=== PATIENT | female | born 1940 | race Caucasian/White ===

== ENCOUNTER 2018-02-03 19:43 | Inpatient (IN) ==
[2018-02-03] MEDS ORDERED: Naloxone 0.4 MG/ML INJ IVP PRN (22:58)
[2018-02-03] MEDS ORDERED: SODIUM CHLORIDE/NAHCO3/KCL/PEG 4,000 ML SOLN.RECON PO ONE (23:31)
[2018-02-03 23:42] LABS: Basophils # 0.1 K/mcL (0.0-0.2); Basophils % 0.7 %; Eosinophils # 0.3 K/mcL (0.0-0.6); Eosinophils % 3.2 %; Hematocrit 26.7 % (35.3-44.9); Hemoglobin 8.2 g/dL (11.5-15.4); Immature Granulocytes % 0.6 % (0-4); Lymphocytes # 1.8 K/mcL (0.6-4.6); Lymphocytes % 18.5 %; Mean Corpuscular HGB Conc 30.7 g/dL (31.6-35.5); Mean Corpuscular Hemoglobin 27.7 pg (28.0-33.3); Mean Corpuscular Volume 90.2 fL (83.0-100.0); Mean Platelet Volume 10.2 fL (9.4-12.4); Monocytes # 1.4 K/mcL (0.0-1.3); Monocytes % 13.9 %; Neutrophils # 6.2 K/mcL (1.6-8.9); Platelet Count 297 K/mcL (140-400); Red Blood Count 2.96 M/mcL (3.82-4.97); Red Cell Distribution Width 19.6 % (11.5-14.5); Segmented Neutrophils % 63.1 %
--- NOTE | 2018-02-04 01:05 | Internal Med History&Physical ---
Date of Encounter: 02/04/18 Time of Encounter: 01:04 Internal Medicine - H&P: HPI Chief complaint: Rectal bleeding Admitted From: Emergency Dept Plans for Post Hospital Care: Home History of present illness: Ms. Clark is a 77 year old female with history of ESRD, atrial fibrillation on anticoagulation, hypertension, hypothyroidism, who presents with complaints of rectal bleeding. Patient reports a 3 day history of bright red blood per rectum, with or without mixed stool. Reports similar episodes several years ago. She denies abdominal pain, nausea, vomiting, diarrhea. No melena, fevers or chills. Last colonoscopy was 3 years ago, which showed benign polyps. Patient is noted to be on anticoagulation with Pradaxa. No chest pain, dyspnea, palpitations. Past Med Surg Social Fam HX - Past Medical History Source: patient Medical history: atrial fibrillation, CHF, coronary artery disease, CVA, dialysis, hyperlipidemia, hypertension, renal disease, thyroid disease - Past Surgical History Surgical History: breast surgery, cholecystectomy, hysterectomy, orthopedic, other (right rotator cuff repair), other (nephrectomy) - Social History Smoking Status: Never smoker Smokeless Tobacco Status: No Alcohol use: unknown, rarely Drug use: none Occupational status: retired, disabled Current living situation: Home, With Family Activity Level: Independent ambulation Recent Out of Country Travel Within the Last 8 Weeks: No Exposure or Possible Exposure to Illness During Travel: No - Additional Family History Additional family history: reviewed and found noncontributory Internal Medicine - H&P: Meds Aspirin [Lo-Dose Aspirin EC] 81 mg PO 02/03/18 [History] Atorvastatin [Lipitor] 40 mg PO HS 02/03/18 [History] Dabigatran Etexilate Mesylate [Pradaxa] 75 mg PO DAILY 02/03/18 [History] Furosemide [Lasix] 20 mg PO 3XW 02/03/18 [History] 3 Allergy/AdvReac Type Severity Reaction Status Date / Time Penicillins AdvReac Unknown See Verified 02/03/18 23:30 Comments All Systems PM: A 10-system review of systems was performed and is negative for pertinent findings except as documented above in the HPI. - Constitutional Constitutional: no chills, no fever(s), no night sweats - EENT Eyes: no change in vision, no discharge, no pain, no photophobia Ears: no ear discharge, no ear pain, no tinnitus Nose, mouth and throat: no dysphagia, no nasal discharge, no neck pain, no sore throat - Cardiovascular Cardiovascular ROS IM: no chest pain, no diaphoresis, no dyspnea, no lightheadedness, no palpitations, no syncope - Respiratory Respiratory: no cough, no dyspnea, no wheezing, no excessive phlegm production - Gastrointestinal Gastrointestinal: hematochezia - Genitourinary Genitourinary: no change in urinary stream, no dysuria, no flank pain, no hematuria - Musculoskeletal Musculoskeletal ROS IM: no numbness, no tingling - Integumentary Integumentary IM: no rash, no unusual bruising - Neurological Neurological ROS: no confusion, no convulsions, no focal weakness, no numbness, no tingling, no tremor(s) - Hematologic/Lymphatic Hematologic/Lymphatic: no easy bruising - Constitutional Vitals: Temp Pulse Resp BP Pulse Ox 98.1 F 81 18 170/64 95 02/03/18 23:10 02/03/18 23:10 02/03/18 23:10 02/03/18 23:10 02/03/18 23:10 General appearance: Present: A&O X 3 (slightly drowsy but able to answer appropriately), answers questions appropriately - Respiratory Respiratory exam: Present: CTAB. Absent: accessory muscle use, rales, rhonchi, wheezes - Cardiovascular Cardiovascular exam: Present: irregular rhythm, +S1, +S2. Absent: diastolic murmur, gallop, rubs, systolic murmur - GI/Abdominal GI/Abdominal exam: Present: normal bowel sounds, soft, no peritoneal signs. Absent: distended, tenderness - Extremities Exam Extremities exam: Present: warm, radial pulses palpable and symmetrical. Absent : calf tenderness, cyanotic, pedal edema - Neurological Exam Neurological exam: Present: CN II-XII intact, oriented X3, no focal deficits. Absent: pronater drift, facial droop, speech deficit - Skin Skin exam: Present: dry, intact Internal Med - H&P Results - Labs CBC & Chem 7: 02/03/18 23:27 Labs: Short CBC 02/03/18 Range/Units 23:27 WBC 9.7 (4.3-11.1) K/mcL Hgb 8.2 L (11.5-15.4) g/dL Hct 26.7 L (35.3-44.9) % Plt Count 297 (140-400) K/mcL Neutrophils # 6.2 (1.6-8.9) K/mcL - EKG Data -: EKG Interpreted by Myself (atrial fibrillation) - Assessment and plan (1) GI bleed Current Visit: Yes Status: Acute Assessment and plan: Bright red bleeding per rectum reported. Hb currently stable, around 8.5; hold anticoagulation with Pradaxa for now. Monitor Hb closely. GI has been consulted , plan for possible colonoscopy in am; keep NPO for now; Qualifiers: GI bleed type/associated pathology: anorectal hemorrhage Qualified Code(s) : K62.5 - Hemorrhage of anus and rectum (2) ESRD on hemodialysis Current Visit: Yes Status: Chronic Assessment and plan: no missed HD sessions; next session on Tuesday; resume home meds; (3) Essential hypertension Current Visit: Yes Status: Chronic (4) Hyperlipidemia Current Visit: Yes Status: Chronic Qualifiers: Hyperlipidemia type: unspecified Qualified Code(s): E78.5 - Hyperlipidemia , unspecified (5) Atrial fibrillation Current Visit: Yes Status: Chronic Assessment and plan: rate-controlled; continue beta samira; hold anticoagulation with Pradaxa due to GI bleed; Qualifiers: Atrial fibrillation type: paroxysmal Qualified Code(s): I48.0 - Paroxysmal atrial fibrillation (6) CAD (coronary artery disease) Current Visit: Yes Status: Chronic Qualifiers: Coronary Disease-Associated Artery/Lesion type: [place] artery [place] vs. transplanted heart: [place] heart Associated angina: without angina Qualified Code(s): I25.10 - Atherosclerotic heart disease of [place] coronary artery without angina pectoris (7) Hypothyroidism Current Visit: Yes Status: Chronic Qualifiers: Hypothyroidism type: unspecified Qualified Code(s): E03.9 - Hypothyroidism , unspecified - Time Spent With Patient Total time spent is greater than 50% in coordination of care (as documented) at patient's floor/unit and/or counseling patient:
[2018-02-04 05:12] LABS: Basophils # 0.1 K/mcL (0.0-0.2); Basophils % 0.7 %; Eosinophils # 0.4 K/mcL (0.0-0.6); Eosinophils % 4.1 %; Hematocrit 27.1 % (35.3-44.9); Hemoglobin 8.1 g/dL (11.5-15.4); Immature Granulocytes % 0.4 % (0-4); Immature Platelets 2.4 % (1.1-6.1); Lymphocytes # 1.9 K/mcL (0.6-4.6); Lymphocytes % 19.8 %; Mean Corpuscular HGB Conc 29.9 g/dL (31.6-35.5); Mean Corpuscular Hemoglobin 27.4 pg (28.0-33.3); Mean Corpuscular Volume 91.6 fL (83.0-100.0); Mean Platelet Volume 10.1 fL (9.4-12.4); Monocytes # 1.2 K/mcL (0.0-1.3); Monocytes % 12.4 %; Neutrophils # 6.1 K/mcL (1.6-8.9); Platelet Count 317 K/mcL (140-400); Red Blood Count 2.96 M/mcL (3.82-4.97); Red Cell Distribution Width 19.5 % (11.5-14.5); Segmented Neutrophils % 62.6 %
[2018-02-04 05:34] LABS: Magnesium 1.6 mg/dL (1.6-2.6); Potassium 3.4 mEq/L (3.5-5.1)
[2018-02-04 05:35] LABS: Platelet Estimate Normal (Normal)
[2018-02-04 05:36] LABS: Anisocytosis 1+ (Not Present)
[2018-02-04] MEDS ORDERED: *HR* LORazepam 0.5 MG TABLET PO PRN (09:15)
[2018-02-04] MEDS ORDERED: Ondansetron 4 MG/2 ML VIAL IVP PRN (10:03)
--- NOTE | 2018-02-04 12:35 | Event Note ---
Date of Encounter: 02/04/18 Time of Encounter: 12:33 Nephrology Chart Review Hx of ESRD and biochemically there appear to be no urgent indications for HD today (Tuesday). Full consult to follow tomorrow. Thank you.
[2018-02-04 13:30] LABS: Basophils # 0.1 K/mcL (0.0-0.2); Basophils % 0.6 %; Eosinophils % 0.3 %; Hematocrit 29.5 % (35.3-44.9); Hemoglobin 8.9 g/dL (11.5-15.4); Immature Granulocytes % 0.4 % (0-4); Lymphocytes # 1.8 K/mcL (0.6-4.6); Lymphocytes % 12.9 %; Mean Corpuscular HGB Conc 30.2 g/dL (31.6-35.5); Mean Corpuscular Hemoglobin 27.5 pg (28.0-33.3); Monocytes # 1.2 K/mcL (0.0-1.3); Monocytes % 8.8 %; Neutrophils # 10.8 K/mcL (1.6-8.9); Platelet Count 320 K/mcL (140-400); Red Blood Count 3.24 M/mcL (3.82-4.97); Red Cell Distribution Width 19.4 % (11.5-14.5)
--- NOTE | 2018-02-04 13:30 | Internal Med Progress Note ---
Date of Encounter: 02/04/18 Time of Encounter: 12:56 - Assessment and plan (1) Sepsis Current Visit: Yes Status: Acute Assessment and plan: She does meet sepsis criteria with tachycardia and low grade fever will check CXR, UA, Blood cx and lactic acid will hold on IV fluids for now due to ESRD Will hold on Abx also for now.. since it's unclear etiology cont symptomatic and supportive care Qualifiers: Qualified Code(s): A41.9 - Sepsis, unspecified organism (2) GI bleed Current Visit: Yes Status: Acute Assessment and plan: Bright red bleeding per rectum Hb currently stable, around 8.5 Cont holding anticoagulation with Pradaxa for now Monitor Hb closely GI consulted Started on clear liquid diet possible colonoscopy in AM Qualifiers: GI bleed type/associated pathology: anorectal hemorrhage Qualified Code(s) : K62.5 - Hemorrhage of anus and rectum (3) ESRD on hemodialysis Current Visit: Yes Status: Chronic Assessment and plan: no missed HD sessions; next session on Tuesday; resume home meds Consulted Nephro (4) Essential hypertension Current Visit: Yes Status: Chronic Assessment and plan: will resume home meds (5) Hyperlipidemia Current Visit: Yes Status: Chronic Assessment and plan: on statin Qualifiers: Hyperlipidemia type: unspecified Qualified Code(s): E78.5 - Hyperlipidemia , unspecified (6) Atrial fibrillation Current Visit: Yes Status: Chronic Assessment and plan: rate failry controlled due to sepsis cont close monitoring cont BB for now held Pradaxa due to GI Bleed Qualifiers: Atrial fibrillation type: paroxysmal Qualified Code(s): I48.0 - Paroxysmal atrial fibrillation (7) CAD (coronary artery disease) Current Visit: Yes Status: Chronic Assessment and plan: resumed all home meds Qualifiers: Coronary Disease-Associated Artery/Lesion type: [place] artery [place] vs. transplanted heart: [place] heart Associated angina: without angina Qualified Code(s): I25.10 - Atherosclerotic heart disease of [place] coronary artery without angina pectoris (8) Hypothyroidism Current Visit: Yes Status: Chronic Assessment and plan: resume home meds Qualifiers: Hypothyroidism type: unspecified Qualified Code(s): E03.9 - Hypothyroidism , unspecified - Time Spent With Patient Total time spent is greater than 50% in coordination of care (as documented) at patient's floor/unit and/or counseling patient: - Subjective Interval history: Ms. Sumter is a 77 year old female with history of ESRD on HD M/W/F who had HD y/d, atrial fibrillation on anticoagulation with Pradaxa, hypertension, hypothyroidism, who presented to [facility] ER with complaints of rectal bleeding. Patient reports a 3 day history of bright red blood per rectum, with or without mixed stool. Reports similar episodes several years ago. She denies abdominal pain, nausea, vomiting, diarrhea. Last colonoscopy was 3 years ago, which showed benign polyps. Pt was given PO Ativan this morning, she looks little sleepy now. She is alert, awake and O x 3. Denied any CP. She does have low grade temp T max 100.1 - Constitutional Vitals: Temp Pulse Resp BP Pulse Ox 100.1 F H 134 20 176/97 85 02/04/18 12:39 02/04/18 12:39 02/04/18 12:39 02/04/18 12:39 02/04/18 12:39 General appearance: Present: A&O X 3 (slightly drowsy but able to answer appropriately), answers questions appropriately - Head Head exam: Present: atraumatic, normal inspection - Neck Neck exam general surgery: Present: supple - Respiratory Respiratory exam: Present: decreased breath sounds. Absent: rales, respiratory distress, rhonchi, wheezes - Cardiovascular Cardiovascular exam: Present: +S1, +S2, tachycardia. Absent: systolic murmur - GI/Abdominal GI/Abdominal exam: Present: normal bowel sounds, soft. Absent: rebound, rigid, tenderness - Extremities Exam Extremities exam: Present: pedal edema. Absent: calf tenderness, tenderness - Back Exam Back exam: Absent: CVA tenderness (L), CVA tenderness (R) - Neurological Exam Neurological exam: Present: alert, oriented X3 - Psychiatric Psychiatric exam: Present: normal affect, normal mood Internal Medicine: Result - Labs CBC & Chem 7: 02/04/18 04:48 02/04/18 04:48 Labs: Short CBC 02/03/18 02/04/18 Range/Units 23:27 04:48 WBC 9.7 9.7 (4.3-11.1) K/mcL Hgb 8.2 L 8.1 L (11.5-15.4) g/dL Hct 26.7 L 27.1 L (35.3-44.9) % Plt Count 297 317 (140-400) K/mcL Neutrophils # 6.2 6.1 (1.6-8.9) K/mcL BMP 02/04/18 04:48 Sodium 137 Potassium 3.4 L Chloride 96 L Carbon Dioxide 34 H BUN 15 Creatinine 2.61 H Glucose 100 Calcium 8.0 L Consult Discharge Plan - Plan Referrals: Tiffanie Dee [Primary Care Provider] -
[2018-02-04 14:05] LABS: ABG Base Excess 15 mEq/L (-2 to 3); ABG HCO3 39 mEq/L (21-27); ABG Oxygen Saturation 90 % (95-98); ABG PCO2 49 mmHg (35-45); ABG PH 7.51 pH Units (7.32-7.45); ABG PO2 54 mmHg (85-104); ABG TCO2 41 mEq/L (20-26)
[2018-02-04] MEDS: Acetaminophen 325 MG TABLET PO PRN (14:06)
[2018-02-04] MEDS ORDERED: Furosemide 40 MG/4 ML VIAL ONE (14:08)
[2018-02-04] MEDS ORDERED: Furosemide 40 MG/4 ML VIAL IVP ONE (14:08)
[2018-02-04 14:31] LABS: Albumin 2.9 g/dL (3.5-5.7); Bilirubin,Total 1.1 mg/dL (0.3-1.0); Calcium 8.3 mg/dL (8.6-10.3); Globulin 2.8 g/dL (2.4-3.5); Magnesium 1.6 mg/dL (1.6-2.6); Total Protein 5.7 g/dL (6.4-8.9)
[2018-02-04] MEDS: Ipratropium/Albuterol Neb 3 ML IH SCH ×2 (15:51→20:21)
[2018-02-04] MEDS: Piperacillin/Tazobactam 3.375 GM in 0.9 % Sodium Chloride Mini Bag 100 ML IVPB SCH (16:31)
[2018-02-04 18:20] LABS: Hematocrit 24.6 % (35.3-44.9); Hemoglobin 7.6 g/dL (11.5-15.4)
[2018-02-04 18:37] LABS: Adenovirus Not Detected (Not Detect); Bordetella Pertussis Not Detected (Not Detect); Chlamydophila pneumoniae Not Detected (Not Detect); Coronavirus 229E Not Detected (Not Detect); Coronavirus HKU1 Not Detected (Not Detect); Coronavirus NL63 Not Detected (Not Detect); Coronavirus OC43 Not Detected (Not Detect); Human Metapneumovirus Not Detected (Not Detect); Human Rhinovirus/Enterovirus Not Detected (Not Detect); Influenza A Subtype 2009 H1 Not Detected (Not Detect); Influenza A Untypeable Not Detected (Not Detect); Influenza B Not Detected (Not Detect); Mycoplasma pneumoniae Not Detected (Not Detect); Parainfluenza Virus 1 Not Detected (Not Detect); Parainfluenza Virus 2 Not Detected (Not Detect); Parainfluenza Virus 3 Not Detected (Not Detect); Parainfluenza Virus 4 Not Detected (Not Detect); Respiratory Syncytial Virus Not Detected (Not Detect)
[2018-02-04] MEDS ORDERED: *HR* Morphine 2 MG/ML SYRINGE IVP PRN ×2 (23:17→23:23)
--- NOTE | 2018-02-04 23:36 | Event Note ---
Date of Encounter: 02/04/18 Time of Encounter: 23:34 Rapid Response was called at 2310; arrived promptly to bedside; Patient was admitted yesterday for evaluation of GI bleed/hematochezia; she was also recently treated for acute CHF and Pneumonia at a different facility and discharged 3 days prior to this admission; SHe was noted to have fever, hypoxia and dyspnea earlier today and started on broad spectrum antibiotics and placed on BiPAP; Patient is noted to be tired and tachypneic, reports feeling sick; Chest- S1, S2 heard, tachycardic, irregular rhythm Lungs with coarse breath sounds and bibasal coarse crackles at bases Patient has been on BiPAP; she received a total of 4mg IV Morphine, with RR somewhat improved but no significant; ABG could not be obtained after 2 attemtps ; It was decided to intubate the patient; however she refused; RN and myself spoke to daughter Mayra Harmon, who confirmed patient signed paperwork for DNR /DNI at [facility]; Will start patient on IV Precedex drip and transfer to ICU/2N overflow for closer monitoring;
[2018-02-04] MEDS ORDERED: *HR* Morphine 2 MG/ML SYRINGE IVP ONE ×2 (23:45)
[2018-02-05] MEDS: Dexmedetomidine HCl 400 MCG/100 ML MLS IVC SCH (00:09)
[2018-02-05 00:47] LABS: Hematocrit 25.3 % (35.3-44.9); Hemoglobin 7.7 g/dL (11.5-15.4)
[2018-02-05] MEDS: Ipratropium/Albuterol Neb 3 ML IH SCH ×6 (01:11→20:32)
[2018-02-05 01:58] LABS: ABG Base Excess 10 mEq/L (-2 to 3); ABG HCO3 36 mEq/L (21-27); ABG Oxygen Saturation 91 % (95-98); ABG PCO2 54 mmHg (35-45); ABG PH 7.43 pH Units (7.32-7.45); ABG PO2 61 mmHg (85-104); ABG TCO2 38 mEq/L (20-26); Blood Gas Modality BiLevel; Blood Gas PEEP 6 cm H2O
[2018-02-05] MEDS ORDERED: Acetaminophen IV 500 MG/50 ML INFUS..BTL IVPB ONE (02:29)
[2018-02-05] MEDS: Piperacillin/Tazobactam 3.375 GM in 0.9 % Sodium Chloride Mini Bag 100 ML IVPB SCH ×2 (02:50→14:53)
[2018-02-05 03:57] LABS: Basophils # 0.1 K/mcL (0.0-0.2); Basophils % 0.6 %; Eosinophils % 0.1 %; Hematocrit 25.7 % (35.3-44.9); Hemoglobin 7.6 g/dL (11.5-15.4); Immature Granulocytes % 0.7 % (0-4); Lymphocytes # 2.1 K/mcL (0.6-4.6); Lymphocytes % 11.7 %; Mean Corpuscular HGB Conc 29.6 g/dL (31.6-35.5); Mean Corpuscular Hemoglobin 27.2 pg (28.0-33.3); Mean Corpuscular Volume 92.1 fL (83.0-100.0); Monocytes # 0.8 K/mcL (0.0-1.3); Monocytes % 4.6 %; Neutrophils # 14.6 K/mcL (1.6-8.9); Platelet Count 276 K/mcL (140-400); Red Blood Count 2.79 M/mcL (3.82-4.97); Segmented Neutrophils % 82.3 %
[2018-02-05 04:17] LABS: Albumin 2.8 g/dL (3.5-5.7); Calcium 8.2 mg/dL (8.6-10.3); Phosphorous 3.8 mg/dL (2.7-4.5); Potassium 4.1 mEq/L (3.5-5.1)
[2018-02-05] MEDS ORDERED: Aminoglycoside Consult 1 EACH MC ONE (07:36)
[2018-02-05] MEDS ORDERED: Furosemide 40 MG/4 ML VIAL IVP ONE (07:57)
--- NOTE | 2018-02-05 08:05 | Internal Med Progress Note ---
Date of Encounter: 02/05/18 Time of Encounter: 08:00 - Assessment and plan (1) Acute respiratory failure with hypoxia and hypercapnia Current Visit: Yes Status: Acute Assessment and plan: Due to MLL PNA Reviewed CXR from y/d showed MLL infiltrates and inc vascular congestion reviewed ABG cont BiPAP for now NPO Last night pt and her family requested for DNR / DNI will talk to the family again today cont broad spec abx Zosyn and Vanc Sputum legionella and Strep - negative Resp viral panel - Negative Blood cx - P Sputum cx- P Pt is still high risk and required current level of critical care strict I & O ordered f.u CXR also gave another dose of Lasix 40mg today Will talk to Nephro about possible HD today (2) HCAP (healthcare-associated pneumonia) Current Visit: Yes Status: Acute Assessment and plan: mostly bacetrail cont broad spec abx (3) Sepsis Current Visit: Yes Status: Acute Assessment and plan: She does meet sepsis criteria with tachycardia, fever and source of inf as PNA cont broad spec abx Q6 Accu check Qualifiers: Qualified Code(s): A41.9 - Sepsis, unspecified organism (4) GI bleed Current Visit: Yes Status: Acute Assessment and plan: Bright red bleeding per rectum Hb currently stable, around 7.6 Cont holding anticoagulation with Pradaxa for now Monitor Hb closely GI consulted Started on clear liquid diet possible colonoscopy on Tuesday when pt's resp function stabilizes Qualifiers: GI bleed type/associated pathology: anorectal hemorrhage Qualified Code(s) : K62.5 - Hemorrhage of anus and rectum (5) ESRD on hemodialysis Current Visit: Yes Status: Chronic Assessment and plan: no missed HD sessions; next session on Tuesday; resume home meds Will talk to nephro about possible HD today (6) Essential hypertension Current Visit: Yes Status: Chronic Assessment and plan: will resume home meds (7) Hyperlipidemia Current Visit: Yes Status: Chronic Assessment and plan: on statin Qualifiers: Hyperlipidemia type: unspecified Qualified Code(s): E78.5 - Hyperlipidemia , unspecified (8) Atrial fibrillation Current Visit: Yes Status: Chronic Assessment and plan: rate failry controlled due to sepsis cont close monitoring cont BB for now held Pradaxa due to GI Bleed Qualifiers: Atrial fibrillation type: paroxysmal Qualified Code(s): I48.0 - Paroxysmal atrial fibrillation (9) CAD (coronary artery disease) Current Visit: Yes Status: Chronic Assessment and plan: resumed all home meds Qualifiers: Coronary Disease-Associated Artery/Lesion type: [place] artery [place] vs. transplanted heart: [place] heart Associated angina: without angina Qualified Code(s): I25.10 - Atherosclerotic heart disease of [place] coronary artery without angina pectoris (10) Hypothyroidism Current Visit: Yes Status: Chronic Assessment and plan: resume home meds Qualifiers: Hypothyroidism type: unspecified Qualified Code(s): E03.9 - Hypothyroidism , unspecified - Time Spent With Patient Total time spent is greater than 50% in coordination of care (as documented) at patient's floor/unit and/or counseling patient: - Subjective Interval history: Ms. Clark is a 77 year old female with history of ESRD on HD M/W/F who had HD y/d, atrial fibrillation on anticoagulation with Pradaxa, hypertension, hypothyroidism, who presented to [facility] ER with complaints of rectal bleeding. Patient reports a 3 day history of bright red blood per rectum, with or without mixed stool. Reports similar episodes several years ago. She denies abdominal pain, nausea, vomiting, diarrhea. Last colonoscopy was 3 years ago, which showed benign polyps. Pt went into acute hypoxic and hypercapneic resp failure with multi lobular pneumonia y/d. So pt was started on empirical abx Zosyn, Vancomycin and placed her on BiPAP. Later last night around 11 PM she became more SOB and tachypneic. pt refused for intubation and requested for DNR/DNI only. Pt was transferred to ICU for further care. When I examined the pt this morning she is alert, awake and O to self. She is currently on BiPAP 09/07 , Fio2 60% Spo2 - 96. Pt denied any CP. Currently on precedex gtt. - Constitutional Vitals: Temp Pulse Resp BP Pulse Ox 99.7 F H 84 31 105/45 99 02/05/18 07:57 02/05/18 06:00 02/05/18 06:00 02/05/18 06:00 02/05/18 06:00 General appearance: Present: A&O X 3 (slightly drowsy but able to answer appropriately), severe distress, answers questions appropriately - Head Head exam: Present: atraumatic, normal inspection - Respiratory Respiratory exam: Present: decreased breath sounds, rales, respiratory distress , rhonchi, wheezes - Cardiovascular Cardiovascular exam: Present: irregular rhythm, +S1, +S2. Absent: tachycardia - GI/Abdominal GI/Abdominal exam: Present: normal bowel sounds, soft. Absent: rebound, rigid, tenderness - Extremities Exam Extremities exam: Present: pedal edema. Absent: calf tenderness, tenderness - Back Exam Back exam: Absent: CVA tenderness (L), CVA tenderness (R) - Neurological Exam Neurological exam: Present: alert, altered - Psychiatric Psychiatric exam: Present: anxious - Skin Skin exam: Absent: rash Internal Medicine: Result - Labs CBC & Chem 7: 02/05/18 03:45 02/05/18 03:45 Labs: Short CBC 02/04/18 02/04/18 02/05/18 Range/Units 13:17 18:11 00:38 WBC 14.0 H (4.3-11.1) K/mcL Hgb 8.9 L 7.6 L 7.7 L (11.5-15.4) g/dL Hct 29.5 L 24.6 L 25.3 L (35.3-44.9) % Plt Count 320 (140-400) K/mcL Neutrophils # 10.8 H (1.6-8.9) K/mcL 02/05/18 Range/Units 03:45 WBC 17.8 H (4.3-11.1) K/mcL Hgb 7.6 L (11.5-15.4) g/dL Hct 25.7 L (35.3-44.9) % Plt Count 276 (140-400) K/mcL Neutrophils # 14.6 H (1.6-8.9) K/mcL BMP 02/04/18 02/05/18 13:17 03:45 Sodium 138 135 L Potassium 4.0 4.1 Chloride 95 L 95 L Carbon Dioxide 35 H 32 H BUN 19 25 H Creatinine 3.08 H 3.66 H Glucose 96 103 Calcium 8.3 L 8.2 L Liver Function 02/04/18 02/05/18 Range/Units 13:17 03:45 Total Bilirubin 1.1 H (0.3-1.0) mg/dL AST 19 (13-39) Units/L ALT 14 (7-52) Units/L Alkaline Phosphatase 109 H (34-104) Units/L Albumin 2.9 L 2.8 L (3.5-5.7) g/dL - ABG Interpretation ABG results: ABG ABG pH 7.43 pH Units (7.32-7.45) 02/05/18 01:55 ABG pCO2 54 mmHg (35-45) H 02/05/18 01:55 ABG pO2 61 mmHg (85-104) L 02/05/18 01:55 ABG O2 Saturation 91 % (95-98) L 02/05/18 01:55 - Impressions Impressions Chest X-Ray 02/04/18 12:49 IMPRESSION: Severe diffuse bilateral pulmonary opacity which could be due to extremely large bilateral pneumonias. If the patient is not critically ill, the opacities could be due to metastatic disease. Small right pleural effusion. RECOMMENDATION: CT chest with contrast may be of benefit if the clinical picture is unclear. D/ / Be Cadet MD / Be Cadet MD Interpreting Provider: Be Cadet MD Consult Discharge Plan - Plan Referrals: Tiffanie Dee [Primary Care Provider] -
--- NOTE | 2018-02-05 10:05 | Nephrology Consult Note ---
Date of Encounter: 02/05/18 Time of Encounter: 08:10 Assessment and Plan (1) ESRD on hemodialysis Current Visit: Yes Status: Chronic ESRD on HD // and her primary painter sign maintenance is from [place], [place], who does not round at [facility]. I'd be happy to help continue her HD during this admission for HCAP and acute respiratory distress. She has been on HD about 2 years, and last had HD on Tuesday, she said; and still makes urine. Agree with diuretics today (Tuesday), and plan for HD in the AM (Tuesday) Discussed with the hospitalist. Thank you for consulting the [facility]. Will follow with you. (2) Essential hypertension Current Visit: Yes Status: Chronic (3) Acute respiratory failure with hypoxia and hypercapnia Current Visit: Yes Status: Acute (4) HCAP (healthcare-associated pneumonia) Current Visit: Yes Status: Acute History of Present Illness - Reason for Consult Consult date: 02/04/18 end stage renal disease Requesting physician: Dru Leigh - Chief Complaint ESRD - History of Present Illness Marian Clark is a very pleasant 77 y/o WF with a pmh of ESRD on HD M// who presented with a GIB. She was seen/examined in the ICU while on BiPAP, so she was not able to provide much history while she wore the mask. No family was present. She reported that she undergoes dialysis in [place], [place], but I could not understand her words when she replied as to who her painter sign maintenance is. She affirmed with head shaking that she last underwent HD on Tuesday, and she was able to report that she's been on HD for about two years. She affirmed that she still makes urine. She dialyzes via a LUE AVF. Her med list suggest that she 's routinely taking Pradaxa. Past Med Surg Social Fam HX - Past Medical History Medical history: atrial fibrillation, CHF, coronary artery disease, CVA, dialysis, hyperlipidemia, hypertension, renal disease, thyroid disease - Past Surgical History Surgical History: breast surgery, cholecystectomy, hysterectomy, orthopedic, other (right rotator cuff repair), other (nephrectomy) - Social History Smoking Status: Never smoker Smokeless Tobacco Status: No Alcohol use: unknown, rarely Drug use: none Medications and Allergies Aspirin [Lo-Dose Aspirin EC] 81 mg PO DAILY 02/03/18 [History] Atorvastatin [Lipitor] 40 mg PO HS 02/03/18 [History] Dabigatran Etexilate Mesylate [Pradaxa] 75 mg PO DAILY 02/03/18 [History] Furosemide [Lasix] 20 mg PO 3XW PRN 02/03/18 [History] Albuterol Sulfate [Proair Hfa] 1 puff IH Q4H PRN 02/04/18 [History] Dicyclomine [Bentyl] 20 mg PO TID 02/04/18 [History] Levothyroxine Sodium [Synthroid] 137 mcg PO DAILY@0630 02/04/18 [History] Metoprolol XL (24 HR) Succ [Toprol XL] 25 mg PO DAILY@1200 02/04/18 [History] Digoxin [Lanoxin] 0.125 mg PO Q48H 02/05/18 [History] Clopidogrel [Plavix] 75 mg PO DAILY 02/06/18 [History] Diltiazem HCl [Diltiazem 24Hr Cd] 180 mg PO QAM 02/06/18 [History] Isosorbide MONOnitrate (24 HR) [Imdur] 60 mg PO DAILY@1200 02/06/18 [History] 3 Allergy/AdvReac Type Severity Reaction Status Date / Time Penicillins AdvReac Unknown See Verified 02/03/18 23:30 Comments Review of Systems All Systems: reviewed and no additional remarkable complaints except as stated ( but largely limited d/t the BiPAP and her work of breathing that thus limited her conversation.) Exam - Vital Signs Vital signs: Initial Vital Signs Temp Pulse Resp BP Pulse Ox 98.1 F 81 18 170/64 95 02/03/18 23:10 02/03/18 23:10 02/03/18 23:10 02/03/18 23:10 02/03/18 23:10 Vital Signs - Last 8 Hours Temp Pulse Resp BP Pulse Ox 02/05/18 09:00 83 25 102/45 99 02/05/18 08:00 93 28 118/38 97 02/05/18 07:57 99.7 F H 02/05/18 07:52 34 118/38 95 02/05/18 07:00 79 45 121/54 90 02/05/18 06:00 84 31 105/45 99 02/05/18 05:00 100 24 91/51 97 02/05/18 04:00 100.1 F H 114 26 96/46 94 02/05/18 03:17 26 150/67 94 02/05/18 03:00 105 34 150/67 90 Intake and Output 02/04/18 02/05/18 02/05/18 23:59 07:59 15:59 Intake Total 100 / 100 13 / 13 Output Total 200 / 200 Balance 100 / 100 -187 / -187 Intake: IV Fluids 100 / 100 PRECEDEX Premix 400 mcg In 100 13 / ml @ 0.2 MCG/KG/HR 4.08 mls/hr IVC .Q24H ALISA Rx#:[id number] Zosyn 3.375 GM In 0.9 % Sodium 100 / 100 Chloride (Mini-Bag +) 100 ML @ 25 mls/hr IVPB Q12H ALISA Rx#: [id number] Output: Catheter 200 / 200 Other: Stool Size Small Large Stool Consistency loose soft Stool Characteristics Normal for Patient Stool Color Brown # Bowel Movements 1 1 # Bowel Movement Diapers 1 Weight 83.7 kg Blood Glucose* 108 Patient Weight 02/05/18 23:59 Weight 83.7 kg - General Appearance General appearance: appears started age, moderate distress, fatigue, frail EENT: mucous membranes moist Neck: supple Respiratory: course breath sounds Cardiology: edema (trace ankle edema with wrinkles noted bilaterally), rapid rhythm, normal S1, normal S2 - Dialysis Access Dialysis Vascular Access: Arteriovenous Fistula (left upper arm AVF with excellent thrill and bruit) thrill: Yes bruit: Yes Gastrointestinal: normoactive bowel sounds, no tenderness, no guarding Integumentary: warm and dry, ecchymotic Neurologic: no asterixis Musculoskeletal: no cyanosis, no clubbing Psychiatric: mood/affect appropriate, cooperative Results - Lab Results 02/06/18 04:08 02/06/18 04:08 Most recent lab results ABG pH 7.43 pH Units (7.32-7.45) 02/05/18 01:55 ABG pCO2 54 mmHg (35-45) H 02/05/18 01:55 ABG pO2 61 mmHg (85-104) L 02/05/18 01:55 ABG HCO3 36 mEq/L (21-27) H 02/05/18 01:55 ABG O2 Saturation 91 % (95-98) L 02/05/18 01:55 Calcium 8.2 mg/dL (8.6-10.3) L 02/05/18 03:45 Phosphorus 3.8 mg/dL (2.7-4.5) 02/05/18 03:45 Magnesium 1.6 mg/dL (1.6-2.6) 02/04/18 13:17 I reviewed the labs, meds, vitals, imaging and progress notes. Consult Discharge Plan - Plan Referrals: Tiffanie Dee [Primary Care Provider] -
[2018-02-05] MEDS ORDERED: *HR* LORazepam 2 MG/ML VIAL IVP ONE ×2 (15:23→20:07)
[2018-02-05] MEDS ORDERED: *HR* Metoprolol 5 MG/5 ML VIAL IVP SCH (15:30)
--- NOTE | 2018-02-05 16:30 | Event Note ---
Date of Encounter: 02/05/18 Time of Encounter: 16:27 Spoke to pt's daughter at bed side and explained to her about current care and critical situation. Currently pt is stable on BiPAP, however if she gets tired , she does need to be intubated. Pts daughter stated if it is temporally for few days, she would like to consider the ventilator option. We tried to talk to pt, however she just got ativan and looks sleepy and altered. So will change her code status to DNR only.. Will try to avoid ventilator as much as we can, but is she is unable to maintain her airway with BiPAP will consider intubation.
[2018-02-05] MEDS ORDERED: *HR* Metoprolol 5 MG/5 ML VIAL IVP PRN (19:55)
[2018-02-05] MEDS ORDERED: Levalbuterol Neb 1.25 MG/3 ML IH PRN (20:57)
[2018-02-05 21:33] LABS: ABG Base Excess 9 mEq/L (-2 to 3); ABG HCO3 35 mEq/L (21-27); ABG Oxygen Saturation 96 % (95-98); ABG PCO2 59 mmHg (35-45); ABG PH 7.38 pH Units (7.32-7.45); ABG PO2 84 mmHg (85-104); ABG TCO2 37 mEq/L (20-26); Blood Gas Modality NIV
[2018-02-05] MEDS ORDERED: Amiodarone Premix 150 MG/100 ML BAG IVPB ONE (21:37)
[2018-02-05] MEDS ORDERED: Amiodarone Premix 360 MG/200 ML BAG IVC ONE (22:00)
[2018-02-06] MEDS: Ipratropium/Albuterol Neb 3 ML IH SCH ×6 (00:05→20:08)
[2018-02-06] MEDS ORDERED: Lacri-Lube 3.5 GM TUBE BOTH EYES PRN (00:48)
[2018-02-06] MEDS: Dexmedetomidine HCl 400 MCG/100 ML MLS IVC SCH ×4 (01:17→20:59)
[2018-02-06] MEDS: FentaNYL (PF) 1,000 MCG in 0.9 % Sodium Chloride 80 ML IVC SCH (01:48)
[2018-02-06] MEDS: Piperacillin/Tazobactam 3.375 GM in 0.9 % Sodium Chloride Mini Bag 100 ML IVPB SCH ×2 (03:24→15:12)
--- NOTE | 2018-02-06 03:25 | Event Note ---
Date of Encounter: 02/06/18 Time of Encounter: 13:22 Patient with respiratory issues since the start of my shit. Patient is tachypnic throughout the night on Bipap. ABG ordered showing mild hyprcarbia and normal PH. Ativan given and didn't help. We had issues initially trying to establish code status as there seemed to be some confusion. Eventually, the daughter (POA) was called and was agreeable to intubation as patient was becoming lethargic. Patient was intubated with respiratroy. Images showed good positioning of ET tube afterwards. She also went into afib with RVR earlier in the night and I started an amio drip which seems to have help.
--- NOTE | 2018-02-06 03:28 | Procedure Note ---
Date of procedure: 02/06/18 Pre-op diagnosis: Respiratory failure Post-op diagnosis: same Procedure: ET intubation 7.5 ET tube Anesthesia: IV sedation (20 mg IV etomidate) Was there an molding line assistant present: No Estimated blood loss (cc): 0 Specimen: none Pathology: none sent Condition: stable Disposition: ICU
[2018-02-06] MEDS: Lacri-Lube 3.5 GM TUBE BOTH EYES SCH ×5 (04:13→20:59)
[2018-02-06] MEDS: Amiodarone Premix 360 MG/200 ML BAG IVC SCH ×2 (04:13→16:15)
[2018-02-06 04:24] LABS: Basophils # 0.1 K/mcL (0.0-0.2); Basophils % 0.6 %; Eosinophils # 0.1 K/mcL (0.0-0.6); Eosinophils % 0.9 %; Hematocrit 24.5 % (35.3-44.9); Hemoglobin 7.2 g/dL (11.5-15.4); Immature Granulocytes % 0.7 % (0-4); Lymphocytes # 1.6 K/mcL (0.6-4.6); Lymphocytes % 16.3 %; Mean Corpuscular HGB Conc 29.4 g/dL (31.6-35.5); Mean Corpuscular Hemoglobin 27.5 pg (28.0-33.3); Mean Corpuscular Volume 93.5 fL (83.0-100.0); Mean Platelet Volume 10.7 fL (9.4-12.4); Monocytes # 0.4 K/mcL (0.0-1.3); Monocytes % 4.3 %; Neutrophils # 7.7 K/mcL (1.6-8.9); Platelet Count 181 K/mcL (140-400); Red Blood Count 2.62 M/mcL (3.82-4.97); Red Cell Distribution Width 19.2 % (11.5-14.5); Segmented Neutrophils % 77.2 %
[2018-02-06 04:40] LABS: Calcium 7.9 mg/dL (8.6-10.3); Magnesium 1.7 mg/dL (1.6-2.6); Potassium 4.7 mEq/L (3.5-5.1)
[2018-02-06] MEDS ORDERED: 0.9 % Sodium Chloride 250 ML IVC PRN (07:03)
[2018-02-06] MEDS ORDERED: 0.9 % Sodium Chloride 1,000 ML ONE (07:44)
[2018-02-06] MEDS: Chlorhexidine Rinse 15 ML MOUTHWASH MM SCH ×2 (07:48→21:03)
[2018-02-06] MEDS ORDERED: *HR* Etomidate 20 MG/10 ML AMPUL IVP ONE (07:52)
--- NOTE | 2018-02-06 08:06 | Pulmonology Consult Note ---
<ChantalDerek hernandez M - Last Filed: 02/06/18 10:09> Date of Encounter: 02/06/18 Medications and Allergies Aspirin [Lo-Dose Aspirin EC] 81 mg PO DAILY 02/03/18 [History] Atorvastatin [Lipitor] 40 mg PO HS 02/03/18 [History] Dabigatran Etexilate Mesylate [Pradaxa] 75 mg PO DAILY 02/03/18 [History] Furosemide [Lasix] 20 mg PO 3XW PRN 02/03/18 [History] Albuterol Sulfate [Proair Hfa] 1 puff IH Q4H PRN 02/04/18 [History] Dicyclomine [Bentyl] 20 mg PO TID 02/04/18 [History] Levothyroxine Sodium [Synthroid] 137 mcg PO DAILY@0630 02/04/18 [History] Metoprolol XL (24 HR) Succ [Toprol XL] 25 mg PO DAILY@1200 02/04/18 [History] Digoxin [Lanoxin] 0.125 mg PO Q48H 02/05/18 [History] Clopidogrel [Plavix] 75 mg PO DAILY 02/06/18 [History] Diltiazem HCl [Diltiazem 24Hr Cd] 180 mg PO QAM 02/06/18 [History] Isosorbide MONOnitrate (24 HR) [Imdur] 60 mg PO DAILY@1200 02/06/18 [History] 3 Allergy/AdvReac Type Severity Reaction Status Date / Time Penicillins AdvReac Unknown See Verified 02/03/18 23:30 Comments All Systems: The remainder of the systems were reviewed and are negative Physical Examination Vital Signs: Vital Signs, Last 4 Hours Temp Pulse Resp BP Pulse Ox 02/06/18 08:00 96.7 F L 131 20 111/62 96 02/06/18 07:55 20 97 02/06/18 07:52 96.7 F L 02/06/18 07:00 123 20 88/47 90 02/06/18 06:17 24 100/48 97 02/06/18 06:00 125 24 100/48 95 Ventilator Settings Ventilator Settings: Ventilator Settings, Last 8 Hours Ventilator Mode VC+ Ventilator Mode VC+ Ventilator Mode VC+ Ventilator Mode VC+ Ventilator Mode VC+ Ventilator Mode VC+ Ventilator Tidal Volume 550 Setting Ventilator Tidal Volume 550 Setting Ventilator Tidal Volume 420 Setting Ventilator Tidal Volume 420 Setting Ventilator Tidal Volume 420 Setting Ventilator Tidal Volume 420 Setting Ventilator Tidal Volume 420 Setting Ventilator Tidal Volume 420 Setting Ventilator Tidal Volume 420 Setting Ventilator Respiratory Rate 20 Setting Ventilator Respiratory Rate 20 Setting Ventilator Respiratory Rate 20 Setting Ventilator Respiratory Rate 20 Setting Ventilator Respiratory Rate 20 Setting Ventilator Respiratory Rate 20 Setting Ventilator Respiratory Rate 20 Setting Ventilator Respiratory Rate 20 Setting Ventilator Respiratory Rate 20 Setting Actual Respiratory Rate 20 Actual Respiratory Rate 20 Actual Respiratory Rate 20 Actual Respiratory Rate 25 Actual Respiratory Rate 22 Actual Respiratory Rate 21 Actual Respiratory Rate 22 Actual Respiratory Rate 25 Actual Respiratory Rate 22 Actual Respiratory Rate 20 Positive End Expiratory 5 Pressure Positive End Expiratory 5 Pressure Positive End Expiratory 5 Pressure Positive End Expiratory 5 Pressure Positive End Expiratory 5 Pressure Positive End Expiratory 5 Pressure Positive End Expiratory 5 Pressure Positive End Expiratory 5 Pressure Positive End Expiratory 5 Pressure Positive End Expiratory 5 Pressure Peak Inspiratory Airway 42 Pressure Peak Inspiratory Airway 43 Pressure Peak Inspiratory Airway 41 Pressure Peak Inspiratory Airway 32 Pressure Peak Inspiratory Airway 33 Pressure Peak Inspiratory Airway 34 Pressure Peak Inspiratory Airway 31 Pressure Peak Inspiratory Airway 31 Pressure Peak Inspiratory Airway 32 Pressure Peak Inspiratory Airway 33 Pressure Results - Laboratory Findings CBC and BMP: 02/06/18 04:08 02/06/18 04:08 ABG ABG pH 7.38 pH Units (7.32-7.45) 02/05/18 21:29 ABG pCO2 59 mmHg (35-45) H 02/05/18 21:29 ABG pO2 84 mmHg (85-104) L 02/05/18 21:29 ABG O2 Saturation 96 % (95-98) 02/05/18 21:29 Abnormal lab findings: Abnormal lab results RBC 2.62 M/mcL (3.82-4.97) L 02/06/18 04:08 Hgb 7.2 g/dL (11.5-15.4) L 02/06/18 04:08 Hct 24.5 % (35.3-44.9) L 02/06/18 04:08 MCH 27.5 pg (28.0-33.3) L 02/06/18 04:08 MCHC 29.4 g/dL (31.6-35.5) L 02/06/18 04:08 RDW 19.2 % (11.5-14.5) H 02/06/18 04:08 Anisocytosis 1+ (Not Present) A 02/04/18 04:48 ABG pCO2 59 mmHg (35-45) H 02/05/18 21:29 ABG pO2 84 mmHg (85-104) L 02/05/18 21:29 ABG HCO3 35 mEq/L (21-27) H 02/05/18 21:29 ABG Total CO2 37 mEq/L (20-26) H 02/05/18 21:29 ABG Base Excess 9 mEq/L (-2 to 3) H 02/05/18 21:29 Chloride 95 mEq/L (98-107) L 02/06/18 04:08 BUN 38 mg/dL (8-23) H 02/06/18 04:08 Creatinine 4.40 mg/dL (0.60-1.20) H 02/06/18 04:08 Est GFR ( Amer) 12 (> 60) L 02/06/18 04:08 Est GFR (Non-Af Amer) 10 (> 60) L 02/06/18 04:08 Glucose 111 mg/dL (70-105) H 02/06/18 04:08 POC Glucose 125 mg/dL (70-99) H 02/06/18 00:06 Calcium 7.9 mg/dL (8.6-10.3) L 02/06/18 04:08 Total Bilirubin 1.1 mg/dL (0.3-1.0) H 02/04/18 13:17 Alkaline Phosphatase 109 Units/L (34-104) H 02/04/18 13:17 B-Natriuretic Peptide 1779 pg/mL (Less than 100) H 02/06/18 04:08 Serum Total Protein 5.7 g/dL (6.4-8.9) L 02/04/18 13:17 Albumin 2.8 g/dL (3.5-5.7) L 02/05/18 03:45 Albumin/Globulin Ratio 1.0 (1.1-2.2) L 02/04/18 13:17 - Microbiology Findings Microbiology Findings: Microbiology, Last 48 Hours 02/04/18 13:17 Blood Culture - Preliminary Peripheral Venipuncture No growth. 02/04/18 12:45 Legionella Antigen - Final Urine,Clean Catch Streptococcus pneumoniae Antigen (M - Final - Clinical Findings Intake & Output: Intake & Output 02/05/18 02/06/18 02/06/18 23:59 07:59 15:59 Intake Total 287 / 287 100 / 100 Output Total 100 / 100 25 / 25 Balance 187 / 187 75 / 75 Weight 84.9 kg Consult Discharge Plan - Plan Referrals: Tiffanie Dee [Primary Care Provider] - - Attending Attestation I examined this patient and my medical decision-making was reviewed with the Resident Physician. I agree with the documented findings, disposition and treatment plan as described except to the extent set forth below. Patient seen and examined. Labs, radiology, chart personally reviewed. 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 Pt will need HD and fluid removal as much as possible. Vent changes and need follow up ABG. Cardiovascular: A. fib and not candidate for anticoagulation. Will add B- samira. GI: Nutrition per dietary and GI prophylaxis per routine. Questionable GI bleed. Need GI prophylaxis Heme: DVT prophylaxis per routine. Mechanical DVT prophylaxis. ID: Continue antibiotics and plan to de-escalation. Stop Vancomycin Renal; ESRD and HD Endorcine: blood glucose is monitored Lines: all lines checked and no evidence of infections Skin: skin care to prevent pressure ulcers per nursing routine care Palliative consultation I spent 35 min of Critical Care time with this patient. It involved decision making of high complexity to assess, manipulate, and support vital organ system failure and/or to prevent further life threatening deterioration of the patient 's condition. The time involved in the performance of separately reportable procedures was not counted toward critical care time. <Joe Kemp - Last Filed: 02/06/18 16:35> Date of Encounter: 02/06/18 Time of Encounter: 08:42 Assessment and Plan (1) Acute respiratory failure with hypoxia and hypercapnia Current Visit: Yes Status: Acute Due to middle lower lobe pneumonia Review chest x-ray which shows no worsening progression of the pneumonia. Reviewed ABG which today shows pH 7.71 PCO2 25 bicarbonate 31 ventilator tidal volume and respiratory rate were changed accordingly. Patient is still intubated and on the ventilator. Patient is now only on Zosyn as vancomycin was stopped. Blood culture showed no growth Legionella panel negative. Respiratory viral panel negative, sputum cultures still pending. Strict I's and O's will continue follow-up chest x-rays will continue diuresis with Lasix 40 mg daily. Nephrology is dialyzing today. We will speak with palliative care to speak with the family about the DNR/DNI status that the patient agreed to prior to being intubated. We will make a plan as whether or not the patient needs to be further intubated. Will await palliative's recommendations (2) HCAP (healthcare-associated pneumonia) Current Visit: Yes Status: Acute Serial blood cultures came back negative sputum culture still pending We will discontinue the vancomycin. Continue Zosyn. (3) Sepsis Current Visit: Yes Status: Acute Patient did meet sepsis criteria when she was here as she was tachycardic to the fever and the ears known source of infection with the middle lower lobe pneumonia. She was placed on Zosyn and vancomycin broad-spectrum antibiotics. Blood cultures are came back negative sputum cultures are still pending. At this time we will de-escalate antibiotics to only Zosyn and stop the vancomycin. We will continue to monitor sepsis. Patient is not in septic shock at this time not needing pressors Qualifiers: Sepsis type: sepsis due to unspecified organism Qualified Code(s): A41.9 - Sepsis, unspecified organism (4) Atrial fibrillation Current Visit: Yes Status: Chronic Patient was in A. fib with RVR last night most likely due to being in respiratory distress. Amiodarone was started. Patient is still on amiodarone. Metoprolol 12.5 mg is given twice daily as well as Lopressor is ordered when necessary heart rate greater than 130. We are not anticoagulate the patient due to her being here for a GI bleed. Qualifiers: Atrial fibrillation type: paroxysmal Qualified Code(s): I48.0 - Paroxysmal atrial fibrillation (5) GI bleed Current Visit: Yes Status: Acute This is the patient's presenting illness. She did have bright red blood per rectum There is been no signs of bright red blood per rectum since being in the ICU. Hemoglobin stable at 7.2. Continue holding anticoagulation with Pradaxa for now. Continue to monitor hemoglobin closely. GI has consulted see their consult note recommendations as we will do colonoscopy when patient stabilizes they do not see any bleeding at this time. Qualifiers: GI bleed type/associated pathology: anorectal hemorrhage Qualified Code(s) : K62.5 - Hemorrhage of anus and rectum (6) ESRD on hemodialysis Current Visit: Yes Status: Chronic No missed hemodialysis sessions she is getting hemodialysis today We will await further recommendations from nephrology (7) Essential hypertension Current Visit: Yes Status: Chronic Will resume home meds (8) Hyperlipidemia Current Visit: Yes Status: Chronic Will resume home meds Qualifiers: Hyperlipidemia type: unspecified Qualified Code(s): E78.5 - Hyperlipidemia , unspecified (9) CAD (coronary artery disease) Current Visit: Yes Status: Chronic Will resume home meds continue no anticoagulation. Qualifiers: Coronary Disease-Associated Artery/Lesion type: [place] artery [place] vs. transplanted heart: [place] heart Associated angina: without angina Qualified Code(s): I25.10 - Atherosclerotic heart disease of [place] coronary artery without angina pectoris (10) Hypothyroidism Current Visit: Yes Status: Chronic Will resume home meds Qualifiers: Hypothyroidism type: unspecified Qualified Code(s): E03.9 - Hypothyroidism , unspecified History of Present Illness Consult date: 02/06/18 Requesting physician: Dru Leigh Reason for consult: dyspnea Chief complaint: GI Bleed History of present illness: Ms. Clark is a 77-year-old female with history of ESRD, atrial fibrillation on anticoagulation (pradaxa), hypertension, hypothyroidism who presented to the emergency department on 02/03/18 with a 3 day history of bright red blood per rectum. She said she had a similar episode a few years ago. She denies denied any abdominal pain nausea or vomiting or diarrhea. No melena fevers or chills. Her last colonoscopy was approximately 3 years ago which showed which showed benign polyps. Patient is a hemodialysis patient Tuesday. Is being followed by nephrology there were no missed dialysis appointment prior to admission. Patient was being treated outside hospital and discharged 3 days prior to this admission for acute CHF and pneumonia. On 02/04 rapid response was called where she was noted to have fever hypoxia and dyspnea she is placed on antibiotics and on BiPAP at that time. At that time they were not admit the patient however the patient refused they then spoke with daughter Mayra Harmon who confirms patient signed DNR/DNI at [facility]. She was placed on Zosyn and vancomycin for her pneumonia. On 02/06 patient started to show signs of respiratory distress so the decision to intubate was made. They spoke with the daughter again who said that she felt patient should be intubated if this will help keep her comfortable for the next couple days and they think we can wean her off. Patient was then transferred to the ICU for further evaluation. Past Med Surg Social Fam HX - Past Medical History Medical history: atrial fibrillation, CHF, coronary artery disease, CVA, dialysis, hyperlipidemia, hypertension, renal disease, thyroid disease - Past Surgical History Surgical History: breast surgery, cholecystectomy, hysterectomy, orthopedic, other (right rotator cuff repair), other (nephrectomy) - Social History Smoking Status: Never smoker Smokeless Tobacco Status: No Alcohol use: unknown, rarely Drug use: none ROS unobtainable: due to endotracheal tube All Systems: The remainder of the systems were reviewed and are negative Physical Examination Vital Signs: Vital Signs, Last 4 Hours Temp Pulse Resp BP Pulse Ox 02/06/18 07:55 20 97 02/06/18 07:52 96.7 F L 02/06/18 06:17 24 100/48 97 02/06/18 06:00 125 24 100/48 95 02/06/18 05:00 87 21 94/49 100 General appearance: no acute distress, asleep Eyes: nonicteric ENT: oropharynx moist Neck: supple Effort: normal Inspection: normal Auscultation: bilateral: diminished breath sounds, rales Cardiovascular: irregular rhythm Gastrointestinal: normoactive bowel sounds, soft, non-tender, non-distended Integumentary: normal Extremities: no cyanosis, no edema, no clubbing Musculoskeletal: no deformities, ROM normal unable to assess due to mental status Ventilator Settings Ventilator Settings: Ventilator Settings, Last 8 Hours Ventilator Mode VC+ Ventilator Mode VC+ Ventilator Mode VC+ Ventilator Mode VC+ Ventilator Mode VC+ Ventilator Tidal Volume 550 Setting Ventilator Tidal Volume 420 Setting Ventilator Tidal Volume 420 Setting Ventilator Tidal Volume 420 Setting Ventilator Tidal Volume 420 Setting Ventilator Tidal Volume 420 Setting Ventilator Tidal Volume 420 Setting Ventilator Tidal Volume 420 Setting Ventilator Tidal Volume 420 Setting Ventilator Respiratory Rate 20 Setting Ventilator Respiratory Rate 20 Setting Ventilator Respiratory Rate 20 Setting Ventilator Respiratory Rate 20 Setting Ventilator Respiratory Rate 20 Setting Ventilator Respiratory Rate 20 Setting Ventilator Respiratory Rate 20 Setting Ventilator Respiratory Rate 20 Setting Ventilator Respiratory Rate 20 Setting Actual Respiratory Rate 20 Actual Respiratory Rate 25 Actual Respiratory Rate 22 Actual Respiratory Rate 21 Actual Respiratory Rate 22 Actual Respiratory Rate 25 Actual Respiratory Rate 22 Actual Respiratory Rate 20 Actual Respiratory Rate 25 Positive End Expiratory 5 Pressure Positive End Expiratory 5 Pressure Positive End Expiratory 5 Pressure Positive End Expiratory 5 Pressure Positive End Expiratory 5 Pressure Positive End Expiratory 5 Pressure Positive End Expiratory 5 Pressure Positive End Expiratory 5 Pressure Positive End Expiratory 5 Pressure Peak Inspiratory Airway 43 Pressure Peak Inspiratory Airway 32 Pressure Peak Inspiratory Airway 33 Pressure Peak Inspiratory Airway 34 Pressure Peak Inspiratory Airway 31 Pressure Peak Inspiratory Airway 31 Pressure Peak Inspiratory Airway 32 Pressure Peak Inspiratory Airway 33 Pressure Peak Inspiratory Airway 32 Pressure Results - Laboratory Findings CBC and BMP: 02/06/18 04:08 02/06/18 04:08 ABG ABG pH 7.38 pH Units (7.32-7.45) 02/05/18 21:29 ABG pCO2 59 mmHg (35-45) H 02/05/18 21:29 ABG pO2 84 mmHg (85-104) L 02/05/18 21: ABG O2 Saturation 96 % (95-98) 02/05/18 21:29 Abnormal lab findings: Abnormal lab results RBC 2.62 M/mcL (3.82-4.97) L 02/06/18 04:08 Hgb 7.2 g/dL (11.5-15.4) L 02/06/18 04:08 Hct 24.5 % (35.3-44.9) L 02/06/18 04:08 MCH 27.5 pg (28.0-33.3) L 02/06/18 04:08 MCHC 29.4 g/dL (31.6-35.5) L 02/06/18 04:08 RDW 19.2 % (11.5-14.5) H 02/06/18 04:08 Anisocytosis 1+ (Not Present) A 02/04/18 04:48 ABG pCO2 59 mmHg (35-45) H 02/05/18 21:29 ABG pO2 84 mmHg (85-104) L 02/05/18 21:29 ABG HCO3 35 mEq/L (21-27) H 02/05/18 21:29 ABG Total CO2 37 mEq/L (20-26) H 02/05/18 21:29 ABG Base Excess 9 mEq/L (-2 to 3) H 02/05/18 21:29 Chloride 95 mEq/L (98-107) L 02/06/18 04:08 BUN 38 mg/dL (8-23) H 02/06/18 04:08 Creatinine 4.40 mg/dL (0.60-1.20) H 02/06/18 04:08 Est GFR ( Amer) 12 (> 60) L 02/06/18 04:08 Est GFR (Non-Af Amer) 10 (> 60) L 02/06/18 04:08 Glucose 111 mg/dL (70-105) H 02/06/18 04:08 POC Glucose 125 mg/dL (70-99) H 02/06/18 00:06 Calcium 7.9 mg/dL (8.6-10.3) L 02/06/18 04:08 Total Bilirubin 1.1 mg/dL (0.3-1.0) H 02/04/18 13:17 Alkaline Phosphatase 109 Units/L (34-104) H 02/04/18 13:17 B-Natriuretic Peptide 1779 pg/mL (Less than 100) H 02/06/18 04:08 Serum Total Protein 5.7 g/dL (6.4-8.9) L 02/04/18 13:17 Albumin 2.8 g/dL (3.5-5.7) L 02/05/18 03:45 Albumin/Globulin Ratio 1.0 (1.1-2.2) L 02/04/18 13:17 - Microbiology Findings Microbiology Findings: Microbiology, Last 48 Hours 02/04/18 12:45 Legionella Antigen - Final Urine,Clean Catch Streptococcus pneumoniae Antigen (M - Final - Diagnostic Findings Chest x-ray: report reviewed - Clinical Findings Intake & Output: Intake & Output 02/05/18 02/06/18 02/06/18 23:59 07:59 15:59 Intake Total 287 / 287 100 / 100 Output Total 100 / 100 25 / 25 Balance 187 / 187 75 / 75 Weight 84.9 kg
[2018-02-06 09:35] LABS: Hepatitis B Surface Antibody 0.11 mIU/mL; Hepatitis B Surface Antigen Nonreactive (Nonreactive)
[2018-02-06 10:36] LABS: ABG Base Excess 6 mEq/L (-2 to 3); ABG HCO3 29 mEq/L (21-27); ABG Oxygen Saturation 93 % (95-98); ABG PCO2 37 mmHg (35-45); ABG PH 7.51 pH Units (7.32-7.45); ABG PO2 59 mmHg (85-104); ABG TCO2 31 mEq/L (20-26); Blood Gas Modality ASSIST CONTROL; Blood Gas Respiration Rate 2; Blood Gas VT 550 cc
[2018-02-06] MEDS ORDERED: *HR* Metoprolol 5 MG/5 ML VIAL IVP PRN (11:08)
--- NOTE | 2018-02-06 11:18 | Gastroenterology Consult Note ---
<David Hopson - Last Filed: 02/06/18 11:15> Date of Encounter: 02/06/18 Time of Encounter: 10:00 - Assessment and plan (1) GI bleed Current Visit: Yes Status: Acute Assessment and plan: Pt presented to the ED with 3 day history of BRBPR. No acute bleeding noted since 02/03. Plan for colonoscopy when patient is more stable. Continue to hold Pradaxa and ASA. Qualifiers: GI bleed type/associated pathology: anorectal hemorrhage Qualified Code(s) : K62.5 - Hemorrhage of anus and rectum (2) Anemia Current Visit: Yes Status: Acute Assessment and plan: Hgb 8.2 on admission and today Hgb 7.2. BRBPR noted on admission, but none since that time. Continue to monitor CBC and transfuse PRBC as needed. Qualifiers: Anemia type: unspecified type Qualified Code(s): D64.9 - Anemia, unspecified (3) Acute respiratory failure with hypoxia and hypercapnia Current Visit: Yes Status: Acute Assessment and plan: Pt intubated and sedated. Management per ICU team. (4) ESRD on hemodialysis Current Visit: Yes Status: Chronic Assessment and plan: Management per Nephrology. (5) HCAP (healthcare-associated pneumonia) Current Visit: Yes Status: Acute - Time Spent With Patient Total time spent is greater than 50% in coordination of care (as documented) at patient's floor/unit and/or counseling patient: GI History of Present Illness - Data of Consult Patient: new to practice Consult date: 02/06/18 Requesting Physician: Shanti Mondragon MD - Consult Narrative Reason for consult: BRBPR History of present illness: Ms. Clark is a 77 year old female with PMHx of Afib, CHF, CAD, CVA, ESRD, HLD , HTN who presented to the ED for 3 day history of rectal bleeding. She reports a similar episode several years ago. Her last colonoscopy was 3 years ago which showed benign polyps. She denied chest pain, abdominal pain, nausea, vomiting, or diarrhea. She was recently treated for acute CHF and pneumonia at an outside facility and was discharged 3 days prior to this admission. Pt became hypoxic and dyspneic and was started on Vancomycin and Zosyn, and placed on BiPAP. Pt continued to be tachypnic while on BiPAP and was intubated on 02/06. Information obtained from chart review as patient is intubated and sedated. Procedures: Colonoscopy 3 years ago which showed benign polyps. NSAIDs: ASA Anticoagulation: Pradaxa Past Med Surg Social Fam HX - Past Medical History Medical history: atrial fibrillation, CHF, coronary artery disease, CVA, dialysis, hyperlipidemia, hypertension, renal disease, thyroid disease - Past Surgical History Surgical History: breast surgery, cholecystectomy, hysterectomy, orthopedic, other (right rotator cuff repair), other (nephrectomy) - Social History Smoking Status: Never smoker Smokeless Tobacco Status: No Alcohol use: unknown, rarely Drug use: none ROS unobtainable: due to endotracheal tube - Constitutional Vitals: Temp Pulse Resp BP Pulse Ox 96.7 F L 131 21 111/62 96 02/06/18 08:00 02/06/18 08:00 02/06/18 10:14 02/06/18 08:00 02/06/18 10:14 Exam: Intubated and sedated. - Head Head exam: Present: atraumatic, normocephalic - Eye Eye exam: Present: normal appearance, sclera anicteric - ENT Additional comments: ET tube in place - Neck Neck exam general surgery: Present: normal inspection, trachea midline - Respiratory Additional comments: Mechanical breath sounds - Cardiovascular Cardiovascular exam: Present: RRR, +S1, +S2 - GI/Abdominal GI/Abdominal exam: Present: soft, no peritoneal signs. Absent: distended, firm , guarding - Rectal Rectal exam: Present: deferred - Extremities Exam Extremities exam: Present: warm - Neurological Exam Additional comments: Sedated - Psychiatric Additional comments: Sedated. - Skin Skin exam: Present: dry, intact, normal color, warm Results - Labs CBC & Chem 7: 02/06/18 04:08 02/06/18 04:08 Labs: Last Result Calcium 7.9 mg/dL (8.6-10.3) L 02/06/18 04:08 Entire Visit Hgb 7.2 g/dL (11.5-15.4) L 02/06/18 04:08 Hct 24.5 % (35.3-44.9) L 02/06/18 04:08 Total Bilirubin 1.1 mg/dL (0.3-1.0) H 02/04/18 13:17 AST 19 Units/L (13-39) 02/04/18 13:17 ALT 14 Units/L (7-52) 02/04/18 13:17 Ammonia 27 mcmol/L (16-53) 02/04/18 13:17 - ABG ABG results: ABG ABG pH 7.51 pH Units (7.32-7.45) H 02/06/18 10:30 ABG pCO2 37 mmHg (35-45) 02/06/18 10:30 ABG pO2 59 mmHg (85-104) L 02/06/18 10:30 ABG O2 Saturation 93 % (95-98) L 02/06/18 10:30 - Impressions Impressions Chest X-Ray 02/06/18 00:35 IMPRESSION: Appropriate endotracheal tube positioning. Proximal esophagogastric tube positioning. Recommend advancing 10 cm. No substantial change in bilateral airspace disease and effusions. D/ / Enrique Schrader / Enrique Schrader Interpreting Provider: Enrique Schrader Consult Discharge Plan - Plan Referrals: Tiffanie Dee [Primary Care Provider] - <Susu Ambrosio - Last Filed: 02/06/18 18:06> Date of Encounter: 02/06/18 Time of Encounter: 17:00 - Time Spent With Patient Total time spent is greater than 50% in coordination of care (as documented) at patient's floor/unit and/or counseling patient: GI History of Present Illness - Data of Consult Requesting Physician: Shanti Mondragon MD - Consult Narrative History of present illness: Ms. Clark is a 77 year old female - Constitutional Vitals: Temp Pulse Resp BP Pulse Ox 98.1 F 121 20 140/64 100 02/06/18 16:29 02/06/18 13:00 02/06/18 15:50 02/06/18 15:50 02/06/18 15:17 Results - Labs CBC & Chem 7: 02/06/18 04:08 02/06/18 04:08 Labs: Last Result Calcium 7.9 mg/dL (8.6-10.3) L 02/06/18 04:08 Entire Visit Hgb 7.2 g/dL (11.5-15.4) L 02/06/18 04:08 Hct 24.5 % (35.3-44.9) L 02/06/18 04:08 Total Bilirubin 1.1 mg/dL (0.3-1.0) H 02/04/18 13:17 AST 19 Units/L (13-39) 02/04/18 13:17 ALT 14 Units/L (7-52) 02/04/18 13:17 Ammonia 27 mcmol/L (16-53) 02/04/18 13:17 - ABG ABG results: ABG ABG pH 7.71 pH Units (7.32-7.45) H* D 02/06/18 12:27 ABG pCO2 25 mmHg (35-45) L 02/06/18 12:27 ABG pO2 119 mmHg (85-104) H D 02/06/18 12:27 ABG O2 Saturation 100 % (95-98) H 02/06/18 12:27 - Impressions Impressions Chest X-Ray 02/06/18 00:35 IMPRESSION: Appropriate endotracheal tube positioning. Proximal esophagogastric tube positioning. Recommend advancing 10 cm. No substantial change in bilateral airspace disease and effusions. D/ / Enrique Schrader / Enrique Schrader Interpreting Provider: Enrique Schrader - Attending Attestation I have personally performed a face to face evaluation on this patient. I have reviewed and agree with the care plan. History and Exam by me shows: Pt seen. Currently on Vent. Has an NG in place and abdomen is soft .Pt with anemia but no overt GI bleeding. Stool and NG output is abnormal in color. Recommendation: Follow H&H. There is no indication for urgent scopes at this point
[2018-02-06 12:34] LABS: ABG Base Excess 11 mEq/L (-2 to 3); ABG HCO3 31 mEq/L (21-27); ABG Oxygen Saturation 100 % (95-98); ABG PCO2 25 mmHg (35-45); ABG PH 7.71 pH Units (7.32-7.45); ABG PO2 119 mmHg (85-104); ABG TCO2 32 mEq/L (20-26); Blood Gas Modality VC; Blood Gas PEEP 5 cm H2O; Blood Gas Respiration Rate 14; Blood Gas VT 500 cc
--- NOTE | 2018-02-06 12:55 | Nephrology Progress Note ---
Date of Encounter: 02/06/18 Time of Encounter: 10:30 - Assessment and Plan (1) ESRD on hemodialysis Current Visit: Yes Status: Chronic HD today for M/W/F as tolerated by hemoynamics (she is in AF, which will limit UF). (2) Essential hypertension Current Visit: Yes Status: Chronic (3) Acute respiratory failure with hypoxia and hypercapnia Current Visit: Yes Status: Acute (4) HCAP (healthcare-associated pneumonia) Current Visit: Yes Status: Acute Subjective Principal diagnosis: ESRD Interval history: Pt was s/e while on HD. She was intubated and sedated, thus limiting the subjective history. Objective - Vital Signs Vital signs: Vital Signs Temp Pulse Resp BP Pulse Ox 02/06/18 11:31 22 99 02/06/18 11:00 126 18 129/45 99 02/06/18 10:14 21 96 02/06/18 10:00 129 19 129/45 67 02/06/18 09:00 134 18 131/61 95 02/06/18 08:00 96.7 F L 131 20 111/62 96 02/06/18 07:55 20 97 02/06/18 07:52 96.7 F L 02/06/18 07:00 123 20 88/47 90 02/06/18 06:17 24 100/48 97 02/06/18 06:00 125 24 100/48 95 02/06/18 05:00 87 21 94/49 100 02/06/18 04:00 98.1 F 75 22 100/52 100 02/06/18 03:39 27 106/50 95 02/06/18 03:00 73 22 89/50 96 02/06/18 02:00 74 20 96/42 100 02/06/18 01:30 99.4 F 90 41 104/54 90 02/06/18 00:35 30 118/39 96 02/06/18 00:05 45 94 02/06/18 00:00 99.4 F 90 40 104/54 90 02/05/18 23:00 98 38 111/66 96 02/05/18 22:30 90 45 110/47 92 02/05/18 22:03 43 92/43 99 02/05/18 22:00 130 37 93/81 96 02/05/18 21:00 122 44 92/53 97 02/05/18 20:38 49 113/77 94 02/05/18 20:35 100.6 F H 02/05/18 20:00 144 33 133/88 94 02/05/18 19:00 96 36 100/74 97 02/05/18 18:00 102 30 109/55 99 02/05/18 17:00 102 30 103/51 99 02/05/18 16:00 84 35 99/54 94 02/05/18 15:34 42 135/52 95 02/05/18 15:00 100.4 F H 154 45 144/70 87 02/05/18 14:00 128 34 135/75 93 02/05/18 13:00 102 28 135/52 99 Intake and Output 02/05/18 02/06/18 02/06/18 23:59 07:59 15:59 Intake Total 287 / 287 100 / 100 Output Total 100 / 100 25 / 25 0 / 0 Balance 187 / 187 75 / 75 0 / 0 Intake: IV Fluids 287 / 287 100 / 100 PRECEDEX Premix 400 mcg In 100 87 / 87 100 / 100 ml @ 0.2 MCG/KG/HR 4.08 mls/hr IVC .Q24H [facility] Rx#:[id number] Amiodarone Premix 150mg/100mL 100 / 100 150 mg In 100 ml @ 300 mls/hr IVPB ONCE ONE Rx#:[id number] Zosyn 3.375 GM In 0.9 % Sodium 100 / 100 Chloride (Mini-Bag +) 100 ML @ 25 mls/hr IVPB Q12H [facility] Rx#: [id number] Oral 0 / 0 0 / 0 Output: Rectal Tube 0 / 0 Catheter 100 / 100 25 / 25 0 / 0 Other: Stool Size Moderate Stool Consistency liquid Stool Color Brown Yellow # Bowel Movements 1 Weight 84.9 kg Blood Glucose* 125 Patient Weight 02/06/18 23:59 Weight 84.9 kg - General Appearance Exam: General appearance: appears started age, moderate distress, fatigue, frail, intubated. EENT: mucous membranes moist Neck: supple Respiratory: course breath sounds Cardiology: edema (trace ankle edema with wrinkles noted bilaterally), rapid rhythm and irregularly irregular, normal S1, normal S2 - Dialysis Access Dialysis Vascular Access: Arteriovenous Fistula (left upper arm AVF with excellent thrill and bruit) thrill: Yes bruit: Yes Gastrointestinal: normoactive bowel sounds, no tenderness, no guarding Integumentary: warm and dry, ecchymotic Neurologic: no asterixis, sedated on vent thus limiting neuro exam Musculoskeletal: no cyanosis, no clubbing - Lab 02/06/18 04:08 02/06/18 04:08 Most recent lab results ABG pH 7.71 pH Units (7.32-7.45) H* D 02/06/18 12:27 ABG pCO2 25 mmHg (35-45) L 02/06/18 12:27 ABG pO2 119 mmHg (85-104) H D 02/06/18 12:27 ABG HCO3 31 mEq/L (21-27) H 02/06/18 12:27 ABG O2 Saturation 100 % (95-98) H 02/06/18 12:27 Calcium 7.9 mg/dL (8.6-10.3) L 02/06/18 04:08 Phosphorus 3.8 mg/dL (2.7-4.5) 02/05/18 03:45 Magnesium 1.7 mg/dL (1.6-2.6) 02/06/18 04:08 - VTE Documentation of Mechanical Device: Intermittent pneumatic compression device Consult Discharge Plan - Plan Referrals: Tiffanie Dee [Primary Care Provider] -
--- NOTE | 2018-02-06 15:57 | Palliative - Consult Note ---
Date of Encounter: 02/06/18 Time of Encounter: 15:20 - Assessment and Plan (1) Generalized pain Current Visit: Yes Status: Acute Assessment and plan: Continue on Fentanyl per ICU protocol, currently at 25mcg/hr (2) Anxiety Current Visit: Yes Status: Acute Assessment and plan: Continues on IV Precedex per ICU protocol. Monitor (3) Counseling regarding advanced care planning and goals of care Current Visit: Yes Status: Acute Assessment and plan: Meeting with pt daughter Mayra Harmon ([phone]) and sister to discuss goals of care. Patient moved in recently with Mayra, they describe her medical condition as deteriorating since January and states she has been in and out of the hospital between [place] and [facility]. She had [facility] home [facility] prior to admission for physical therapy. Mayra thinks that her mother made her power of deputy county attorney, but has no paperwork, and not sure where her mother would have put this. Asked I contact [facility], which I called, and they stated the only form completed there was a DNR. Daughter and pt sister state that they think they patient did not fully understand, and that she did not to "live on a ventilator ", but they thought that she would want short term intubation. Discussed when/ if ready for extubation, and if she fails and does poorly, if they would want her re-intubated, and they stated "No, if she doesn't do well after treatment for pneumonia, we will keep her comfortable". We did briefly discuss hospice care - her sister recently had her enrolled in [facility]. Daughter concerned as she knows a few dialysis patients that only lived a few days after stopping. I did inform her that [facility] does sometimes permit continuation of dialysis, as long as the patient is tolerating, but that would be information their medical office secretary would have to review and approve. I did inform her that if they desired to speak with a liasion nurse from [facility], we could contact them for a visit. Daughter stated she wanted to wait a few days, and see how pt does. Will f/u tomorrow. (4) GI bleed Current Visit: Yes Status: Acute Qualifiers: GI bleed type/associated pathology: anorectal hemorrhage Qualified Code(s) : K62.5 - Hemorrhage of anus and rectum (5) ESRD on hemodialysis Current Visit: Yes Status: Chronic (6) Atrial fibrillation Current Visit: Yes Status: Chronic Qualifiers: Atrial fibrillation type: paroxysmal Qualified Code(s): I48.0 - Paroxysmal atrial fibrillation (7) HCAP (healthcare-associated pneumonia) Current Visit: Yes Status: Acute Palliative-CN HPI - Data of Consult Requesting Physician: Shanti Mondragon MD Primary Care Provider: Remed[facility] Provider Family Provider: [employer]Conversion Provider - Consult Narrative History of present illness: Ms. Clark is a 77 year old female with a history of ESRD on dialysis, HTN, atrial fibrillation who presented with 3 day history of rectal bleeding. She was also suspected to have pneumonia. After admission, she developed significant respiratory distress, that did not improve with bipap. Respiratory rate was in the 50's. Discussion was held with pt daughter, and although the pt had previously signed a DNR/DNI state form, the daughter decided to have her mother intubated for short term, while pneumonia was being treated. She currently is sedated in the ICU, ventilated and on IV atb/bronchodilators for treatment. Her Hgb is trending downward, GI has been consulted and she may have colonoscopy. Has not required blood products as of today. She receives her dialysis care from [facility], and her primary physician is Dr. Golden with the [facility]. Upon my visit, she is sedated and ventilated. Atrial fib on monitor with rate in 130's. Appears comfortable. No family present on my initial visit. She is to get dialysis today. CC: Shanti Mondragon MD Past Med Surg Social Fam HX - Past Medical History Medical history: atrial fibrillation, CHF, coronary artery disease, CVA, dialysis, hyperlipidemia, hypertension, renal disease, thyroid disease - Past Surgical History Surgical History: breast surgery, cholecystectomy, hysterectomy, orthopedic, other (right rotator cuff repair), other (nephrectomy) - Social History Smoking Status: Never smoker Smokeless Tobacco Status: No Alcohol use: unknown, rarely Drug use: none Medications and Allergies Aspirin [Lo-Dose Aspirin EC] 81 mg PO DAILY 02/03/18 [History] Atorvastatin [Lipitor] 40 mg PO HS 02/03/18 [History] Dabigatran Etexilate Mesylate [Pradaxa] 75 mg PO DAILY 02/03/18 [History] Furosemide [Lasix] 20 mg PO 3XW PRN 02/03/18 [History] Albuterol Sulfate [Proair Hfa] 1 puff IH Q4H PRN 02/04/18 [History] Dicyclomine [Bentyl] 20 mg PO TID 02/04/18 [History] Levothyroxine Sodium [Synthroid] 137 mcg PO DAILY@0630 02/04/18 [History] Metoprolol XL (24 HR) Succ [Toprol XL] 25 mg PO DAILY@1200 02/04/18 [History] Digoxin [Lanoxin] 0.125 mg PO Q48H 02/05/18 [History] Clopidogrel [Plavix] 75 mg PO DAILY 02/06/18 [History] Diltiazem HCl [Diltiazem 24Hr Cd] 180 mg PO QAM 02/06/18 [History] Isosorbide MONOnitrate (24 HR) [Imdur] 60 mg PO DAILY@1200 02/06/18 [History] 3 Allergy/AdvReac Type Severity Reaction Status Date / Time Penicillins AdvReac Unknown See Verified 02/03/18 23:30 Comments ROS unobtainable: due to endotracheal tube, due to mental status Palliative Care-Exam - Constitutional Vitals: Temp Pulse Resp BP Pulse Ox 99.2 F 121 16 136/70 100 02/06/18 12:05 02/06/18 13:00 02/06/18 15:17 02/06/18 15:20 02/06/18 15:17 General appearance: Present: mild distress - Head Head Exam: Present: normal inspection, normocephalic - Respiratory Additional comments: Occasional rhonchi noted over anterior lung abdalla - Cardiovascular Cardiovascular exam: Present: irregular rhythm, tachycardia - GI/Abdominal Exam GI/Abdominal exam: Present: normal bowel sounds, soft - Catheter Type: Urethral ([place]) - Extremities Exam Extremities exam: Present: normal capillary refill, normal inspection - Neurological Exam Additional comments: Sedated on ventilator - Skin Skin exam: Present: dry, warm Internal Medicine - CN: Reslt - Labs CBC & Chem 7: 02/06/18 04:08 02/06/18 04:08 Labs: Short CBC 02/06/18 Range/Units 04:08 WBC 9.9 (4.3-11.1) K/mcL Hgb 7.2 L (11.5-15.4) g/dL Hct 24.5 L (35.3-44.9) % Plt Count 181 (140-400) K/mcL Neutrophils # 7.7 (1.6-8.9) K/mcL BMP 02/06/18 04:08 Sodium 136 Potassium 4.7 Chloride 95 L Carbon Dioxide 28 BUN 38 H Creatinine 4.40 H Glucose 111 H Calcium 7.9 L - ABG Interpretation ABG results: ABG ABG pH 7.71 pH Units (7.32-7.45) H* D 02/06/18 12:27 ABG pCO2 25 mmHg (35-45) L 02/06/18 12:27 ABG pO2 119 mmHg (85-104) H D 02/06/18 12:27 ABG O2 Saturation 100 % (95-98) H 02/06/18 12:27 - Impressions Impressions Chest X-Ray 02/06/18 00:35 IMPRESSION: Appropriate endotracheal tube positioning. Proximal esophagogastric tube positioning. Recommend advancing 10 cm. No substantial change in bilateral airspace disease and effusions. D/ / Enrique Schrader / Enrique Schrader Interpreting Provider: Enrique Schrader Consult Discharge Plan - Plan Referrals: Tiffanie Dee [Primary Care Provider] - Palliative Quality Palliative Quality: Screen for Code Status: Yes, Screen for Goals of Care: Yes, Screen for Pain: Yes, If Pain Regimen Started, Initiate Bowel Regimen: NA, Screen for Nausea/Vomitting: Yes Code Status: 02/03/18 22:58 Resuscitation Status: Active [RES] Routine Comment: Resuscitation Status: [id number] Resuscitation Status: Active [RES] Routine Comment: Resuscitation Status: Full Code 02/05/18 16:25 CODE [Resuscitation Status: Active] [RES] Routine Comment: Resuscitation Status: DNR-Comfort Care-Arrest
--- NOTE | 2018-02-06 16:35 | Event Note ---
Date of Encounter: 02/06/18 Time of Encounter: 08:00 Pt condition got worsened last night, not able to tolerate BiPAP well, her Spo2 kept on dropping so my colleague Dr. Loomis had to intubate the pt. Now she is resting comfortably on vent. She is on fentanyl and precedex for sedation. Cont empirical abx Zosyn and Vancomycin. Nephrology on board , expecting possible HD today. Spoke to [employer] Dr. Hidalgo and transferred the care to their service.
[2018-02-06 18:12] LABS: ABG Base Excess 14 mEq/L (-2 to 3); ABG HCO3 39 mEq/L (21-27); ABG PCO2 53 mmHg (35-45); ABG PH 7.47 pH Units (7.32-7.45); ABG PO2 < 17 mmHg (85-104); ABG TCO2 41 mEq/L (20-26); Blood Gas Modality VC; Blood Gas PEEP 5 cm H2O; Blood Gas Respiration Rate 14; Blood Gas VT 550 cc
[2018-02-07] MEDS: Ipratropium/Albuterol Neb 3 ML IH SCH ×7 (00:10→23:40)
[2018-02-07] MEDS: FentaNYL (PF) 1,000 MCG in 0.9 % Sodium Chloride 80 ML IVC SCH ×3 (00:24→23:32)
[2018-02-07] MEDS: Lacri-Lube 3.5 GM TUBE BOTH EYES SCH ×7 (00:24→23:29)
[2018-02-07] MEDS: Dexmedetomidine HCl 400 MCG/100 ML MLS IVC SCH ×6 (00:27→23:27)
[2018-02-07] MEDS: Amiodarone Premix 360 MG/200 ML BAG IVC SCH ×2 (03:43→15:22)
[2018-02-07] MEDS: Piperacillin/Tazobactam 3.375 GM in 0.9 % Sodium Chloride Mini Bag 100 ML IVPB SCH ×2 (03:44→15:36)
[2018-02-07 04:23] LABS: Basophils # 0.1 K/mcL (0.0-0.2); Basophils % 0.8 %; Eosinophils # 0.3 K/mcL (0.0-0.6); Eosinophils % 4.2 %; Hematocrit 19.9 % (35.3-44.9); Immature Granulocytes % 0.7 % (0-4); Lymphocytes # 0.8 K/mcL (0.6-4.6); Lymphocytes % 10.2 %; Mean Corpuscular HGB Conc 30.2 g/dL (31.6-35.5); Mean Corpuscular Volume 89.6 fL (83.0-100.0); Mean Platelet Volume 11.3 fL (9.4-12.4); Monocytes # 0.3 K/mcL (0.0-1.3); Monocytes % 4.3 %; Neutrophils # 5.9 K/mcL (1.6-8.9); Platelet Count 190 K/mcL (140-400); Red Blood Count 2.22 M/mcL (3.82-4.97); Red Cell Distribution Width 19.4 % (11.5-14.5); Segmented Neutrophils % 79.8 %
[2018-02-07 04:27] LABS: VBG HCO3 36 mEq/L (21-27); VBG PCO2 44 mmHg (41-51); VBG PH 7.52 pH Units (7.32-7.42); VBG PO2 196 mmHg (25-50)
[2018-02-07 04:56] LABS: Calcium 7.7 mg/dL (8.6-10.3); Potassium 3.4 mEq/L (3.5-5.1)
--- NOTE | 2018-02-07 07:35 | Pulmonology Progress Note ---
<Derek Hidalgo M - Last Filed: 02/07/18 15:14> Date of Encounter: 02/07/18 Objective PUL Vital signs: Last Vital Signs Temp 99.9 F H 02/07/18 04:57 Pulse 110 02/07/18 06:00 Resp 16 02/07/18 06:00 BP 133/62 02/07/18 06:00 Pulse Ox 100 02/07/18 06:00 Ventilator Settings Ventilator Settings: Ventilator Settings, Last 8 Hours Ventilator Mode VC+ Ventilator Mode VC+ Ventilator Mode VC+ Ventilator Mode VC+ Ventilator Mode VC+ Ventilator Mode VC+ Ventilator Mode VC+ Ventilator Tidal Volume 550 Setting Ventilator Tidal Volume 550 Setting Ventilator Tidal Volume 550 Setting Ventilator Tidal Volume 550 Setting Ventilator Tidal Volume 550 Setting Ventilator Tidal Volume 550 Setting Ventilator Tidal Volume 550 Setting Ventilator Tidal Volume 550 Setting Ventilator Tidal Volume 550 Setting Ventilator Tidal Volume 550 Setting Ventilator Tidal Volume 550 Setting Ventilator Respiratory Rate 14 Setting Ventilator Respiratory Rate 14 Setting Ventilator Respiratory Rate 14 Setting Ventilator Respiratory Rate 14 Setting Ventilator Respiratory Rate 14 Setting Ventilator Respiratory Rate 14 Setting Ventilator Respiratory Rate 14 Setting Ventilator Respiratory Rate 14 Setting Ventilator Respiratory Rate 14 Setting Ventilator Respiratory Rate 14 Setting Ventilator Respiratory Rate 14 Setting Actual Respiratory Rate 16 Actual Respiratory Rate 14 Actual Respiratory Rate 14 Actual Respiratory Rate 14 Actual Respiratory Rate 14 Actual Respiratory Rate 14 Actual Respiratory Rate 14 Actual Respiratory Rate 14 Actual Respiratory Rate 14 Actual Respiratory Rate 14 Actual Respiratory Rate 14 Positive End Expiratory 5 Pressure Positive End Expiratory 5 Pressure Positive End Expiratory 5 Pressure Positive End Expiratory 5 Pressure Positive End Expiratory 5 Pressure Positive End Expiratory 5 Pressure Positive End Expiratory 5 Pressure Positive End Expiratory 5 Pressure Positive End Expiratory 5 Pressure Positive End Expiratory 5 Pressure Positive End Expiratory 5 Pressure Peak Inspiratory Airway 46 Pressure Peak Inspiratory Airway 46 Pressure Peak Inspiratory Airway 46 Pressure Peak Inspiratory Airway 42 Pressure Peak Inspiratory Airway 46 Pressure Peak Inspiratory Airway 36 Pressure Peak Inspiratory Airway 42 Pressure Peak Inspiratory Airway 42 Pressure Peak Inspiratory Airway 47 Pressure Peak Inspiratory Airway 43 Pressure Peak Inspiratory Airway 43 Pressure Results - Laboratory Findings CBC and BMP: 02/07/18 04:00 02/07/18 04:00 ABG ABG pH 7.47 pH Units (7.32-7.45) H D 02/06/18 13:51 ABG pCO2 53 mmHg (35-45) H D 02/06/18 13:51 ABG pO2 < 17 mmHg (85-104) L* D 02/06/18 13:51 ABG O2 Saturation TNP 02/06/18 13:51 Abnormal lab findings: Abnormal lab results RBC 2.22 M/mcL (3.82-4.97) L 02/07/18 04:00 Hgb 6.0 g/dL (11.5-15.4) L* 02/07/18 04:00 Hct 19.9 % (35.3-44.9) L 02/07/18 04:00 MCH 27.0 pg (28.0-33.3) L 02/07/18 04:00 MCHC 30.2 g/dL (31.6-35.5) L 02/07/18 04:00 RDW 19.4 % (11.5-14.5) H 02/07/18 04:00 Anisocytosis 1+ (Not Present) A 02/04/18 04:48 ABG pH 7.47 pH Units (7.32-7.45) H D 02/06/18 13:51 ABG pCO2 53 mmHg (35-45) H D 02/06/18 13:51 ABG pO2 < 17 mmHg (85-104) L* D 02/06/18 13:51 ABG HCO3 39 mEq/L (21-27) H 02/06/18 13:51 ABG Total CO2 41 mEq/L (20-26) H 02/06/18 13:51 ABG Base Excess 14 mEq/L (-2 to 3) H 02/06/18 13:51 VBG pH 7.52 pH Units (7.32-7.42) H 02/07/18 04:25 VBG pO2 196 mmHg (25-50) H 02/07/18 04:25 VBG HCO3 36 mEq/L (21-27) H 02/07/18 04:25 Potassium 3.4 mEq/L (3.5-5.1) L D 02/07/18 04:00 Carbon Dioxide 32 mEq/L (23-29) H 02/07/18 04:00 Creatinine 3.00 mg/dL (0.60-1.20) H 02/07/18 04:00 Est GFR ( Amer) 18 (> 60) L 02/07/18 04:00 Est GFR (Non-Af Amer) 15 (> 60) L 02/07/18 04:00 Glucose 143 mg/dL (70-105) H 02/07/18 04:00 POC Glucose 133 mg/dL (70-99) H 02/06/18 23:38 Calcium 7.7 mg/dL (8.6-10.3) L 02/07/18 04:00 Total Bilirubin 1.1 mg/dL (0.3-1.0) H 02/04/18 13:17 Alkaline Phosphatase 109 Units/L (34-104) H 02/04/18 13:17 B-Natriuretic Peptide 1779 pg/mL (Less than 100) H 02/06/18 04:08 Serum Total Protein 5.7 g/dL (6.4-8.9) L 02/04/18 13:17 Albumin 2.8 g/dL (3.5-5.7) L 02/05/18 03:45 Albumin/Globulin Ratio 1.0 (1.1-2.2) L 02/04/18 13:17 - Microbiology Findings Microbiology Findings: Microbiology, Last 48 Hours 02/04/18 13:17 Blood Culture - Preliminary Peripheral Venipuncture No growth. - Clinical Findings Intake & Output: Intake & Output 02/06/18 02/06/18 02/07/18 15:59 23:59 07:59 Intake Total 700 / 700 458 / 458 757 / 757 Output Total 1600 / 1600 0 / 0 0 / 0 Balance -900 / -900 458 / 458 757 / 757 Weight 83.9 kg Consult Discharge Plan - Plan Referrals: Tiffanie Dee [Primary Care Provider] - - Attending Attestation I examined this patient and my medical decision-making was reviewed with the Resident Physician. I agree with the documented findings, disposition and treatment plan as described except to the extent set forth below. Patient seen and examined. Labs, radiology, chart personally reviewed. Agree with resident's history and physical, assessment, plan with following comments: [employer]: Patient does not follows commands, Pulmonary: Acceptable oxygenation and ventilation however patient is not stable for extubation Cardiovascular: goal for rate control GI: Nutrition per dietary and GI prophylaxis per routine. GI is following Heme: DVT prophylaxis per routine blood transfusion ID: Continue antibiotics and plan to de-escalation Endorcine: blood glucose is monitored Lines: all lines checked and no evidence of infections Skin: skin care to prevent pressure ulcers per nursing routine care Overall poor prognosis and palliative is evaluating the patient <Brown,Joe - Last Filed: 02/07/18 17:43> Date of Encounter: 02/07/18 Time of Encounter: 13:49 Assessment and Plan (1) Acute respiratory failure with hypoxia and hypercapnia Current Visit: Yes Status: Acute Due to middle lower lobe pneumonia Review chest x-ray which shows no worsening progression of the pneumonia. Reviewed ABG which today shows pH 7.71 PCO2 25 bicarbonate 31 ventilator tidal volume and respiratory rate were changed accordingly. Patient is still intubated and on the ventilator. Patient is now only on Zosyn as vancomycin was stopped. Blood culture showed no growth Legionella panel negative. Respiratory viral panel negative, sputum cultures still pending. Strict I's and O's will continue follow-up chest x-rays will continue diuresis with Lasix 40 mg daily. Nephrology dialyzed yesterday said that she did not do well with it but they seemed to do her normal schedule does. They did say they can do ultrafiltration if needed to remove fluid but based on exam patient does not seem fluid overload at this time so will not do that. Patient will continue getting her Tuesday hemodialysis. Palliative care spoke with the patient family and they said they will keep the patient abated for a couple more days to see if she does improve we will have palliative care speak with family again today to see if they want to change her mind. (2) HCAP (healthcare-associated pneumonia) Current Visit: Yes Status: Acute Serial blood cultures came back negative sputum culture still pending Continue Zosyn. Toward the end of the day the patient did spike a fever so we did give Tylenol and continued on Zosyn also got blood cultures that we will continue to follow. (3) Sepsis Current Visit: Yes Status: Acute Patient did meet sepsis criteria when she was here as she was tachycardic to the fever and the ears known source of infection with the middle lower lobe pneumonia. She was placed on Zosyn and vancomycin broad-spectrum antibiotics. Blood cultures are came back negative sputum cultures are still pending. At this time we will de-escalate antibiotics to only Zosyn and stop the vancomycin. We will continue to monitor sepsis. Patient is not in septic shock at this time not needing pressors Patient did spike a fever but is not hypotensive at this time so there is no signs of septic shock. Patient is still septic. We will continue to monitor Qualifiers: Sepsis type: sepsis due to unspecified organism Qualified Code(s): A41.9 - Sepsis, unspecified organism (4) Atrial fibrillation Current Visit: Yes Status: Chronic Patient was in A. fib with RVR last night most likely due to being in respiratory distress. Amiodarone was started. Patient is still on amiodarone. Metoprolol 12.5 mg is given twice daily as well as Lopressor is ordered when necessary heart rate greater than 130. We are not anticoagulate the patient due to her being here for a GI bleed. Qualifiers: Atrial fibrillation type: paroxysmal Qualified Code(s): I48.0 - Paroxysmal atrial fibrillation (5) GI bleed Current Visit: Yes Status: Acute This is the patient's presenting illness. She did have bright red blood per rectum There is been no signs of bright red blood per rectum since being in the ICU. Hemoglobin stable at 7.2. Continue holding anticoagulation with Pradaxa for now. Continue to monitor hemoglobin closely. GI has consulted see their consult note recommendations as we will do colonoscopy when patient stabilizes they do not see any bleeding at this time. Patient did have a decrease in her hemoglobin which could be coming from her possible GI bleed. Although there is no blood per rectum based on exam. We did give one unit of packed red blood cells here and will repeat the CBC to see if more blood is needed. We will continue to monitor daily H&H to look for further anemia. Qualifiers: GI bleed type/associated pathology: anorectal hemorrhage Qualified Code(s) : K62.5 - Hemorrhage of anus and rectum (6) ESRD on hemodialysis Current Visit: Yes Status: Chronic No missed hemodialysis sessions she got hemodialysis yesterday. Nephrology did offer ultrafiltration if we need fluid to be removed this was done today where they removed 1 L of fluid through ultrafiltration. We will continue doing hemodialysis Tuesday. Continue to follow nephrology's recommendations for dialysis (7) Essential hypertension Current Visit: Yes Status: Chronic Will resume home meds (8) Hyperlipidemia Current Visit: Yes Status: Chronic Will resume home meds Qualifiers: Hyperlipidemia type: unspecified Qualified Code(s): E78.5 - Hyperlipidemia , unspecified (9) CAD (coronary artery disease) Current Visit: Yes Status: Chronic Will resume home meds Qualifiers: Coronary Disease-Associated Artery/Lesion type: platinum artery [place] vs. transplanted heart: platinum heart Associated angina: without angina Qualified Code(s): I25.10 - Atherosclerotic heart disease of platinum coronary artery without angina pectoris (10) Hypothyroidism Current Visit: Yes Status: Chronic We will resume home meds Qualifiers: Hypothyroidism type: unspecified Qualified Code(s): E03.9 - Hypothyroidism , unspecified Subjective Principal diagnosis: ESRD Interval history: Patient continued to be on the vent overnight she did fail a CPAP trial. Overnight she did have a decrease in her hemoglobin to 6.0 from 7.2 the day prior. One unit of packed blood cells were ordered by the night team physician. Those are still in round have not been given by the time I saw the patient. Otherwise there were no overnight events. Objective PUL Vital signs: Last Vital Signs Temp 99.9 F H 02/07/18 04:57 Pulse 110 02/07/18 06:00 Resp 16 02/07/18 06:00 BP 133/62 02/07/18 06:00 Pulse Ox 100 02/07/18 06:00 General appearance: no acute distress, other (Somnolent and still on the ventilator.) Eyes: nonicteric ENT: oropharynx moist Neck: supple Effort: normal Auscultation: bilateral: diminished breath sounds, wheezes, rhonchi Cardiovascular: irregular rhythm Gastrointestinal: normoactive bowel sounds, soft, non-tender, non-distended Integumentary: normal Extremities: no cyanosis, no edema, no clubbing, edema (Bilateral 1+ pitting edema in the legs.) Musculoskeletal: no deformities, ROM normal pupils equal and round, unable to assess due to mental status Ventilator Settings Ventilator Settings: Ventilator Settings, Last 8 Hours Ventilator Mode VC+ Ventilator Mode VC+ Ventilator Mode VC+ Ventilator Mode VC+ Ventilator Mode VC+ Ventilator Mode VC+ Ventilator Mode VC+ Ventilator Tidal Volume 550 Setting Ventilator Tidal Volume 550 Setting Ventilator Tidal Volume 550 Setting Ventilator Tidal Volume 550 Setting Ventilator Tidal Volume 550 Setting Ventilator Tidal Volume 550 Setting Ventilator Tidal Volume 550 Setting Ventilator Tidal Volume 550 Setting Ventilator Tidal Volume 550 Setting Ventilator Tidal Volume 550 Setting Ventilator Tidal Volume 550 Setting Ventilator Respiratory Rate 14 Setting Ventilator Respiratory Rate 14 Setting Ventilator Respiratory Rate 14 Setting Ventilator Respiratory Rate 14 Setting Ventilator Respiratory Rate 14 Setting Ventilator Respiratory Rate 14 Setting Ventilator Respiratory Rate 14 Setting Ventilator Respiratory Rate 14 Setting Ventilator Respiratory Rate 14 Setting Ventilator Respiratory Rate 14 Setting Ventilator Respiratory Rate 14 Setting Actual Respiratory Rate 16 Actual Respiratory Rate 14 Actual Respiratory Rate 14 Actual Respiratory Rate 14 Actual Respiratory Rate 14 Actual Respiratory Rate 14 Actual Respiratory Rate 14 Actual Respiratory Rate 14 Actual Respiratory Rate 14 Actual Respiratory Rate 14 Actual Respiratory Rate 14 Positive End Expiratory 5 Pressure Positive End Expiratory 5 Pressure Positive End Expiratory 5 Pressure Positive End Expiratory 5 Pressure Positive End Expiratory 5 Pressure Positive End Expiratory 5 Pressure Positive End Expiratory 5 Pressure Positive End Expiratory 5 Pressure Positive End Expiratory 5 Pressure Positive End Expiratory 5 Pressure Positive End Expiratory 5 Pressure Peak Inspiratory Airway 46 Pressure Peak Inspiratory Airway 46 Pressure Peak Inspiratory Airway 46 Pressure Peak Inspiratory Airway 42 Pressure Peak Inspiratory Airway 46 Pressure Peak Inspiratory Airway 36 Pressure Peak Inspiratory Airway 42 Pressure Peak Inspiratory Airway 42 Pressure Peak Inspiratory Airway 47 Pressure Peak Inspiratory Airway 43 Pressure Peak Inspiratory Airway 43 Pressure Results - Laboratory Findings CBC and BMP: 02/07/18 04:00 02/07/18 04:00 ABG ABG pH 7.47 pH Units (7.32-7.45) H D 02/06/18 13:51 ABG pCO2 53 mmHg (35-45) H D 02/06/18 13:51 ABG pO2 < 17 mmHg (85-104) L* D 02/06/18 13:51 ABG O2 Saturation TNP 02/06/18 13:51 Abnormal lab findings: Abnormal lab results RBC 2.22 M/mcL (3.82-4.97) L 02/07/18 04:00 Hgb 6.0 g/dL (11.5-15.4) L* 02/07/18 04:00 Hct 19.9 % (35.3-44.9) L 02/07/18 04:00 MCH 27.0 pg (28.0-33.3) L 02/07/18 04:00 MCHC 30.2 g/dL (31.6-35.5) L 02/07/18 04:00 RDW 19.4 % (11.5-14.5) H 02/07/18 04:00 Anisocytosis 1+ (Not Present) A 02/04/18 04:48 ABG pH 7.47 pH Units (7.32-7.45) H D 02/06/18 13:51 ABG pCO2 53 mmHg (35-45) H D 02/06/18 13:51 ABG pO2 < 17 mmHg (85-104) L* D 02/06/18 13:51 ABG HCO3 39 mEq/L (21-27) H 02/06/18 13:51 ABG Total CO2 41 mEq/L (20-26) H 02/06/18 13:51 ABG Base Excess 14 mEq/L (-2 to 3) H 02/06/18 13:51 VBG pH 7.52 pH Units (7.32-7.42) H 02/07/18 04:25 VBG pO2 196 mmHg (25-50) H 02/07/18 04:25 VBG HCO3 36 mEq/L (21-27) H 02/07/18 04:25 Potassium 3.4 mEq/L (3.5-5.1) L D 02/07/18 04:00 Carbon Dioxide 32 mEq/L (23-29) H 02/07/18 04:00 Creatinine 3.00 mg/dL (0.60-1.20) H 02/07/18 04:00 Est GFR ( Amer) 18 (> 60) L 02/07/18 04:00 Est GFR (Non-Af Amer) 15 (> 60) L 02/07/18 04:00 Glucose 143 mg/dL (70-105) H 02/07/18 04:00 POC Glucose 133 mg/dL (70-99) H 02/06/18 23:38 Calcium 7.7 mg/dL (8.6-10.3) L 02/07/18 04:00 Total Bilirubin 1.1 mg/dL (0.3-1.0) H 02/04/18 13:17 Alkaline Phosphatase 109 Units/L (34-104) H 02/04/18 13:17 B-Natriuretic Peptide 1779 pg/mL (Less than 100) H 02/06/18 04:08 Serum Total Protein 5.7 g/dL (6.4-8.9) L 02/04/18 13:17 Albumin 2.8 g/dL (3.5-5.7) L 02/05/18 03:45 Albumin/Globulin Ratio 1.0 (1.1-2.2) L 02/04/18 13:17 - Microbiology Findings Microbiology Findings: Microbiology, Last 48 Hours 02/04/18 13:17 Blood Culture - Preliminary Peripheral Venipuncture No growth. - Diagnostic Findings Chest x-ray: image reviewed - Clinical Findings Intake & Output: Intake & Output 02/06/18 02/06/18 02/07/18 15:59 23:59 07:59 Intake Total 700 / 700 458 / 458 757 / 757 Output Total 1600 / 1600 0 / 0 0 / 0 Balance -900 / -900 458 / 458 757 / 757 Weight 83.9 kg - VTE Documentation of Mechanical Device: Intermittent pneumatic compression device
--- NOTE | 2018-02-07 08:17 | Nephrology Progress Note ---
Date of Encounter: 02/07/18 Time of Encounter: 08:12 - Assessment and Plan (1) ESRD on hemodialysis Current Visit: Yes Status: Chronic Only 1600ml removed yesterday with HD; Afib limits UF Will attempt UF today Plan for HD tomorrow (2) Atrial fibrillation with RVR Current Visit: Yes Status: Acute per primary team limits fluid removal (3) Acute respiratory failure with hypoxia and hypercapnia Current Visit: Yes Status: Acute per pulmonary team (4) HCAP (healthcare-associated pneumonia) Current Visit: Yes Status: Acute per primary team Subjective Principal diagnosis: ESRD Interval history: Patient seen and examined in ICU. Currently intubated and sedated. Objective - Vital Signs Vital signs: Vital Signs Temp Pulse Resp BP Pulse Ox 02/07/18 06:00 110 16 133/62 100 02/07/18 05:49 14 135/68 96 02/07/18 05:00 105 14 136/74 96 02/07/18 04:57 99.9 F H 02/07/18 04:15 14 127/55 97 02/07/18 04:00 126 14 132/61 95 02/07/18 03:00 99 14 134/59 97 02/07/18 02:00 110 14 95/70 92 02/07/18 01:55 14 129/50 96 02/07/18 01:00 107 14 140/72 93 02/07/18 00:27 98.4 F 02/07/18 00:10 20 148/60 98 02/07/18 00:00 116 14 89/50 94 02/06/18 23:00 109 14 150/62 100 02/06/18 22:00 107 14 152/82 99 02/06/18 21:59 14 145/61 100 02/06/18 21:00 118 14 144/58 100 02/06/18 20:08 16 138/68 100 02/06/18 20:00 92 14 138/68 100 02/06/18 19:55 98 F 02/06/18 19:00 116 14 148/73 99 02/06/18 18:00 114 14 148/74 100 02/06/18 17:31 14 98 02/06/18 17:00 97 14 96/67 99 02/06/18 16:29 98.1 F 02/06/18 16:00 98.1 F 116 14 102/39 95 02/06/18 15:50 98.2 F 20 140/64 02/06/18 15:35 132/40 02/06/18 15:20 136/70 02/06/18 15:17 16 100 02/06/18 15:05 122/46 02/06/18 15:00 124 14 85/69 99 02/06/18 14:50 137/39 02/06/18 14:35 122/44 02/06/18 14:20 126/41 02/06/18 14:05 129/38 02/06/18 14:00 134 14 134/59 99 02/06/18 13:50 110/40 02/06/18 13:41 156 127/57 95 02/06/18 13:35 110/40 02/06/18 13:20 124/46 02/06/18 13:05 128/60 02/06/18 13:00 121 19 103/41 96 02/06/18 12:50 123/46 02/06/18 12:35 125/49 02/06/18 12:20 119/55 02/06/18 12:05 99.2 F 21 130/56 02/06/18 12:00 100.3 F H 113 17 110/40 96 02/06/18 11:31 22 99 02/06/18 11:00 100.3 F H 126 18 129/45 99 02/06/18 10:14 21 96 02/06/18 10:00 129 19 129/45 96 02/06/18 09:00 134 18 131/61 95 Intake and Output 02/06/18 02/07/18 02/07/18 23:59 07:59 15:59 Intake Total 458 / 458 757 / 757 Output Total 0 / 0 0 / 0 Balance 458 / 458 757 / 757 Intake: IV Fluids 400 / 400 540 / 540 Amiodarone Drip Premix 360mg/ 200 / 200 200 / 200 200mL 360 mg In 200 ml @ 0.5 MG /MIN 16.667 mls/hr IVC CONT [facility] Rx#:[id number] PRECEDEX Premix 400 mcg In 100 100 / 100 200 / 200 ml @ 0.2 MCG/KG/HR 4.08 mls/hr IVC .Q24H [facility] Rx#:[id number] FentaNYL (PF) 1,000 MCG In 0.9 140 / 140 % Sodium Chloride 80 ML @ 25 MCG/HR 2.5 mls/hr IVC CONT [facility] Rx#:[id number] Zosyn 3.375 GM In 0.9 % Sodium 100 / 100 Chloride (Mini-Bag +) 100 ML @ 25 mls/hr IVPB Q12H [facility] Rx#: [id number] Tube Feeding 58 / 58 217 / 217 Output: Rectal Tube 0 / 0 0 / 0 Catheter 0 / 0 0 / 0 Other: Weight 83.9 kg Blood Glucose* 127 137 Patient Weight 02/07/18 23:59 Weight 83.9 kg - General Appearance General appearance: Present: chronically ill, frail EENT: Present: ATNC Neck: Present: supple Respiratory: Present: wheezing, course breath sounds Cardiology: Present: edema, rapid rhythm, irregular rhythm Dialysis Vascular Access: Arteriovenous Fistula Additional Comments: intubated and sedated - Lab 02/07/18 04:00 02/07/18 04:00 Most recent lab results ABG pH 7.47 pH Units (7.32-7.45) H D 02/06/18 13:51 ABG pCO2 53 mmHg (35-45) H D 02/06/18 13:51 ABG pO2 < 17 mmHg (85-104) L* D 02/06/18 13:51 ABG HCO3 39 mEq/L (21-27) H 02/06/18 13:51 ABG O2 Saturation TNP 02/06/18 13:51 Calcium 7.7 mg/dL (8.6-10.3) L 02/07/18 04:00 Phosphorus 3.8 mg/dL (2.7-4.5) 02/05/18 03:45 Magnesium 1.7 mg/dL (1.6-2.6) 02/06/18 04:08 - VTE Documentation of Mechanical Device: Intermittent pneumatic compression device Consult Discharge Plan - Plan Referrals: Tiffanie Dee [Primary Care Provider] -
[2018-02-07] MEDS: Chlorhexidine Rinse 15 ML MOUTHWASH MM SCH ×2 (08:50→20:18)
[2018-02-07] MEDS: Pantoprazole 40 MG VIAL IVP SCH (08:50)
[2018-02-07] MEDS ORDERED: 0.9 % Sodium Chloride 250 ML IVC PRN (09:31)
[2018-02-07] MEDS ORDERED: Albumin 25% 25gram/100mL 25 GM/100 ML IV.SOLN IVPB ONE (09:34)
[2018-02-07] MEDS ORDERED: 0.9 % Sodium Chloride 1,000 ML PRIME SCH (09:45)
[2018-02-07] MEDS ORDERED: D5% in Water 1,000 ML IVC PRN (11:37)
[2018-02-07] MEDS ORDERED: Dextrose Gel 15 GM/37.5 ML TUBE PO PRN ×2 (11:37)
[2018-02-07] MEDS ORDERED: *HR* Dextrose 50 % in Water (Syg) 50 ML SYRINGE IVP PRN (11:37)
[2018-02-07] MEDS ORDERED: Insulin LISPRO 300 UNITS/3 ML VIAL SQ ONE (11:41)
[2018-02-07] MEDS: Insulin LISPRO 300 UNITS/3 ML VIAL SQ SCH ×4 (11:53→23:30)
[2018-02-07] MEDS: Acetaminophen 325 MG TABLET PO PRN (11:54)
[2018-02-07] MEDS ORDERED: 0.9 % Sodium Chloride 1,000 ML ONE (12:04)
[2018-02-07] MEDS ORDERED: 0.9 % Sodium Chloride 250 ML ONE (12:55)
[2018-02-07 19:06] LABS: Basophils # 0.1 K/mcL (0.0-0.2); Basophils % 0.6 %; Eosinophils # 0.2 K/mcL (0.0-0.6); Eosinophils % 1.8 %; Hematocrit 22.6 % (35.3-44.9); Hemoglobin 7.3 g/dL (11.5-15.4); Immature Granulocytes % 0.4 % (0-4); Lymphocytes # 0.9 K/mcL (0.6-4.6); Lymphocytes % 10.4 %; Mean Corpuscular HGB Conc 32.3 g/dL (31.6-35.5); Mean Corpuscular Hemoglobin 28.7 pg (28.0-33.3); Mean Platelet Volume 10.7 fL (9.4-12.4); Monocytes # 0.4 K/mcL (0.0-1.3); Monocytes % 5.1 %; Neutrophils # 6.8 K/mcL (1.6-8.9); Platelet Count 190 K/mcL (140-400); Red Blood Count 2.54 M/mcL (3.82-4.97); Red Cell Distribution Width 18.3 % (11.5-14.5); Segmented Neutrophils % 81.7 %
[2018-02-08] MEDS: Amiodarone Premix 360 MG/200 ML BAG IVC SCH (01:55)
[2018-02-08] MEDS: Ipratropium/Albuterol Neb 3 ML IH SCH ×5 (03:38→20:31)
[2018-02-08] MEDS: Dexmedetomidine HCl 400 MCG/100 ML MLS IVC SCH ×4 (03:43→19:55)
[2018-02-08] MEDS: Piperacillin/Tazobactam 3.375 GM in 0.9 % Sodium Chloride Mini Bag 100 ML IVPB SCH ×2 (03:45→15:09)
[2018-02-08] MEDS: Lacri-Lube 3.5 GM TUBE BOTH EYES SCH ×4 (03:46→16:45)
[2018-02-08] MEDS: Insulin LISPRO 300 UNITS/3 ML VIAL SQ SCH ×6 (03:46→23:53)
[2018-02-08 04:28] LABS: Basophils # 0.1 K/mcL (0.0-0.2); Basophils % 0.7 %; Eosinophils # 0.3 K/mcL (0.0-0.6); Eosinophils % 3.3 %; Hematocrit 21.6 % (35.3-44.9); Hemoglobin 6.9 g/dL (11.5-15.4); Immature Granulocytes % 0.4 % (0-4); Lymphocytes % 12.4 %; Mean Corpuscular HGB Conc 31.9 g/dL (31.6-35.5); Mean Corpuscular Hemoglobin 28.5 pg (28.0-33.3); Mean Corpuscular Volume 89.3 fL (83.0-100.0); Monocytes # 0.4 K/mcL (0.0-1.3); Monocytes % 4.8 %; Neutrophils # 6.3 K/mcL (1.6-8.9); Platelet Count 179 K/mcL (140-400); Red Blood Count 2.42 M/mcL (3.82-4.97); Red Cell Distribution Width 18.5 % (11.5-14.5); Segmented Neutrophils % 78.4 %
[2018-02-08 04:39] LABS: Calcium 7.3 mg/dL (8.6-10.3); Potassium 3.4 mEq/L (3.5-5.1)
[2018-02-08 05:01] LABS: ABG Base Excess 11 mEq/L (-2 to 3); ABG HCO3 33 mEq/L (21-27); ABG Oxygen Saturation 95 % (95-98); ABG PCO2 34 mmHg (35-45); ABG PO2 62 mmHg (85-104); ABG TCO2 34 mEq/L (20-26); Blood Gas Modality ASSIST CONTROL; Blood Gas PEEP 5 cm H2O; Blood Gas Respiration Rate 14; Blood Gas VT 550 cc
[2018-02-08 06:50] LABS: ABG Base Excess 9 mEq/L (-2 to 3); ABG HCO3 31 mEq/L (21-27); ABG Oxygen Saturation 95 % (95-98); ABG PCO2 30 mmHg (35-45); ABG PH 7.62 pH Units (7.32-7.45); ABG PO2 60 mmHg (85-104); ABG TCO2 32 mEq/L (20-26); Blood Gas Modality VC; Blood Gas PEEP 5 cm H2O; Blood Gas Respiration Rate 12; Blood Gas VT 500 cc
[2018-02-08] MEDS ORDERED: 0.9 % Sodium Chloride 2,000 ML ONE (07:38)
--- NOTE | 2018-02-08 07:46 | Pulmonology Progress Note ---
<RockyRandyfrancine M - Last Filed: 02/08/18 08:16> Date of Encounter: 02/08/18 Objective PUL Vital signs: Last Vital Signs Temp 100.0 F H 02/08/18 07:26 Pulse 78 02/08/18 06:00 Resp 16 02/08/18 06:00 BP 118/54 02/08/18 06:00 Pulse Ox 100 02/08/18 06:00 Ventilator Settings Ventilator Settings: Ventilator Settings, Last 8 Hours Ventilator Mode VC+ Ventilator Mode VC+ Ventilator Mode VC+ Ventilator Mode VC+ Ventilator Mode VC+ Ventilator Mode VC+ Ventilator Mode VC+ Ventilator Mode VC+ Ventilator Tidal Volume 500 Setting Ventilator Tidal Volume 500 Setting Ventilator Tidal Volume 500 Setting Ventilator Tidal Volume 550 Setting Ventilator Tidal Volume 550 Setting Ventilator Tidal Volume 550 Setting Ventilator Tidal Volume 550 Setting Ventilator Tidal Volume 550 Setting Ventilator Tidal Volume 550 Setting Ventilator Tidal Volume 550 Setting Ventilator Tidal Volume 550 Setting Ventilator Respiratory Rate 12 Setting Ventilator Respiratory Rate 12 Setting Ventilator Respiratory Rate 12 Setting Ventilator Respiratory Rate 14 Setting Ventilator Respiratory Rate 14 Setting Ventilator Respiratory Rate 14 Setting Ventilator Respiratory Rate 14 Setting Ventilator Respiratory Rate 14 Setting Ventilator Respiratory Rate 14 Setting Ventilator Respiratory Rate 14 Setting Ventilator Respiratory Rate 14 Setting Actual Respiratory Rate 16 Actual Respiratory Rate 13 Actual Respiratory Rate 14 Actual Respiratory Rate 14 Actual Respiratory Rate 15 Actual Respiratory Rate 21 Actual Respiratory Rate 14 Actual Respiratory Rate 14 Actual Respiratory Rate 14 Positive End Expiratory 5 Pressure Positive End Expiratory 5 Pressure Positive End Expiratory 5 Pressure Positive End Expiratory 5 Pressure Positive End Expiratory 5 Pressure Positive End Expiratory 5 Pressure Positive End Expiratory 5 Pressure Positive End Expiratory 5 Pressure Positive End Expiratory 5 Pressure Positive End Expiratory 5 Pressure Positive End Expiratory 5 Pressure Peak Inspiratory Airway 37 Pressure Peak Inspiratory Airway 34 Pressure Peak Inspiratory Airway 38 Pressure Peak Inspiratory Airway 40 Pressure Peak Inspiratory Airway 43 Pressure Peak Inspiratory Airway 41 Pressure Peak Inspiratory Airway 41 Pressure Peak Inspiratory Airway 38 Pressure Peak Inspiratory Airway 42 Pressure Results - Laboratory Findings CBC and BMP: 02/08/18 04:00 02/08/18 04:00 ABG ABG pH 7.62 pH Units (7.32-7.45) H* 02/08/18 06:43 ABG pCO2 30 mmHg (35-45) L 02/08/18 06:43 ABG pO2 60 mmHg (85-104) L 02/08/18 06:43 ABG O2 Saturation 95 % (95-98) 02/08/18 06:43 Abnormal lab findings: Abnormal lab results RBC 2.42 M/mcL (3.82-4.97) L 02/08/18 04:00 Hgb 6.9 g/dL (11.5-15.4) L 02/08/18 04:00 Hct 21.6 % (35.3-44.9) L 02/08/18 04:00 RDW 18.5 % (11.5-14.5) H 02/08/18 04:00 Anisocytosis 1+ (Not Present) A 02/04/18 04:48 ABG pH 7.62 pH Units (7.32-7.45) H* 02/08/18 06:43 ABG pCO2 30 mmHg (35-45) L 02/08/18 06:43 ABG pO2 60 mmHg (85-104) L 02/08/18 06:43 ABG HCO3 31 mEq/L (21-27) H 02/08/18 06:43 ABG Total CO2 32 mEq/L (20-26) H 02/08/18 06:43 ABG Base Excess 9 mEq/L (-2 to 3) H 02/08/18 06:43 VBG pH 7.52 pH Units (7.32-7.42) H 02/07/18 04:25 VBG pO2 196 mmHg (25-50) H 02/07/18 04:25 VBG HCO3 36 mEq/L (21-27) H 02/07/18 04:25 Potassium 3.4 mEq/L (3.5-5.1) L 02/08/18 04:00 BUN 32 mg/dL (8-23) H 02/08/18 04:00 Creatinine 3.56 mg/dL (0.60-1.20) H 02/08/18 04:00 Est GFR ( Amer) 15 (> 60) L 02/08/18 04:00 Est GFR (Non-Af Amer) 12 (> 60) L 02/08/18 04:00 Glucose 134 mg/dL (70-105) H 02/08/18 04:00 POC Glucose 147 mg/dL (70-99) H 02/07/18 23:24 Calcium 7.3 mg/dL (8.6-10.3) L 02/08/18 04:00 Total Bilirubin 1.1 mg/dL (0.3-1.0) H 02/04/18 13:17 Alkaline Phosphatase 109 Units/L (34-104) H 02/04/18 13:17 B-Natriuretic Peptide 1779 pg/mL (Less than 100) H 02/06/18 04:08 Serum Total Protein 5.7 g/dL (6.4-8.9) L 02/04/18 13:17 Albumin 2.8 g/dL (3.5-5.7) L 02/05/18 03:45 Albumin/Globulin Ratio 1.0 (1.1-2.2) L 02/04/18 13:17 Antibody Screen POSITIVE A 02/07/18 04:45 - Microbiology Findings Microbiology Findings: Microbiology, Last 48 Hours 02/04/18 13:17 Blood Culture - Preliminary Peripheral Venipuncture No growth. - Clinical Findings Intake & Output: Intake & Output 02/07/18 02/08/18 02/08/18 23:59 07:59 15:59 Intake Total 920 / 920 640 / 640 Output Total 0 / 0 50 / 50 Balance 920 / 920 590 / 590 Weight 85.1 kg Consult Discharge Plan - Plan Referrals: Tiffanie Dee [Primary Care Provider] - - Attending Attestation I examined this patient and my medical decision-making was reviewed with the Resident Physician. I agree with the documented findings, disposition and treatment plan as described except to the extent set forth below. Patient seen and examined. Labs, radiology, chart personally reviewed. Agree with resident's history and physical, assessment, plan with following comments: [employer]ATE[employer]: Patient follows commands, Pulmonary: Acceptable oxygenation and ventilation, however patient remain very weak and need have another discussion with the family since patient is expressing she does not want intubation. Made some changes on the vent and possible spontaneous breathing trial based on her ABG. Cardiovascular: Relatively stable GI: Nutrition per dietary and GI prophylaxis per routine. GI is following up Heme: DVT prophylaxis per routine. Hemoglobin is dropping and possible transfusion with dialysis. Renal; urine out put and renal funtion reviewed Endorcine: blood glucose is monitored Lines: all lines checked and no evidence of infections Skin: skin care to prevent pressure ulcers per nursing routine care <Joe Kemp - Last Filed: 02/08/18 11:46> Date of Encounter: 02/08/18 Time of Encounter: 11:35 Assessment and Plan (1) Acute respiratory failure with hypoxia and hypercapnia Current Visit: Yes Status: Acute Due to middle lower lobe pneumonia Review chest x-ray which shows no worsening progression of the pneumonia. Reviewed ABG which today shows pH 7.71 PCO2 25 bicarbonate 31 ventilator tidal volume and respiratory rate were changed accordingly. Patient is still intubated and on the ventilator. Patient is now only on Zosyn. Blood culture showed no growth Legionella panel negative. Respiratory viral panel negative, sputum cultures still pending. Strict I's and O's will continue follow-up chest x-rays will continue diuresis with Lasix 40 mg daily. Nephrology dialyzed today. They did say they can do ultrafiltration if needed to remove fluid but based on exam patient does not seem fluid overload at this time so will not do that. Patient will continue getting her Tuesday hemodialysis. ABG today did show an alkalosis. The night seem to change the vent settings to help with alkalosis repeat ABG again showed alkalosis at 7.57/34/55/31/93/9. This was likely is due to metabolic alkalosis. Nephrology by doing hemodialysis should take care of a lot of this alkalosis. We will await labs in the morning and continue to monitor this and have nephrology follow. Palliative care we will seek with family again today to see if they feel patient can be extubated and be under DNR CCA/DNI care now. We will await palliative after they talked to the family around 1500. (2) HCAP (healthcare-associated pneumonia) Current Visit: Yes Status: Acute Serial blood cultures came back negative sputum culture still pending Continue Zosyn. Patient is having low-grade fevers we do have Tylenol given when necessary in his current was Zosyn and cultures have gotten reordered and are still pending at this time. (3) Sepsis Current Visit: Yes Status: Acute Patient did meet sepsis criteria when she was here as she was tachycardic to the fever and the ears known source of infection with the middle lower lobe pneumonia. She was placed on Zosyn and vancomycin broad-spectrum antibiotics. Blood cultures are came back negative sputum cultures are still pending. At this time we will de-escalate antibiotics to only Zosyn and stop the vancomycin. We will continue to monitor sepsis. Patient is not in septic shock at this time not needing pressors Patient did spike a fever but is not hypotensive at this time so there is no signs of septic shock. Patient is still septic. We will continue to monitor Qualifiers: Qualified Code(s): A41.9 - Sepsis, unspecified organism (4) Atrial fibrillation Current Visit: Yes Status: Chronic Patient was in A. fib with RVR last night most likely due to being in respiratory distress. Amiodarone was started. Patient is still on amiodarone. Metoprolol 12.5 mg is given twice daily as well as Lopressor is ordered when necessary heart rate greater than 130. We are not anticoagulate the patient due to her being here for a GI bleed. After reviewing old records we found out the patient was never taking Pradaxa and has never been taking Pradaxa. The only anticoagulation she is on is aspirin and Plavix. These are still stopped at this time. Qualifiers: Qualified Code(s): I48.0 - Paroxysmal atrial fibrillation (5) GI bleed Current Visit: Yes Status: Acute This is the patient's presenting illness. She did have bright red blood per rectum There is been no signs of bright red blood per rectum since being in the ICU. Hemoglobin stable at 7.2. Continue holding anticoagulation Continue to monitor hemoglobin closely. GI has consulted see their consult note recommendations as we will do colonoscopy when patient stabilizes they do not see any bleeding at this time. Patient did have a decrease in her hemoglobin which could be coming from her possible GI bleed. Although there is no blood per rectum based on exam. We again gave 1 unit of packed red blood cells and will repeat a CBC later today. We will continue to monitor this as blood may be needed. Blood was given during hemodialysis today We will continue to monitor daily H&H to look for further anemia. Qualifiers: Qualified Code(s): K62.5 - Hemorrhage of anus and rectum (6) ESRD on hemodialysis Current Visit: Yes Status: Chronic No missed hemodialysis sessions she got hemodialysis yesterday. We will continue doing hemodialysis Tuesday. Continue to follow nephrology's recommendations for dialysis (7) Essential hypertension Current Visit: Yes Status: Chronic Will resume home meds (8) Hyperlipidemia Current Visit: Yes Status: Chronic Will resume home meds Qualifiers: Qualified Code(s): E78.5 - Hyperlipidemia, unspecified (9) CAD (coronary artery disease) Current Visit: Yes Status: Chronic Will resume home meds Qualifiers: Qualified Code(s): I25.10 - Atherosclerotic heart disease of [place] coronary artery without angina pectoris (10) Hypothyroidism Current Visit: Yes Status: Chronic We will resume home meds Qualifiers: Qualified Code(s): E03.9 - Hypothyroidism, unspecified Subjective Principal diagnosis: ESRD Interval history: Patient continued to be on the vent overnight she did fail a CPAP trial. Overnight she did have a decrease in her hemoglobin to 6.9 from the day prior when she did get 1 unit of packed red blood cells. Otherwise there were no overnight events. Patient is still on the vent and intubated. Objective PUL Vital signs: Last Vital Signs Temp 100.0 F H 02/08/18 07:26 Pulse 78 02/08/18 06:00 Resp 16 02/08/18 06:00 BP 118/54 02/08/18 06:00 Pulse Ox 100 02/08/18 06:00 General appearance: no acute distress, other (Somnolent and ventilated.) Eyes: nonicteric ENT: oropharynx moist Neck: supple Effort: normal Auscultation: bilateral: diminished breath sounds, wheezes, rhonchi Cardiovascular: irregular rhythm Gastrointestinal: normoactive bowel sounds, soft, non-tender, non-distended Integumentary: normal Extremities: no cyanosis, no clubbing, edema (1+ pitting edema bilaterally) Musculoskeletal: no deformities, ROM normal unable to assess due to mental status Ventilator Settings Ventilator Settings: Ventilator Settings, Last 8 Hours Ventilator Mode VC+ Ventilator Mode VC+ Ventilator Mode VC+ Ventilator Mode VC+ Ventilator Mode VC+ Ventilator Mode VC+ Ventilator Mode VC+ Ventilator Mode VC+ Ventilator Mode VC+ Ventilator Tidal Volume 500 Setting Ventilator Tidal Volume 500 Setting Ventilator Tidal Volume 500 Setting Ventilator Tidal Volume 550 Setting Ventilator Tidal Volume 550 Setting Ventilator Tidal Volume 550 Setting Ventilator Tidal Volume 550 Setting Ventilator Tidal Volume 550 Setting Ventilator Tidal Volume 550 Setting Ventilator Tidal Volume 550 Setting Ventilator Tidal Volume 550 Setting Ventilator Tidal Volume 550 Setting Ventilator Respiratory Rate 12 Setting Ventilator Respiratory Rate 12 Setting Ventilator Respiratory Rate 12 Setting Ventilator Respiratory Rate 14 Setting Ventilator Respiratory Rate 14 Setting Ventilator Respiratory Rate 14 Setting Ventilator Respiratory Rate 14 Setting Ventilator Respiratory Rate 14 Setting Ventilator Respiratory Rate 14 Setting Ventilator Respiratory Rate 14 Setting Ventilator Respiratory Rate 14 Setting Ventilator Respiratory Rate 14 Setting Actual Respiratory Rate 16 Actual Respiratory Rate 13 Actual Respiratory Rate 14 Actual Respiratory Rate 14 Actual Respiratory Rate 15 Actual Respiratory Rate 21 Actual Respiratory Rate 14 Actual Respiratory Rate 14 Actual Respiratory Rate 14 Actual Respiratory Rate 14 Positive End Expiratory 5 Pressure Positive End Expiratory 5 Pressure Positive End Expiratory 5 Pressure Positive End Expiratory 5 Pressure Positive End Expiratory 5 Pressure Positive End Expiratory 5 Pressure Positive End Expiratory 5 Pressure Positive End Expiratory 5 Pressure Positive End Expiratory 5 Pressure Positive End Expiratory 5 Pressure Positive End Expiratory 5 Pressure Positive End Expiratory 5 Pressure Peak Inspiratory Airway 37 Pressure Peak Inspiratory Airway 34 Pressure Peak Inspiratory Airway 38 Pressure Peak Inspiratory Airway 40 Pressure Peak Inspiratory Airway 43 Pressure Peak Inspiratory Airway 41 Pressure Peak Inspiratory Airway 41 Pressure Peak Inspiratory Airway 38 Pressure Peak Inspiratory Airway 42 Pressure Peak Inspiratory Airway 47 Pressure Results - Laboratory Findings CBC and BMP: 02/08/18 04:00 02/08/18 04:00 ABG ABG pH 7.62 pH Units (7.32-7.45) H* 02/08/18 06:43 ABG pCO2 30 mmHg (35-45) L 02/08/18 06:43 ABG pO2 60 mmHg (85-104) L 02/08/18 06:43 ABG O2 Saturation 95 % (95-98) 02/08/18 06:43 Abnormal lab findings: Abnormal lab results RBC 2.42 M/mcL (3.82-4.97) L 02/08/18 04:00 Hgb 6.9 g/dL (11.5-15.4) L 02/08/18 04:00 Hct 21.6 % (35.3-44.9) L 02/08/18 04:00 RDW 18.5 % (11.5-14.5) H 02/08/18 04:00 Anisocytosis 1+ (Not Present) A 02/04/18 04:48 ABG pH 7.62 pH Units (7.32-7.45) H* 02/08/18 06:43 ABG pCO2 30 mmHg (35-45) L 02/08/18 06:43 ABG pO2 60 mmHg (85-104) L 02/08/18 06:43 ABG HCO3 31 mEq/L (21-27) H 02/08/18 06:43 ABG Total CO2 32 mEq/L (20-26) H 02/08/18 06:43 ABG Base Excess 9 mEq/L (-2 to 3) H 02/08/18 06:43 VBG pH 7.52 pH Units (7.32-7.42) H 02/07/18 04:25 VBG pO2 196 mmHg (25-50) H 02/07/18 04:25 VBG HCO3 36 mEq/L (21-27) H 02/07/18 04:25 Potassium 3.4 mEq/L (3.5-5.1) L 02/08/18 04:00 BUN 32 mg/dL (8-23) H 02/08/18 04:00 Creatinine 3.56 mg/dL (0.60-1.20) H 02/08/18 04:00 Est GFR ( Amer) 15 (> 60) L 02/08/18 04:00 Est GFR (Non-Af Amer) 12 (> 60) L 02/08/18 04:00 Glucose 134 mg/dL (70-105) H 02/08/18 04:00 POC Glucose 147 mg/dL (70-99) H 02/07/18 23:24 Calcium 7.3 mg/dL (8.6-10.3) L 02/08/18 04:00 Total Bilirubin 1.1 mg/dL (0.3-1.0) H 02/04/18 13:17 Alkaline Phosphatase 109 Units/L (34-104) H 02/04/18 13:17 B-Natriuretic Peptide 1779 pg/mL (Less than 100) H 02/06/18 04:08 Serum Total Protein 5.7 g/dL (6.4-8.9) L 02/04/18 13:17 Albumin 2.8 g/dL (3.5-5.7) L 02/05/18 03:45 Albumin/Globulin Ratio 1.0 (1.1-2.2) L 02/04/18 13:17 Antibody Screen POSITIVE A 02/07/18 04:45 - Microbiology Findings Microbiology Findings: Microbiology, Last 48 Hours 02/04/18 13:17 Blood Culture - Preliminary Peripheral Venipuncture No growth. - Diagnostic Findings Chest x-ray: report reviewed, image reviewed - Clinical Findings Intake & Output: Intake & Output 02/07/18 02/07/18 02/08/18 15:59 23:59 07:59 Intake Total 1307 / 1307 920 / 920 640 / 640 Output Total 1650 / 1650 0 / 0 50 / 50 Balance -343 / -343 920 / 920 590 / 590 Weight 85.1 kg - VTE Documentation of Mechanical Device: Intermittent pneumatic compression device
--- NOTE | 2018-02-08 07:54 | Nephrology Progress Note ---
Date of Encounter: 02/08/18 Time of Encounter: 10:00 - Assessment and Plan (1) ESRD on hemodialysis Status: Chronic Dialyssi note: UF yesterday and today (Tuesday) she is due for HD for clearance and more UF as tolerated. Pt was seen and examined while receiving HD in the ICU, with stable VSS though in AF but without RVR. . (2) Essential hypertension Status: Chronic (3) Acute respiratory failure with hypoxia and hypercapnia Status: Acute (4) HCAP (healthcare-associated pneumonia) Status: Acute Subjective Principal diagnosis: ESRD Interval history: Pt was s/e while on HD. She remains intubated thus limiting the subjective history. Palliative care is following the pt. Objective - Vital Signs Vital signs: Vital Signs Temp Pulse Resp BP Pulse Ox 02/08/18 07:26 100.0 F H 02/08/18 06:00 78 16 118/54 100 02/08/18 05:39 13 121/58 97 02/08/18 05:00 95 14 108/54 100 02/08/18 04:00 99.4 F 118 14 139/53 100 02/08/18 03:38 15 129/73 100 02/08/18 03:00 98 21 122/55 100 02/08/18 02:00 95 14 125/67 100 02/08/18 01:00 91 14 126/75 100 02/08/18 00:00 99.6 F 105 14 130/53 100 02/07/18 23:40 19 144/60 100 02/07/18 23:00 96 14 136/66 98 02/07/18 22:00 98 14 129/59 100 02/07/18 21:47 14 129/59 100 02/07/18 21:00 112 14 124/72 100 02/07/18 20:06 100.7 F H 02/07/18 20:03 19 163/77 98 02/07/18 20:00 113 16 149/91 93 02/07/18 19:00 119 14 145/64 100 02/07/18 18:00 92 14 154/71 97 02/07/18 17:00 105 14 163/69 99 02/07/18 16:36 99.7 F H 89 14 134/83 40 02/07/18 16:00 99.8 F H 90 14 134/83 100 02/07/18 15:59 14 121/64 100 02/07/18 15:20 99.8 F H 21 124/62 02/07/18 15:05 107/54 02/07/18 15:00 80 14 115/51 100 02/07/18 14:50 96/62 02/07/18 14:35 107/67 02/07/18 14:20 109/54 02/07/18 14:05 105/58 02/07/18 14:00 89 14 103/54 98 02/07/18 13:50 97/46 02/07/18 13:35 93/44 02/07/18 13:20 109/45 02/07/18 13:17 100.5 F H 86 14 115/51 98 02/07/18 13:15 14 104/64 100 02/07/18 13:05 100.6 F H 14 104/64 02/07/18 13:02 100.6 F H 104 14 124/56 98 02/07/18 13:00 100.6 F H 97 14 124/56 96 02/07/18 12:00 102.0 F H 111 14 113/91 97 02/07/18 11:36 30 125/61 95 02/07/18 11:00 102.0 F H 98 14 126/73 98 02/07/18 10:00 98 14 148/88 95 02/07/18 09:15 14 97/63 97 02/07/18 09:00 123 14 97/63 99 02/07/18 08:00 99.9 F H 137 14 150/78 99 Intake and Output 02/07/18 02/07/18 02/08/18 15:59 23:59 07:59 Intake Total 1307 / 1307 920 / 920 640 / 640 Output Total 1650 / 1650 0 / 0 50 / 50 Balance -343 / -343 920 / 920 590 / 590 Intake: IV Fluids 400 / 400 360 / 360 300 / 300 Amiodarone Drip Premix 360mg/ 200 / 200 200 / 200 200mL 360 mg In 200 ml @ 0.5 MG /MIN 16.667 mls/hr IVC CONT ALISA Rx#:[id number] PRECEDEX Premix 400 mcg In 100 200 / 200 200 / 200 100 / 100 ml @ 0.2 MCG/KG/HR 4.08 mls/hr IVC .Q24H ALISA Rx#:[id number] FentaNYL (PF) 1,000 MCG In 0.9 60 / 60 % Sodium Chloride 80 ML @ 25 MCG/HR 2.5 mls/hr IVC CONT ALISA Rx#:[id number] Zosyn 3.375 GM In 0.9 % Sodium 100 / 100 Chloride (Mini-Bag +) 100 ML @ 25 mls/hr IVPB Q12H ALISA Rx#: [id number] Oral 0 / 0 Tube Feeding 307 / 307 210 / 210 340 / 340 Blood Product 0 / 0 350 / 350 Rbcs Leuko Poor As-1 Unit 0 / 0 350 / 350 [id number] Intake, Rinseback and Flushes 600 / 600 Output: Urine 0 / 0 Total Dialysis (HD) Output 1600 / 1600 Rectal Tube 0 / 0 Catheter 50 / 50 0 / 0 50 / 50 Other: Stool Size Moderate Stool Consistency liquid Stool Color Brown Yellow # Bowel Movements 1 Weight 85.1 kg Blood Glucose* 198 162 132 Hemodialysis Net Fluid Removed 1000 (mL) Patient Weight 02/08/18 23:59 Weight 85.1 kg - General Appearance General appearance: Present: appears started age, sedated on ventilator, intubated, fatigue, frail EENT: Present: mucous membranes moist Neck: Present: supple Respiratory: Present: course breath sounds Cardiology: Present: edema (improving b/l LE edema), irregular rhythm, normal S1 , normal S2 Dialysis Vascular Access: Arteriovenous Fistula thrill: Yes bruit: Yes Gastrointestinal: Present: normoactive bowel sounds, no tenderness, no guarding Integumentary: Present: warm and dry Neurologic: Present: no focal deficit Musculoskeletal: Present: no cyanosis, no clubbing - Lab 02/10/18 06:16 02/10/18 06:16 Most recent lab results ABG pH 7.62 pH Units (7.32-7.45) H* 02/08/18 06:43 ABG pCO2 30 mmHg (35-45) L 02/08/18 06:43 ABG pO2 60 mmHg (85-104) L 02/08/18 06:43 ABG HCO3 31 mEq/L (21-27) H 02/08/18 06:43 ABG O2 Saturation 95 % (95-98) 02/08/18 06:43 Calcium 7.3 mg/dL (8.6-10.3) L 02/08/18 04:00 Phosphorus 3.8 mg/dL (2.7-4.5) 02/05/18 03:45 Magnesium 1.7 mg/dL (1.6-2.6) 02/06/18 04:08 - VTE Documentation of Mechanical Device: Intermittent pneumatic compression device Consult Discharge Plan - Plan Additional Instructions: Follow up with hospice physician as directed. Referrals: Tiffanie Dee [Primary Care Provider] - Prescriptions: LORazepam Oral Conc [Ativan Oral Conc] 1 mg PO Q3H PRN 7 Days #30 mls PRN Reason: Anxiety OXYCODONE Oral CONC [Oxycodone Oral Conc] 10 mg PO Q2H PRN 7 Days #30 oral.syg PRN Reason: pain/dyspnea Scopolamine Patch [Transderm-Scop] 1.5 mg TD Q72H PRN #5 patch.td72 PRN Reason: oral secretions
[2018-02-08] MEDS ORDERED: 0.9 % Sodium Chloride 250 ML IVC PRN (08:01)
[2018-02-08] MEDS ORDERED: 0.9 % Sodium Chloride 1,000 ML PRIME SCH (08:15)
[2018-02-08 09:01] LABS: ABG Base Excess 9 mEq/L (-2 to 3); ABG HCO3 31 mEq/L (21-27); ABG Oxygen Saturation 93 % (95-98); ABG PCO2 34 mmHg (35-45); ABG PH 7.57 pH Units (7.32-7.45); ABG PO2 55 mmHg (85-104); ABG TCO2 32 mEq/L (20-26); Blood Gas Modality VC; Blood Gas PEEP 5 cm H2O; Blood Gas Respiration Rate 12; Blood Gas VT 500 cc
[2018-02-08] MEDS: Chlorhexidine Rinse 15 ML MOUTHWASH MM SCH (09:16)
[2018-02-08] MEDS: Pantoprazole 40 MG VIAL IVP SCH (09:16)
[2018-02-08] MEDS ORDERED: 0.9 % Sodium Chloride 250 ML ONE (09:47)
--- NOTE | 2018-02-08 11:33 | Palliative Progress Note ---
Date of Encounter: 02/08/18 Time of Encounter: 11:30 - Assessment and plan (1) Generalized pain Current Visit: Yes Status: Acute Assessment and plan: Remains on IV Fentanyl per ICU protocol. (2) Anxiety Current Visit: Yes Status: Acute Assessment and plan: Remains on Precedex per ICU protocol. (3) Counseling regarding advanced care planning and goals of care Current Visit: Yes Status: Acute Assessment and plan: Patient's daughter did not visit yesterday. Spoke with her this am by phone and she will be coming later this afternoon. Updated on clinical status known thus far today. Will f/u this afternoon. (4) GI bleed Current Visit: Yes Status: Acute Assessment and plan: Blood thinners on hold. Gastroenterology following. Qualifiers: GI bleed type/associated pathology: anorectal hemorrhage Qualified Code(s) : K62.5 - Hemorrhage of anus and rectum (5) ESRD on hemodialysis Current Visit: Yes Status: Chronic Assessment and plan: Nephrology following. (6) Atrial fibrillation Current Visit: Yes Status: Chronic Assessment and plan: Rate controlled at present. Qualifiers: Atrial fibrillation type: paroxysmal Qualified Code(s): I48.0 - Paroxysmal atrial fibrillation (7) HCAP (healthcare-associated pneumonia) Current Visit: Yes Status: Acute - Time Spent With Patient Total time spent is greater than 50% in coordination of care (as documented) at patient's floor/unit and/or counseling patient: - Subjective Interval history: Patient awake on vent - currently being dialyzed. Hgb back down to 6.9 after 2 transfusions yesterday. Alkalotic this am - vent changes being made. She is able to follow simple commands. Appears anxious. - Constitutional Vitals: Abnormal lab results RBC 2.42 M/mcL (3.82-4.97) L 02/08/18 04:00 Hgb 6.9 g/dL (11.5-15.4) L 02/08/18 04:00 Hct 21.6 % (35.3-44.9) L 02/08/18 04:00 RDW 18.5 % (11.5-14.5) H 02/08/18 04:00 Anisocytosis 1+ (Not Present) A 02/04/18 04:48 ABG pH 7.57 pH Units (7.32-7.45) H 02/08/18 08:58 ABG pCO2 34 mmHg (35-45) L 02/08/18 08:58 ABG pO2 55 mmHg (85-104) L 02/08/18 08:58 ABG HCO3 31 mEq/L (21-27) H 02/08/18 08:58 ABG Total CO2 32 mEq/L (20-26) H 02/08/18 08:58 ABG O2 Saturation 93 % (95-98) L 02/08/18 08:58 ABG Base Excess 9 mEq/L (-2 to 3) H 02/08/18 08:58 VBG pH 7.52 pH Units (7.32-7.42) H 02/07/18 04:25 VBG pO2 196 mmHg (25-50) H 02/07/18 04:25 VBG HCO3 36 mEq/L (21-27) H 02/07/18 04:25 Potassium 3.4 mEq/L (3.5-5.1) L 02/08/18 04:00 BUN 32 mg/dL (8-23) H 02/08/18 04:00 Creatinine 3.56 mg/dL (0.60-1.20) H 02/08/18 04:00 Est GFR ( Amer) 15 (> 60) L 02/08/18 04:00 Est GFR (Non-Af Amer) 12 (> 60) L 02/08/18 04:00 Glucose 134 mg/dL (70-105) H 02/08/18 04:00 POC Glucose 147 mg/dL (70-99) H 02/07/18 23:24 Calcium 7.3 mg/dL (8.6-10.3) L 02/08/18 04:00 Total Bilirubin 1.1 mg/dL (0.3-1.0) H 02/04/18 13:17 Alkaline Phosphatase 109 Units/L (34-104) H 02/04/18 13:17 B-Natriuretic Peptide 1779 pg/mL (Less than 100) H 02/06/18 04:08 Serum Total Protein 5.7 g/dL (6.4-8.9) L 02/04/18 13:17 Albumin 2.8 g/dL (3.5-5.7) L 02/05/18 03:45 Albumin/Globulin Ratio 1.0 (1.1-2.2) L 02/04/18 13:17 Antibody Screen POSITIVE A 02/07/18 04:45 General appearance: Present: mild distress - Respiratory Additional comments: Rhonchi noted anterior chest. Remains on vent. - Cardiovascular Cardiovascular exam: Present: irregular rhythm - GI/Abdominal GI/Abdominal exam: Present: normal bowel sounds, soft - Extremities Exam Extremities exam: Present: normal capillary refill, normal inspection - Neurological Exam Additional comments: She is awake with eyes open. Follows simple commands. Shakes her head "no" frequently. - Skin Skin exam: Present: dry, pallor, warm Palliative Quality Palliative Quality: Screen for Code Status: Yes, Screen for Goals of Care: Yes, Screen for Pain: Yes, If Pain Regimen Started, Initiate Bowel Regimen: NA, Screen for Nausea/Vomitting: Yes Code Status: 02/03/18 22:58 Resuscitation Status: Active [RES] Routine Comment: Resuscitation Status: [id number] Resuscitation Status: Active [RES] Routine Comment: Resuscitation Status: Full Code 02/05/18 16:25 CODE [Resuscitation Status: Active] [RES] Routine Comment: Resuscitation Status: DNR-Comfort Care-Arrest - Labs CBC & Chem 7: 02/08/18 04:00 02/08/18 04:00 Labs: Laboratory Results - last 24 hr 02/07/18 02/07/18 02/07/18 04:27 04:45 07:23 WBC RBC Hgb Hct MCV MCH MCHC RDW Plt Count MPV Immature Gran % Seg Neutrophils % Lymphocytes % Monocytes % Eosinophils % Basophils % Neutrophils # Lymphocytes # Monocytes # Eosinophils # Basophils # Sample Site ABG pH ABG pCO2 ABG pO2 ABG HCO3 ABG Total CO2 ABG O2 Saturation ABG Base Excess Max Test Respiration Rate O2 Delivery Device Blood Gas Modality Inspired O2 Tidal Volume PEEP Sodium Potassium Chloride Carbon Dioxide BUN Creatinine Est GFR ( Amer) Est GFR (Non-Af Amer) BUN/Creatinine Ratio Glucose POC Glucose 137 H 179 H Calculated Osmolality Calcium Blood Type A NEGATIVE Antibody Screen POSITIVE A Antibody Identification Known Anti-S Crossmatch See Detail MTS Gel Crossmatch See Detail 02/07/18 02/07/18 02/07/18 11:31 15:40 18:57 WBC 8.3 RBC 2.54 L Hgb 7.3 L Hct 22.6 L MCV 89.0 MCH 28.7 MCHC 32.3 RDW 18.3 H Plt Count 190 MPV 10.7 Immature Gran % 0.4 Seg Neutrophils % 81.7 Lymphocytes % 10.4 Monocytes % 5.1 Eosinophils % 1.8 Basophils % 0.6 Neutrophils # 6.8 Lymphocytes # 0.9 Monocytes # 0.4 Eosinophils # 0.2 Basophils # 0.1 Sample Site ABG pH ABG pCO2 ABG pO2 ABG HCO3 ABG Total CO2 ABG O2 Saturation ABG Base Excess Max Test Respiration Rate O2 Delivery Device Blood Gas Modality Inspired O2 Tidal Volume PEEP Sodium Potassium Chloride Carbon Dioxide BUN Creatinine Est GFR ( Amer) Est GFR (Non-Af Amer) BUN/Creatinine Ratio Glucose POC Glucose 198 H 153 H Calculated Osmolality Calcium Blood Type Antibody Screen Antibody Identification Crossmatch MTS Gel Crossmatch 02/07/18 02/07/18 02/08/18 19:16 23:24 04:00 WBC 8.1 RBC 2.42 L Hgb 6.9 L Hct 21.6 L MCV 89.3 MCH 28.5 MCHC 31.9 RDW 18.5 H Plt Count 179 MPV 11.0 Immature Gran % 0.4 Seg Neutrophils % 78.4 Lymphocytes % 12.4 Monocytes % 4.8 Eosinophils % 3.3 Basophils % 0.7 Neutrophils # 6.3 Lymphocytes # 1.0 Monocytes # 0.4 Eosinophils # 0.3 Basophils # 0.1 Sample Site ABG pH ABG pCO2 ABG pO2 ABG HCO3 ABG Total CO2 ABG O2 Saturation ABG Base Excess Max Test Respiration Rate O2 Delivery Device Blood Gas Modality Inspired O2 Tidal Volume PEEP Sodium Potassium Chloride Carbon Dioxide BUN Creatinine Est GFR ( Amer) Est GFR (Non-Af Amer) BUN/Creatinine Ratio Glucose POC Glucose 162 H 147 H Calculated Osmolality Calcium Blood Type Antibody Screen Antibody Identification Crossmatch MTS Gel Crossmatch 02/08/18 02/08/18 02/08/18 04:00 04:58 06:43 WBC RBC Hgb Hct MCV MCH MCHC RDW Plt Count MPV Immature Gran % Seg Neutrophils % Lymphocytes % Monocytes % Eosinophils % Basophils % Neutrophils # Lymphocytes # Monocytes # Eosinophils # Basophils # Sample Site R Brach R Radial ABG pH 7.60 H* 7.62 H* ABG pCO2 34 L 30 L ABG pO2 62 L 60 L ABG HCO3 33 H 31 H ABG Total CO2 34 H 32 H ABG O2 Saturation 95 95 ABG Base Excess 11 H 9 H Max Test N/A N/A Respiration Rate 14 12 O2 Delivery Device Adult Vent Adult Vent Blood Gas Modality ASSIST CONTROL VC Inspired O2 30.0 30.0 Tidal Volume 550 500 PEEP 5 5 Sodium 139 Potassium 3.4 L Chloride 101 Carbon Dioxide 28 BUN 32 H Creatinine 3.56 H Est GFR ( Amer) 15 L Est GFR (Non-Af Amer) 12 L BUN/Creatinine Ratio 9 Glucose 134 H POC Glucose Calculated Osmolality 297 Calcium 7.3 L Blood Type Antibody Screen Antibody Identification Crossmatch MTS Gel Crossmatch 02/08/18 08:58 WBC RBC Hgb Hct MCV MCH MCHC RDW Plt Count MPV Immature Gran % Seg Neutrophils % Lymphocytes % Monocytes % Eosinophils % Basophils % Neutrophils # Lymphocytes # Monocytes # Eosinophils # Basophils # Sample Site R Brach ABG pH 7.57 H ABG pCO2 34 L ABG pO2 55 L ABG HCO3 31 H ABG Total CO2 32 H ABG O2 Saturation 93 L ABG Base Excess 9 H Max Test Positive Respiration Rate 12 O2 Delivery Device Adult Vent Blood Gas Modality VC Inspired O2 30.0 Tidal Volume 500 PEEP 5 Sodium Potassium Chloride Carbon Dioxide BUN Creatinine Est GFR ( Amer) Est GFR (Non-Af Amer) BUN/Creatinine Ratio Glucose POC Glucose Calculated Osmolality Calcium Blood Type Antibody Screen Antibody Identification Crossmatch MTS Gel Crossmatch - Impressions Impressions Chest X-Ray 02/08/18 04:00 IMPRESSION: Appropriate endotracheal tube positioning. Improving bilateral airspace disease/ edema. D/ / Enrique Schrader / Enrique Schrader Interpreting Provider: Enrique Schrader - ABG Interpretation ABG results: ABG ABG pH 7.57 pH Units (7.32-7.45) H 02/08/18 08:58 ABG pCO2 34 mmHg (35-45) L 02/08/18 08:58 ABG pO2 55 mmHg (85-104) L 02/08/18 08:58 ABG O2 Saturation 93 % (95-98) L 02/08/18 08:58 Consult Discharge Plan - Plan Referrals: Tiffanie Dee [Primary Care Provider] -
[2018-02-08] MEDS: Levothyroxine Sodium 100 MCG VIAL IVP SCH (13:04)
[2018-02-08] MEDS: FentaNYL (PF) 1,000 MCG in 0.9 % Sodium Chloride 80 ML IVC SCH (13:57)
[2018-02-08 15:02] LABS: Basophils # 0.1 K/mcL (0.0-0.2); Basophils % 0.6 %; Eosinophils # 0.7 K/mcL (0.0-0.6); Eosinophils % 7.7 %; Hemoglobin 8.1 g/dL (11.5-15.4); Immature Granulocytes % 0.5 % (0-4); Lymphocytes # 0.8 K/mcL (0.6-4.6); Lymphocytes % 9.1 %; Mean Corpuscular HGB Conc 32.4 g/dL (31.6-35.5); Mean Corpuscular Hemoglobin 28.7 pg (28.0-33.3); Mean Corpuscular Volume 88.7 fL (83.0-100.0); Mean Platelet Volume 11.2 fL (9.4-12.4); Monocytes # 0.5 K/mcL (0.0-1.3); Monocytes % 5.7 %; Neutrophils # 7.1 K/mcL (1.6-8.9); Nucleated Red Blood Cells 0.2 /100 WBC (0); Platelet Count 177 K/mcL (140-400); Red Blood Count 2.82 M/mcL (3.82-4.97); Segmented Neutrophils % 76.4 %
--- NOTE | 2018-02-08 15:40 | Event Note ---
Date of Encounter: 02/08/18 Time of Encounter: 14:50 Meeting with patient daughter and 3 sisters, primary nurse Kristine, myself, and Dr. Kemp regarding goals of care. Family in agreement that patient desires extubation, and they do not want to prolong intubation any further. Discussed that she may or may not do well, that she may not tolerate bipap, and has the risk of developing respiratory distress. If this occurs, family does not want her re-intubated, but would want her kept comfortable at that point. Code status transitioned to DNR/DNI, continuing all other supportive care at this time. Family educated that she will initially not be given po while on bipap. All family verbalized understanding.
--- NOTE | 2018-02-08 15:42 | Event Note ---
<JustoJoe - Last Filed: 02/08/18 15:36> Date of Encounter: 02/08/18 Time of Encounter: 15:36 Family had her arrived at approximately 1500 myself, palliative care, nursing spoke with family including daughter who is power of [place] attorney and sisters about goals of care. Family decided that they want patient to be extubated and to be no longer intubated. They want patient to be a DNI at this time. Spoke with family about placing patient on CPAP. They were okay with that we also x-rayed awareness stopped the amiodarone drip but keep the antibiotics running due to her no pneumonia. Family is okay with this plan. Patient was successfully extubated by risk story therapy. Amiodarone was stopped Precedex and fentanyl are being continued for comfort measures. We spoke with family again and they said they do not want chest compressions or any electrical shocks to be done or any medication to be given in case she undergoes cardiac arrest. Family wants BiPAP to be removed as patient wants water we explained to them after she has water we are unable to put it back on due to aspiration risk and they understand this. Patient's DNR at this time was again confirmed that she is a DNR CC. This order was changed both myself and the nurse talked with family and they agree this is the plan. <Dreek Hidalgo - Last Filed: 02/08/18 15:49> Date of Encounter: 02/08/18 This is discussed with the resident and agree
[2018-02-08] MEDS ORDERED: Acetaminophen IV 500 MG/50 ML INFUS..BTL IVPB ONE (19:42)
[2018-02-09] MEDS: Ipratropium/Albuterol Neb 3 ML IH SCH ×6 (00:07→20:36)
[2018-02-09] MEDS: Dexmedetomidine HCl 400 MCG/100 ML MLS IVC SCH ×2 (00:12→08:04)
[2018-02-09] MEDS: Insulin LISPRO 300 UNITS/3 ML VIAL SQ SCH ×6 (04:30→23:33)
[2018-02-09 04:38] LABS: Basophils # 0.1 K/mcL (0.0-0.2); Basophils % 0.7 %; Eosinophils # 0.6 K/mcL (0.0-0.6); Eosinophils % 7.3 %; Hemoglobin 8.5 g/dL (11.5-15.4); Immature Granulocytes % 0.5 % (0-4); Immature Platelets 5.3 % (1.1-6.1); Lymphocytes # 1.3 K/mcL (0.6-4.6); Mean Corpuscular HGB Conc 32.7 g/dL (31.6-35.5); Mean Corpuscular Hemoglobin 29.4 pg (28.0-33.3); Mean Platelet Volume 11.3 fL (9.4-12.4); Monocytes # 0.5 K/mcL (0.0-1.3); Monocytes % 6.5 %; Neutrophils # 5.8 K/mcL (1.6-8.9); Platelet Count 171 K/mcL (140-400); Red Blood Count 2.89 M/mcL (3.82-4.97); Red Cell Distribution Width 18.6 % (11.5-14.5)
[2018-02-09 04:59] LABS: Calcium 8.2 mg/dL (8.6-10.3); Potassium 4.2 mEq/L (3.5-5.1)
[2018-02-09] MEDS: FentaNYL (PF) 1,000 MCG in 0.9 % Sodium Chloride 80 ML IVC SCH (06:35)
[2018-02-09] MEDS: Piperacillin/Tazobactam 3.375 GM in 0.9 % Sodium Chloride Mini Bag 100 ML IVPB SCH ×2 (06:37→15:04)
[2018-02-09] MEDS: Levothyroxine Sodium 100 MCG VIAL IVP SCH ×2 (08:04→09:00)
[2018-02-09] MEDS ORDERED: Naloxone 0.4 MG/ML INJ IVP PRN (08:10)
[2018-02-09] MEDS ORDERED: Acetaminophen 325 MG TABLET PO PRN (08:10)
[2018-02-09] MEDS ORDERED: 0.9 % Sodium Chloride 1,000 ML PRIME SCH (08:10)
[2018-02-09] MEDS ORDERED: 0.9 % Sodium Chloride 250 ML IVC PRN (08:10)
[2018-02-09] MEDS ORDERED: D5% in Water 1,000 ML IVC PRN (08:10)
[2018-02-09] MEDS ORDERED: Ondansetron 4 MG/2 ML VIAL IVP PRN (08:10)
[2018-02-09] MEDS ORDERED: *HR* Dextrose 50 % in Water (Syg) 50 ML SYRINGE IVP PRN (08:10)
[2018-02-09] MEDS ORDERED: Levalbuterol Neb 1.25 MG/3 ML IH PRN (08:10)
[2018-02-09] MEDS ORDERED: Dextrose Gel 15 GM/37.5 ML TUBE PO PRN ×2 (08:10)
--- NOTE | 2018-02-09 08:22 | Internal Med Progress Note ---
Date of Encounter: 02/09/18 Time of Encounter: 10:41 - Assessment and plan (1) Acute respiratory failure with hypoxia and hypercapnia Current Visit: Yes Status: Acute (2) HCAP (healthcare-associated pneumonia) Current Visit: Yes Status: Acute (3) Sepsis Current Visit: Yes Status: Acute Qualifiers: Sepsis type: sepsis due to unspecified organism Qualified Code(s): A41.9 - Sepsis, unspecified organism (4) Atrial fibrillation Current Visit: Yes Status: Chronic Qualifiers: Atrial fibrillation type: paroxysmal Qualified Code(s): I48.0 - Paroxysmal atrial fibrillation (5) GI bleed Current Visit: Yes Status: Acute Qualifiers: GI bleed type/associated pathology: anorectal hemorrhage Qualified Code(s) : K62.5 - Hemorrhage of anus and rectum (6) ESRD on hemodialysis Current Visit: Yes Status: Chronic (7) Essential hypertension Current Visit: Yes Status: Chronic (8) Hyperlipidemia Current Visit: Yes Status: Chronic Qualifiers: Hyperlipidemia type: unspecified Qualified Code(s): E78.5 - Hyperlipidemia , unspecified (9) CAD (coronary artery disease) Current Visit: Yes Status: Chronic Qualifiers: Coronary Disease-Associated Artery/Lesion type: [place] artery [place] vs. transplanted heart: [place] heart Associated angina: without angina Qualified Code(s): I25.10 - Atherosclerotic heart disease of [place] coronary artery without angina pectoris (10) Hypothyroidism Current Visit: Yes Status: Chronic Qualifiers: Hypothyroidism type: unspecified Qualified Code(s): E03.9 - Hypothyroidism , unspecified - Time Spent With Patient Total time spent is greater than 50% in coordination of care (as documented) at patient's floor/unit and/or counseling patient: - Subjective Interval history: Late last night family decided to change to a DNI so patient was extubated and placed on CPAP. Patient did not tolerate the CPAP so we removed it and place patient on nasal cannula oxygen and gave her ice chips. Family at this time then decided to change to a DNR CC so the amiodarone as well as all other lines were stopped except for the Zosyn. Now the patient is on comfort care measures patient is going to be transferred to a palliative bed. - Constitutional Vitals: Temp Pulse Resp BP Pulse Ox 97.7 F 91 24 148/67 100 02/09/18 07:37 02/09/18 07:00 02/09/18 07:38 02/09/18 05:00 02/09/18 07:38 General appearance: Present: A&O X 3 (slightly drowsy but able to answer appropriately), severe distress, answers questions appropriately Internal Medicine: Result - Labs CBC & Chem 7: 02/09/18 03:30 02/09/18 04:05 Labs: Short CBC 02/08/18 02/09/18 Range/Units 14:00 03:30 WBC 9.3 8.4 (4.3-11.1) K/mcL Hgb 8.1 L 8.5 L (11.5-15.4) g/dL Hct 25.0 L 26.0 L (35.3-44.9) % Plt Count 177 171 (140-400) K/mcL Neutrophils # 7.1 5.8 (1.6-8.9) K/mcL BMP 02/09/18 04:05 Sodium 140 Potassium 4.2 Chloride 99 Carbon Dioxide 28 BUN 26 H Creatinine 3.13 H Glucose 87 Calcium 8.2 L - ABG Interpretation ABG results: ABG ABG pH 7.57 pH Units (7.32-7.45) H 02/08/18 08:58 ABG pCO2 34 mmHg (35-45) L 02/08/18 08:58 ABG pO2 55 mmHg (85-104) L 02/08/18 08:58 ABG O2 Saturation 93 % (95-98) L 02/08/18 08:58 - VTE Documentation of Mechanical Device: Intermittent pneumatic compression device Consult Discharge Plan - Plan Referrals: Tiffanie Dee [Primary Care Provider] -
--- NOTE | 2018-02-09 09:09 | Nephrology Progress Note ---
Date of Encounter: 02/09/18 Time of Encounter: 09:06 - Assessment and Plan (1) ESRD on hemodialysis Current Visit: Yes Status: Chronic Patient now a DNI, DNR CC Will need to clarify if patient/family wishes to continue dialysis. If so will plan for HD tomorrow as tolerated (2) Atrial fibrillation with RVR Current Visit: Yes Status: Acute per primary team (3) Acute respiratory failure with hypoxia and hypercapnia Current Visit: Yes Status: Acute per pulmonary team (4) HCAP (healthcare-associated pneumonia) Current Visit: Yes Status: Acute per primary team Subjective Principal diagnosis: ESRD Interval history: Patient seen and examined in ICU. Extubated and sitting up in bed; states she is feeling ok. Objective - Vital Signs Vital signs: Vital Signs Temp Pulse Resp BP Pulse Ox 02/09/18 07:38 24 100 02/09/18 07:37 97.7 F 02/09/18 07:00 91 02/09/18 05:00 79 24 148/67 97 02/09/18 03:30 76 02/09/18 03:00 98.2 F 76 20 135/69 100 02/09/18 01:00 78 26 129/70 100 02/09/18 00:24 99.0 F 02/09/18 00:08 34 96 02/08/18 23:15 74 24 116/58 94 02/08/18 21:00 79 26 132/64 99 02/08/18 20:33 101 F H 02/08/18 20:32 30 124/63 100 02/08/18 19:30 80 25 124/63 100 02/08/18 18:00 82 26 126/58 100 02/08/18 17:00 92 28 132/74 100 02/08/18 16:30 100.4 F H 95 24 122/62 100 02/08/18 15:20 22 147/81 95 02/08/18 15:17 147/81 95 02/08/18 15:00 96 16 137/75 93 02/08/18 14:00 102 17 115/83 93 02/08/18 13:30 80 14 121/62 92 02/08/18 13:10 16 137/69 89 02/08/18 12:30 98.8 F 16 114/66 02/08/18 12:15 87 13 118/76 91 02/08/18 12:00 124/72 02/08/18 11:45 109/56 02/08/18 11:30 108/50 02/08/18 11:20 98.9 F 113 12 103/71 96 02/08/18 11:15 103/71 02/08/18 11:05 36 127/49 93 02/08/18 11:00 118/59 02/08/18 10:45 112/63 02/08/18 10:30 129/62 02/08/18 10:18 99.4 F 85 18 114/59 97 02/08/18 10:16 86 14 122/56 93 02/08/18 10:15 122/56 02/08/18 10:03 99.9 F H 97 18 129/53 92 02/08/18 10:00 131/53 02/08/18 09:48 100.3 F H 92 20 112/54 100 02/08/18 09:45 115/53 02/08/18 09:30 87 14 125/47 96 02/08/18 09:15 100.2 F H 18 130/63 Intake and Output 02/08/18 02/09/18 02/09/18 23:59 07:59 15:59 Intake Total 300 / 300 200 / 200 Output Total 50 / 50 35 / 35 Balance 250 / 250 165 / 165 Intake: IV Fluids 250 / 250 200 / 200 PRECEDEX Premix 400 mcg In 100 100 / 100 200 / 200 ml @ 0.2 MCG/KG/HR 4.08 mls/hr IVC .Q24H ALISA Rx#:[id number] Ofirmev 1,000 mg/100 ml 500 mg 50 / 50 In 50 ml @ 200 mls/hr IVPB ONCE ONE Rx#:[id number] Zosyn 3.375 GM In 0.9 % Sodium 100 / 100 Chloride (Mini-Bag +) 100 ML @ 25 mls/hr IVPB Q12H [facility] Rx#: [id number] Oral 50 / 50 Output: Catheter 50 / 50 35 / 35 Urethral ([place]) 50 / 50 Other: Stool Size Small Stool Consistency loose Stool Color Brown Weight 84.6 kg Blood Glucose* 105 89 Patient Weight 02/09/18 23:59 Weight 84.6 kg - General Appearance General appearance: Present: chronically ill, frail EENT: Present: ATNC, hearing intact Neck: Present: supple Respiratory: Present: clear (decreased breath sounds) Cardiology: Present: edema, regular rate, regular rhythm Gastrointestinal: Present: no tenderness, no guarding Integumentary: Present: warm and dry Neurologic: Present: alert and oriented x3 Psychiatric: Present: mood/affect appropriate, cooperative - Lab 02/09/18 03:30 02/09/18 04:05 Most recent lab results ABG pH 7.57 pH Units (7.32-7.45) H 02/08/18 08:58 ABG pCO2 34 mmHg (35-45) L 02/08/18 08:58 ABG pO2 55 mmHg (85-104) L 02/08/18 08:58 ABG HCO3 31 mEq/L (21-27) H 02/08/18 08:58 ABG O2 Saturation 93 % (95-98) L 02/08/18 08:58 Calcium 8.2 mg/dL (8.6-10.3) L 02/09/18 04:05 Phosphorus 3.8 mg/dL (2.7-4.5) 02/05/18 03:45 Magnesium 1.7 mg/dL (1.6-2.6) 02/06/18 04:08 - VTE Documentation of Mechanical Device: Intermittent pneumatic compression device Consult Discharge Plan - Plan Referrals: Tiffanie Dee [Primary Care Provider] -
--- NOTE | 2018-02-09 09:32 | Palliative Progress Note ---
Date of Encounter: 02/09/18 Time of Encounter: 09:30 - Assessment and plan (1) Generalized pain Current Visit: Yes Status: Acute Assessment and plan: Fentanyl drip has been discontinued. Will order SL Oxycodone for pain and monitor. (2) Anxiety Current Visit: Yes Status: Acute Assessment and plan: Will begin low dose SL Lorazepam if needed and monitor. (3) Counseling regarding advanced care planning and goals of care Current Visit: Yes Status: Acute Assessment and plan: As of yesterday, daughter transitioned to DNRCC, but still desired to continue supportive treatment with IV antibiotics/dialysis. She is unsure this am what she wants to continue, but keeps stating she wants to go home. She has been stable overnight - some fever this am. Speech consult for swallow eval as she had few choking episodes last night. Will meet up with family when they arrive today. (4) GI bleed Current Visit: Yes Status: Acute Qualifiers: GI bleed type/associated pathology: anorectal hemorrhage Qualified Code(s) : K62.5 - Hemorrhage of anus and rectum (5) ESRD on hemodialysis Current Visit: Yes Status: Chronic (6) Atrial fibrillation Current Visit: Yes Status: Chronic Qualifiers: Atrial fibrillation type: paroxysmal Qualified Code(s): I48.0 - Paroxysmal atrial fibrillation (7) HCAP (healthcare-associated pneumonia) Current Visit: Yes Status: Acute - Time Spent With Patient Total time spent is greater than 50% in coordination of care (as documented) at patient's floor/unit and/or counseling patient: 25 - 35 minutes - Subjective Interval history: Patient awake/alert, oriented to person and place. Extubated yesterday. States "I feel terrible". States breathing well, denies discomfort. Asking for ice chips. No family has arrived as of yet. Asking "when can I go home, I just want to go home. If it's my time, let the Lord take me. I'm ready". - Constitutional Vitals: Abnormal lab results RBC 2.89 M/mcL (3.82-4.97) L 02/09/18 03:30 Hgb 8.5 g/dL (11.5-15.4) L 02/09/18 03:30 Hct 26.0 % (35.3-44.9) L 02/09/18 03:30 RDW 18.6 % (11.5-14.5) H 02/09/18 03:30 Nucleated RBCs/100 WBC 0.2 /100 WBC (0) H 02/08/18 14:00 Anisocytosis 1+ (Not Present) A 02/04/18 04:48 ABG pH 7.57 pH Units (7.32-7.45) H 02/08/18 08:58 ABG pCO2 34 mmHg (35-45) L 02/08/18 08:58 ABG pO2 55 mmHg (85-104) L 02/08/18 08:58 ABG HCO3 31 mEq/L (21-27) H 02/08/18 08:58 ABG Total CO2 32 mEq/L (20-26) H 02/08/18 08:58 ABG O2 Saturation 93 % (95-98) L 02/08/18 08:58 ABG Base Excess 9 mEq/L (-2 to 3) H 02/08/18 08:58 VBG pH 7.52 pH Units (7.32-7.42) H 02/07/18 04:25 VBG pO2 196 mmHg (25-50) H 02/07/18 04:25 VBG HCO3 36 mEq/L (21-27) H 02/07/18 04:25 BUN 26 mg/dL (8-23) H 02/09/18 04:05 Creatinine 3.13 mg/dL (0.60-1.20) H 02/09/18 04:05 Est GFR ( Amer) 17 (> 60) L 02/09/18 04:05 Est GFR (Non-Af Amer) 14 (> 60) L 02/09/18 04:05 POC Glucose 102 mg/dL (70-99) H 02/08/18 23:45 Calcium 8.2 mg/dL (8.6-10.3) L 02/09/18 04:05 Total Bilirubin 1.1 mg/dL (0.3-1.0) H 02/04/18 13:17 Alkaline Phosphatase 109 Units/L (34-104) H 02/04/18 13:17 B-Natriuretic Peptide 1779 pg/mL (Less than 100) H 02/06/18 04:08 Serum Total Protein 5.7 g/dL (6.4-8.9) L 02/04/18 13:17 Albumin 2.8 g/dL (3.5-5.7) L 02/05/18 03:45 Albumin/Globulin Ratio 1.0 (1.1-2.2) L 02/04/18 13:17 Antibody Screen POSITIVE A 02/07/18 04:45 General appearance: Present: mild distress - Respiratory Additional comments: Rales noted to all lung abdalla, right greater than left. - Cardiovascular Cardiovascular exam: Present: irregular rhythm - GI/Abdominal GI/Abdominal exam: Present: normal bowel sounds, soft - Extremities Exam Additional comments: Generalized edema to all extremities. - Neurological Exam Neurological exam: Present: alert, strengths equal and symetr throughout Additional comments: Generalized weakness. Oriented to person and place, needs reoriented to time and situation. - Skin Skin exam: Present: dry, pallor, warm Palliative Quality Palliative Quality: Screen for Code Status: Yes, Screen for Goals of Care: Yes, Screen for Pain: Yes, If Pain Regimen Started, Initiate Bowel Regimen: NA, Screen for Nausea/Vomitting: Yes Code Status: 02/03/18 22:58 Resuscitation Status: Active [RES] Routine Comment: Resuscitation Status: [id number] Resuscitation Status: Active [RES] Routine Comment: Resuscitation Status: Full Code 02/05/18 16:25 CODE [Resuscitation Status: Active] [RES] Routine Comment: Resuscitation Status: DNR-Comfort Care-Arrest 02/08/18 15:01 DNR [Resuscitation Status: Active] [RES] Routine Comment: Resuscitation Status: [id number] DNR [Resuscitation Status: Active] [RES] Routine Comment: Resuscitation Status: DNR-Comfort Care - Labs CBC & Chem 7: 02/09/18 03:30 02/09/18 04:05 Labs: Laboratory Results - last 24 hr 02/07/18 02/08/18 02/08/18 04:45 03:44 07:13 WBC RBC Hgb Hct MCV MCH MCHC RDW Plt Count MPV Immature Gran % Seg Neutrophils % Lymphocytes % Monocytes % Eosinophils % Basophils % Neutrophils # Lymphocytes # Monocytes # Eosinophils # Basophils # Nucleated RBCs/100 WBC Immature Plt Fraction Sodium Potassium Chloride Carbon Dioxide BUN Creatinine Est GFR ( Amer) Est GFR (Non-Af Amer) BUN/Creatinine Ratio Glucose POC Glucose 156 H 132 H Calculated Osmolality Calcium Blood Type A NEGATIVE Antibody Screen POSITIVE A Antibody Identification Known Anti-S Crossmatch See Detail MTS Gel Crossmatch See Detail 02/08/18 02/08/18 02/08/18 11:27 14:00 16:49 WBC 9.3 RBC 2.82 L Hgb 8.1 L Hct 25.0 L MCV 88.7 MCH 28.7 MCHC 32.4 RDW 18.0 H Plt Count 177 MPV 11.2 Immature Gran % 0.5 Seg Neutrophils % 76.4 Lymphocytes % 9.1 Monocytes % 5.7 Eosinophils % 7.7 Basophils % 0.6 Neutrophils # 7.1 Lymphocytes # 0.8 Monocytes # 0.5 Eosinophils # 0.7 H Basophils # 0.1 Nucleated RBCs/100 WBC 0.2 H Immature Plt Fraction Sodium Potassium Chloride Carbon Dioxide BUN Creatinine Est GFR ( Amer) Est GFR (Non-Af Amer) BUN/Creatinine Ratio Glucose POC Glucose 116 H 141 H Calculated Osmolality Calcium Blood Type Antibody Screen Antibody Identification Crossmatch MTS Gel Crossmatch 02/08/18 02/08/18 02/09/18 19:52 23:45 03:30 WBC 8.4 RBC 2.89 L Hgb 8.5 L Hct 26.0 L MCV 90.0 MCH 29.4 MCHC 32.7 RDW 18.6 H Plt Count 171 MPV 11.3 Immature Gran % 0.5 Seg Neutrophils % 69.0 Lymphocytes % 16.0 Monocytes % 6.5 Eosinophils % 7.3 Basophils % 0.7 Neutrophils # 5.8 Lymphocytes # 1.3 Monocytes # 0.5 Eosinophils # 0.6 Basophils # 0.1 Nucleated RBCs/100 WBC Immature Plt Fraction 5.3 Sodium Potassium Chloride Carbon Dioxide BUN Creatinine Est GFR ( Amer) Est GFR (Non-Af Amer) BUN/Creatinine Ratio Glucose POC Glucose 105 H 102 H Calculated Osmolality Calcium Blood Type Antibody Screen Antibody Identification Crossmatch MTS Gel Crossmatch 02/09/18 04:05 WBC RBC Hgb Hct MCV MCH MCHC RDW Plt Count MPV Immature Gran % Seg Neutrophils % Lymphocytes % Monocytes % Eosinophils % Basophils % Neutrophils # Lymphocytes # Monocytes # Eosinophils # Basophils # Nucleated RBCs/100 WBC Immature Plt Fraction Sodium 140 Potassium 4.2 Chloride 99 Carbon Dioxide 28 BUN 26 H Creatinine 3.13 H Est GFR ( Amer) 17 L Est GFR (Non-Af Amer) 14 L BUN/Creatinine Ratio 8 Glucose 87 POC Glucose Calculated Osmolality 294 Calcium 8.2 L Blood Type Antibody Screen Antibody Identification Crossmatch MTS Gel Crossmatch - ABG Interpretation ABG results: ABG ABG pH 7.57 pH Units (7.32-7.45) H 02/08/18 08:58 ABG pCO2 34 mmHg (35-45) L 02/08/18 08:58 ABG pO2 55 mmHg (85-104) L 02/08/18 08:58 ABG O2 Saturation 93 % (95-98) L 02/08/18 08:58 Consult Discharge Plan - Plan Referrals: Tiffanie Dee [Primary Care Provider] -
[2018-02-09] MEDS ORDERED: *HR* LORazepam Oral Conc 2 MG/ML PO PRN ×2 (09:40→14:35)
[2018-02-09] MEDS ORDERED: OXYCODONE Oral CONC 10 MG/0.5 ML ORAL.SYG SL PRN (09:40)
--- NOTE | 2018-02-09 10:46 | Pulmonology Progress Note ---
<Joe Kemp - Last Filed: 02/09/18 10:43> Date of Encounter: 02/09/18 Time of Encounter: 10:43 Assessment and Plan (1) Acute respiratory failure with hypoxia and hypercapnia Current Visit: Yes Status: Acute Due to middle lower lobe pneumonia Review chest x-ray which shows no worsening progression of the pneumonia. Reviewed ABG which today shows pH 7.71 PCO2 25 bicarbonate 31 ventilator tidal volume and respiratory rate were changed accordingly. Patient is still intubated and on the ventilator. Patient is now only on Zosyn. Blood culture showed no growth Legionella panel negative. Respiratory viral panel negative, sputum cultures still pending. Strict I's and O's will continue follow-up chest x-rays will continue diuresis with Lasix 40 mg daily. Nephrology dialyzed today. They did say they can do ultrafiltration if needed to remove fluid but based on exam patient does not seem fluid overload at this time so will not do that. Patient will continue getting her Tuesday hemodialysis. ABG today did show an alkalosis. The night seem to change the vent settings to help with alkalosis repeat ABG again showed alkalosis at 7.57/34/55/31/93/9. This was likely is due to metabolic alkalosis. Nephrology by doing hemodialysis should take care of a lot of this alkalosis. We will await labs in the morning and continue to monitor this and have nephrology follow. Palliative care spoke with the family and made them a DNI where the patient was then extubated we did place on CPAP patient did not tolerate that so placed on 4 L via nasal cannula. Patient was given ice chips and when she did have that we explained that due to aspiration or she cannot go back on CPAP family and patient both understood. He only decided to change CODE STATUS to DNR CC due to this patient was transferred today to the palliative care side in 2A. they are going talk to the family about whether or not hemodialysis needs to be continued. (2) HCAP (healthcare-associated pneumonia) Current Visit: Yes Status: Acute Serial blood cultures came back negative sputum culture still pending Continue Zosyn. As its okay to have even on comfort care measures. Patient is having low-grade fevers we do have Tylenol given when necessary in his current was Zosyn and cultures have gotten reordered and are still pending at this time. (3) Sepsis Current Visit: Yes Status: Acute Patient did meet sepsis criteria when she was here as she was tachycardic to the fever and the ears known source of infection with the middle lower lobe pneumonia. She was placed on Zosyn and vancomycin broad-spectrum antibiotics. Blood cultures are came back negative sputum cultures are still pending. At this time we will de-escalate antibiotics to only Zosyn and stop the vancomycin. We will continue to monitor sepsis. Patient is not in septic shock at this time not needing pressors Patient did spike a fever but is not hypotensive at this time so there is no signs of septic shock. Patient is still septic. We will continue to monitor Patient is uncomfortable care measures so all other medications have been stopped. Qualifiers: Sepsis type: sepsis due to unspecified organism Qualified Code(s): A41.9 - Sepsis, unspecified organism (4) Atrial fibrillation Current Visit: Yes Status: Chronic Patient was in A. fib with RVR last night most likely due to being in respiratory distress. Amiodarone was started. Metoprolol 12.5 mg is given twice daily as well as Lopressor is ordered when necessary heart rate greater than 130. We are not anticoagulate the patient due to her being here for a GI bleed. After reviewing old records we found out the patient was never taking Pradaxa and has never been taking Pradaxa. The only anticoagulation she is on is aspirin and Plavix. These are still stopped at this time. Patient is no longer taking amiodarone as she is now Comfort Care measures. We also not giving her an anticoagulant. Qualifiers: Atrial fibrillation type: paroxysmal Qualified Code(s): I48.0 - Paroxysmal atrial fibrillation (5) GI bleed Current Visit: Yes Status: Acute This is the patient's presenting illness. She did have bright red blood per rectum There is been no signs of bright red blood per rectum since being in the ICU. Hemoglobin stable at 7.2. Continue holding anticoagulation Continue to monitor hemoglobin closely. GI has consulted see their consult note recommendations as we will do colonoscopy when patient stabilizes they do not see any bleeding at this time. Patient did have a decrease in her hemoglobin which could be coming from her possible GI bleed. Although there is no blood per rectum based on exam. We again gave 1 unit of packed red blood cells and will repeat a CBC later today. We will continue to monitor this as blood may be needed. Blood was given during hemodialysis today We will stop monitoring the H&H and giving blood as patient is now on Comfort Care measures. Family okay with this plan. Qualifiers: GI bleed type/associated pathology: anorectal hemorrhage Qualified Code(s) : K62.5 - Hemorrhage of anus and rectum (6) ESRD on hemodialysis Current Visit: Yes Status: Chronic No missed hemodialysis sessions she got hemodialysis yesterday. We will continue doing hemodialysis Tuesday. Continue to follow nephrology's recommendations for dialysis Family is unsure if they want to continue hemodialysis now on Comfort Care measures we will speak with palliative about this. Nephrology is still following dialysis is due tomorrow (7) Essential hypertension Current Visit: Yes Status: Chronic Will resume home meds (8) Hyperlipidemia Current Visit: Yes Status: Chronic Will resume home meds Qualifiers: Hyperlipidemia type: unspecified Qualified Code(s): E78.5 - Hyperlipidemia , unspecified (9) CAD (coronary artery disease) Current Visit: Yes Status: Chronic Will resume home meds Qualifiers: Coronary Disease-Associated Artery/Lesion type: [place] artery [place] vs. transplanted heart: [place] heart Associated angina: without angina Qualified Code(s): I25.10 - Atherosclerotic heart disease of [place] coronary artery without angina pectoris (10) Hypothyroidism Current Visit: Yes Status: Chronic We will resume home meds Qualifiers: Hypothyroidism type: unspecified Qualified Code(s): E03.9 - Hypothyroidism , unspecified Subjective Principal diagnosis: ESRD Interval history: Patient s family overnight decided to make her a DNI so patient was extubated she was immediately placed on CPAP she did not tolerate that well since she is placed on nasal cannula via 4 L. Patient's oxygen saturations stayed 100%. We did give her ice chips and explained due to aspiration or she cannot go back on CPAP family and patient both understood. At this time family also stated to be DNR CC which was changed. Due to patient being Comfort Care patient is going to be transferred to a palliative bed. Objective PUL Vital signs: Last Vital Signs Temp 98.3 F 02/09/18 09:55 Pulse 90 02/09/18 09:55 Resp 15 02/09/18 09:55 BP 144/72 02/09/18 09:55 Pulse Ox 90 02/09/18 09:55 General appearance: no acute distress, alert Eyes: nonicteric ENT: oropharynx moist Neck: supple Effort: normal Auscultation: bilateral: diminished breath sounds Cardiovascular: regular rate and rhythm Gastrointestinal: normoactive bowel sounds, non-distended Integumentary: normal Extremities: no cyanosis, no clubbing, edema (1+ bilaterally) Musculoskeletal: no deformities, ROM normal normal mental status, non-focal exam, pupils equal and round, motor strength normal and symmetric Results - Laboratory Findings CBC and BMP: 02/09/18 03:30 02/09/18 04:05 ABG ABG pH 7.57 pH Units (7.32-7.45) H 02/08/18 08:58 ABG pCO2 34 mmHg (35-45) L 02/08/18 08:58 ABG pO2 55 mmHg (85-104) L 02/08/18 08:58 ABG O2 Saturation 93 % (95-98) L 02/08/18 08:58 Abnormal lab findings: Abnormal lab results RBC 2.89 M/mcL (3.82-4.97) L 02/09/18 03:30 Hgb 8.5 g/dL (11.5-15.4) L 02/09/18 03:30 Hct 26.0 % (35.3-44.9) L 02/09/18 03:30 RDW 18.6 % (11.5-14.5) H 02/09/18 03:30 Nucleated RBCs/100 WBC 0.2 /100 WBC (0) H 02/08/18 14:00 Anisocytosis 1+ (Not Present) A 02/04/18 04:48 ABG pH 7.57 pH Units (7.32-7.45) H 02/08/18 08:58 ABG pCO2 34 mmHg (35-45) L 02/08/18 08:58 ABG pO2 55 mmHg (85-104) L 02/08/18 08:58 ABG HCO3 31 mEq/L (21-27) H 02/08/18 08:58 ABG Total CO2 32 mEq/L (20-26) H 02/08/18 08:58 ABG O2 Saturation 93 % (95-98) L 02/08/18 08:58 ABG Base Excess 9 mEq/L (-2 to 3) H 02/08/18 08:58 VBG pH 7.52 pH Units (7.32-7.42) H 02/07/18 04:25 VBG pO2 196 mmHg (25-50) H 02/07/18 04:25 VBG HCO3 36 mEq/L (21-27) H 02/07/18 04:25 BUN 26 mg/dL (8-23) H 02/09/18 04:05 Creatinine 3.13 mg/dL (0.60-1.20) H 02/09/18 04:05 Est GFR ( Amer) 17 (> 60) L 02/09/18 04:05 Est GFR (Non-Af Amer) 14 (> 60) L 02/09/18 04:05 POC Glucose 102 mg/dL (70-99) H 02/08/18 23:45 Calcium 8.2 mg/dL (8.6-10.3) L 02/09/18 04:05 Total Bilirubin 1.1 mg/dL (0.3-1.0) H 02/04/18 13:17 Alkaline Phosphatase 109 Units/L (34-104) H 02/04/18 13:17 B-Natriuretic Peptide 1779 pg/mL (Less than 100) H 02/06/18 04:08 Serum Total Protein 5.7 g/dL (6.4-8.9) L 02/04/18 13:17 Albumin 2.8 g/dL (3.5-5.7) L 02/05/18 03:45 Albumin/Globulin Ratio 1.0 (1.1-2.2) L 02/04/18 13:17 Antibody Screen POSITIVE A 02/07/18 04:45 - Microbiology Findings Microbiology Findings: Microbiology, Last 48 Hours 02/07/18 11:52 Blood Culture - Preliminary Peripheral Venipuncture No growth. 02/07/18 11:52 Blood Culture - Preliminary Peripheral Venipuncture No growth. - Clinical Findings Intake & Output: Intake & Output 02/08/18 02/09/18 02/09/18 23:59 07:59 15:59 Intake Total 300 / 300 200 / 200 Output Total 50 / 50 35 / 35 Balance 250 / 250 165 / 165 Weight 84.6 kg - VTE Documentation of Mechanical Device: Intermittent pneumatic compression device Consult Discharge Plan - Plan Referrals: Tiffanie Dee [Primary Care Provider] - <Derek Hidalgo M - Last Filed: 02/09/18 10:56> Date of Encounter: 02/09/18 Objective PUL Vital signs: Last Vital Signs Temp 98.3 F 02/09/18 09:55 Pulse 90 02/09/18 09:55 Resp 15 02/09/18 09:55 BP 144/72 02/09/18 09:55 Pulse Ox 90 02/09/18 09:55 Results - Laboratory Findings CBC and BMP: 02/09/18 03:30 02/09/18 04:05 ABG ABG pH 7.57 pH Units (7.32-7.45) H 02/08/18 08:58 ABG pCO2 34 mmHg (35-45) L 02/08/18 08:58 ABG pO2 55 mmHg (85-104) L 02/08/18 08:58 ABG O2 Saturation 93 % (95-98) L 02/08/18 08:58 Abnormal lab findings: Abnormal lab results RBC 2.89 M/mcL (3.82-4.97) L 02/09/18 03:30 Hgb 8.5 g/dL (11.5-15.4) L 02/09/18 03:30 Hct 26.0 % (35.3-44.9) L 02/09/18 03:30 RDW 18.6 % (11.5-14.5) H 02/09/18 03:30 Nucleated RBCs/100 WBC 0.2 /100 WBC (0) H 02/08/18 14:00 Anisocytosis 1+ (Not Present) A 02/04/18 04:48 ABG pH 7.57 pH Units (7.32-7.45) H 02/08/18 08:58 ABG pCO2 34 mmHg (35-45) L 02/08/18 08:58 ABG pO2 55 mmHg (85-104) L 02/08/18 08:58 ABG HCO3 31 mEq/L (21-27) H 02/08/18 08:58 ABG Total CO2 32 mEq/L (20-26) H 02/08/18 08:58 ABG O2 Saturation 93 % (95-98) L 02/08/18 08:58 ABG Base Excess 9 mEq/L (-2 to 3) H 02/08/18 08:58 VBG pH 7.52 pH Units (7.32-7.42) H 02/07/18 04:25 VBG pO2 196 mmHg (25-50) H 02/07/18 04:25 VBG HCO3 36 mEq/L (21-27) H 02/07/18 04:25 BUN 26 mg/dL (8-23) H 02/09/18 04:05 Creatinine 3.13 mg/dL (0.60-1.20) H 02/09/18 04:05 Est GFR ( Amer) 17 (> 60) L 02/09/18 04:05 Est GFR (Non-Af Amer) 14 (> 60) L 02/09/18 04:05 POC Glucose 102 mg/dL (70-99) H 02/08/18 23:45 Calcium 8.2 mg/dL (8.6-10.3) L 02/09/18 04:05 Total Bilirubin 1.1 mg/dL (0.3-1.0) H 02/04/18 13:17 Alkaline Phosphatase 109 Units/L (34-104) H 02/04/18 13:17 B-Natriuretic Peptide 1779 pg/mL (Less than 100) H 02/06/18 04:08 Serum Total Protein 5.7 g/dL (6.4-8.9) L 02/04/18 13:17 Albumin 2.8 g/dL (3.5-5.7) L 02/05/18 03:45 Albumin/Globulin Ratio 1.0 (1.1-2.2) L 02/04/18 13:17 Antibody Screen POSITIVE A 02/07/18 04:45 - Microbiology Findings Microbiology Findings: Microbiology, Last 48 Hours 02/07/18 11:52 Blood Culture - Preliminary Peripheral Venipuncture No growth. 02/07/18 11:52 Blood Culture - Preliminary Peripheral Venipuncture No growth. - Clinical Findings Intake & Output: Intake & Output 02/08/18 02/09/18 02/09/18 23:59 07:59 15:59 Intake Total 300 / 300 200 / 200 Output Total 50 / 50 35 / 35 0 / 0 Balance 250 / 250 165 / 165 0 / 0 Weight 84.6 kg - Attending Attestation I examined this patient and my medical decision-making was reviewed with the Resident Physician. I agree with the documented findings, disposition and treatment plan as described except to the extent set forth below. Patient seen and examined. Labs, radiology, chart personally reviewed. Agree with resident's history and physical, assessment, plan with following comments: ANIMAL DOCTOR: Patient follows commands, Pulmonary: Acceptable oxygenation and ventilation Cardiovascular: Relatively stable stable Patient will be transferred to comfort care room in 2A Poor prognosis
[2018-02-09] MEDS: OXYCODONE Oral CONC 10 MG/0.5 ML ORAL.SYG SL PRN ×3 (15:03→22:37)
[2018-02-09] MEDS ORDERED: *HR* FentaNYL (PF) 100 MCG/2 ML VIAL IVP PRN (15:06)
[2018-02-09] MEDS ORDERED: *HR* LORazepam 2 MG/ML VIAL ONE (20:01)
[2018-02-09] MEDS: *HR* LORazepam Oral Conc 2 MG/ML PO PRN (20:07)
[2018-02-10] MEDS: Ipratropium/Albuterol Neb 3 ML IH SCH ×7 (00:21→23:01)
[2018-02-10] MEDS: OXYCODONE Oral CONC 10 MG/0.5 ML ORAL.SYG SL PRN ×3 (03:00→13:53)
[2018-02-10] MEDS: *HR* LORazepam Oral Conc 2 MG/ML PO PRN ×3 (03:00→13:53)
[2018-02-10] MEDS: Piperacillin/Tazobactam 3.375 GM in 0.9 % Sodium Chloride Mini Bag 100 ML IVPB SCH ×2 (04:15→14:27)
[2018-02-10 06:42] LABS: Hematocrit 29.1 % (35.3-44.9); Hemoglobin 9.2 g/dL (11.5-15.4); Mean Corpuscular HGB Conc 31.6 g/dL (31.6-35.5); Mean Corpuscular Volume 91.8 fL (83.0-100.0); Mean Platelet Volume 11.2 fL (9.4-12.4); Nucleated Red Blood Cells 0.4 /100 WBC (0); Platelet Count 212 K/mcL (140-400); Red Blood Count 3.17 M/mcL (3.82-4.97); Red Cell Distribution Width 18.5 % (11.5-14.5)
[2018-02-10 06:55] LABS: Calcium 8.5 mg/dL (8.6-10.3); Potassium 4.6 mEq/L (3.5-5.1)
[2018-02-10 07:22] LABS: Eosinophils # 0.2 K/mcL (0.0-0.6); Lymphocytes # 2.7 K/mcL (0.6-4.6); Monocytes # 0.7 K/mcL (0.0-1.3); Neutrophils # 8.5 K/mcL (1.6-8.9); Reactive Lymphocytes Present (Not Present)
[2018-02-10 07:24] LABS: Anisocytosis 1+ (Not Present); Platelet Estimate Normal (Normal); Polychromasia 1+ (Not Present)
[2018-02-10] MEDS: Insulin LISPRO 300 UNITS/3 ML VIAL SQ SCH ×2 (09:11→12:05)
[2018-02-10] MEDS: Levothyroxine Sodium 100 MCG VIAL IVP SCH (09:15)
--- NOTE | 2018-02-10 11:30 | Palliative Progress Note ---
Date of Encounter: 02/10/18 Time of Encounter: 09:00 - Assessment and plan (1) Generalized pain Current Visit: Yes Status: Acute Assessment and plan: Continue Oxycodone at ordered and titrate as needed. This was increased yesterday as she was not getting enough relief. MOnitor (2) Anxiety Current Visit: Yes Status: Acute Assessment and plan: Continue Lorazepam as ordered. This also had to be increased in frequency yesterday, as it was not controlling her anxiety for the duration of time. Monitor. (3) Counseling regarding advanced care planning and goals of care Current Visit: Yes Status: Acute Assessment and plan: Awaiting family to arrive today. Her daughter called me yesterday evening, and stated pt said she no longer desired to continue with dialysis, and was ready to "pass away". The patient's sister also said she made the same statement. Daughter asked that I ask pt again this am to clarify, however, she is not communicating this am. Did d/w Dr. Kemp, that pt may no longer want dialysis. Will f/u this afternoon. If they decide to proceed with hospice care, they have history of utilizing [facility] for other family member, and sister states they would most likely utilize [facility] for care. (4) GI bleed Current Visit: Yes Status: Acute Qualifiers: GI bleed type/associated pathology: anorectal hemorrhage Qualified Code(s) : K62.5 - Hemorrhage of anus and rectum (5) ESRD on hemodialysis Current Visit: Yes Status: Chronic (6) Atrial fibrillation Current Visit: Yes Status: Chronic Qualifiers: Atrial fibrillation type: paroxysmal Qualified Code(s): I48.0 - Paroxysmal atrial fibrillation (7) HCAP (healthcare-associated pneumonia) Current Visit: Yes Status: Acute - Time Spent With Patient Total time spent is greater than 50% in coordination of care (as documented) at patient's floor/unit and/or counseling patient: - Subjective Interval history: Patient somnolent, I am unable to awaken with verbal or tactile stimuli. She is sleeping quietly - respirations reg, skin warm, appears in no distress. She was recently medicated for pain and anxiety. Primary nurse reports she was anxious and moaning earlier this am, but was alert. No family is at bedside. - Constitutional Vitals: Abnormal lab results WBC 12.1 K/mcL (4.3-11.1) H 02/10/18 06:16 RBC 3.17 M/mcL (3.82-4.97) L 02/10/18 06:16 Hgb 9.2 g/dL (11.5-15.4) L 02/10/18 06:16 Hct 29.1 % (35.3-44.9) L 02/10/18 06:16 RDW 18.5 % (11.5-14.5) H 02/10/18 06:16 Nucleated RBCs/100 WBC 0.4 /100 WBC (0) H 02/10/18 06:16 Reactive Lymphocytes Present (Not Present) A 02/10/18 06:16 Polychromasia 1+ (Not Present) A 02/10/18 06:16 Anisocytosis 1+ (Not Present) A 02/10/18 06:16 ABG pH 7.57 pH Units (7.32-7.45) H 02/08/18 08:58 ABG pCO2 34 mmHg (35-45) L 02/08/18 08:58 ABG pO2 55 mmHg (85-104) L 02/08/18 08:58 ABG HCO3 31 mEq/L (21-27) H 02/08/18 08:58 ABG Total CO2 32 mEq/L (20-26) H 02/08/18 08:58 ABG O2 Saturation 93 % (95-98) L 02/08/18 08:58 ABG Base Excess 9 mEq/L (-2 to 3) H 02/08/18 08:58 VBG pH 7.52 pH Units (7.32-7.42) H 02/07/18 04:25 VBG pO2 196 mmHg (25-50) H 02/07/18 04:25 VBG HCO3 36 mEq/L (21-27) H 02/07/18 04:25 Carbon Dioxide 30 mEq/L (23-29) H 02/10/18 06:16 BUN 37 mg/dL (8-23) H 02/10/18 06:16 Creatinine 4.35 mg/dL (0.60-1.20) H 02/10/18 06:16 Est GFR ( Amer) 12 (> 60) L 02/10/18 06:16 Est GFR (Non-Af Amer) 10 (> 60) L 02/10/18 06:16 Calcium 8.5 mg/dL (8.6-10.3) L 02/10/18 06:16 Total Bilirubin 1.1 mg/dL (0.3-1.0) H 02/04/18 13:17 Alkaline Phosphatase 109 Units/L (34-104) H 02/04/18 13:17 B-Natriuretic Peptide 1779 pg/mL (Less than 100) H 02/06/18 04:08 Serum Total Protein 5.7 g/dL (6.4-8.9) L 02/04/18 13:17 Albumin 2.8 g/dL (3.5-5.7) L 02/05/18 03:45 Albumin/Globulin Ratio 1.0 (1.1-2.2) L 02/04/18 13:17 Antibody Screen POSITIVE A 02/07/18 04:45 General appearance: Present: no acute distress - Respiratory Additional comments: Crackles noted throughout all lung abdalla. - Cardiovascular Cardiovascular exam: Present: irregular rhythm, tachycardia - GI/Abdominal GI/Abdominal exam: Present: normal bowel sounds, soft - Extremities Exam Extremities exam: Present: normal capillary refill, normal inspection - Neurological Exam Additional comments: Somnolent this am. Does not follow commands, does not respond to verbal or tactile stimuli. - Skin Skin exam: Present: dry, pallor, warm Palliative Quality Palliative Quality: Screen for Code Status: Yes, Screen for Goals of Care: Yes, Screen for Pain: Yes, If Pain Regimen Started, Initiate Bowel Regimen: NA, Screen for Nausea/Vomitting: Yes Code Status: 02/03/18 22:58 Resuscitation Status: Active [RES] Routine Comment: Resuscitation Status: [id number] Resuscitation Status: Active [RES] Routine Comment: Resuscitation Status: Full Code 02/05/18 16:25 CODE [Resuscitation Status: Active] [RES] Routine Comment: Resuscitation Status: DNR-Comfort Care-Arrest 02/08/18 15:01 DNR [Resuscitation Status: Active] [RES] Routine Comment: Resuscitation Status: [id number] DNR [Resuscitation Status: Active] [RES] Routine Comment: Resuscitation Status: DNR-Comfort Care - Labs CBC & Chem 7: 02/10/18 06:16 02/10/18 06:16 Labs: Laboratory Results - last 24 hr 02/09/18 02/09/18 02/09/18 07:15 12:05 16:35 WBC RBC Hgb Hct MCV MCH MCHC RDW Plt Count MPV Seg Neutrophils % Lymphocytes % Monocytes % Eosinophils % Neutrophils # Lymphocytes # Monocytes # Eosinophils # Nucleated RBCs/100 WBC Reactive Lymphocytes Platelet Estimate Polychromasia Anisocytosis Sodium Potassium Chloride Carbon Dioxide BUN Creatinine Est GFR ( Amer) Est GFR (Non-Af Amer) BUN/Creatinine Ratio Glucose POC Glucose 89 92 104 H Calculated Osmolality Calcium 02/09/18 02/09/18 02/10/18 19:12 22:28 04:35 WBC RBC Hgb Hct MCV MCH MCHC RDW Plt Count MPV Seg Neutrophils % Lymphocytes % Monocytes % Eosinophils % Neutrophils # Lymphocytes # Monocytes # Eosinophils # Nucleated RBCs/100 WBC Reactive Lymphocytes Platelet Estimate Polychromasia Anisocytosis Sodium Potassium Chloride Carbon Dioxide BUN Creatinine Est GFR ( Amer) Est GFR (Non-Af Amer) BUN/Creatinine Ratio Glucose POC Glucose 128 H 95 87 Calculated Osmolality Calcium 02/10/18 02/10/18 02/10/18 06:16 06:16 07:38 WBC 12.1 H RBC 3.17 L Hgb 9.2 L Hct 29.1 L MCV 91.8 MCH 29.0 MCHC 31.6 RDW 18.5 H Plt Count 212 MPV 11.2 Seg Neutrophils % 70.0 Lymphocytes % 22.0 Monocytes % 6.0 Eosinophils % 2.0 Neutrophils # 8.5 Lymphocytes # 2.7 Monocytes # 0.7 Eosinophils # 0.2 Nucleated RBCs/100 WBC 0.4 H Reactive Lymphocytes Present A Platelet Estimate Normal Polychromasia 1+ A Anisocytosis 1+ A Sodium 139 Potassium 4.6 Chloride 99 Carbon Dioxide 30 H BUN 37 H Creatinine 4.35 H Est GFR ( Amer) 12 L Est GFR (Non-Af Amer) 10 L BUN/Creatinine Ratio 9 Glucose 71 POC Glucose 77 Calculated Osmolality 295 Calcium 8.5 L - ABG Interpretation ABG results: ABG ABG pH 7.57 pH Units (7.32-7.45) H 02/08/18 08:58 ABG pCO2 34 mmHg (35-45) L 02/08/18 08:58 ABG pO2 55 mmHg (85-104) L 02/08/18 08:58 ABG O2 Saturation 93 % (95-98) L 02/08/18 08:58 Consult Discharge Plan - Plan Referrals: Tiffanie Dee [Primary Care Provider] -
--- NOTE | 2018-02-10 16:58 | Internal Med Progress Note ---
Date of Encounter: 02/10/18 Time of Encounter: 15:57 - Assessment and plan (1) Palliative care patient Current Visit: Yes Status: Acute Assessment and plan: Palliative care consulted; appreciate input. Patient is comfort care; will defer comfort care orders to palliative team. Patient is in no distress at this time. Plan for discharge home with [facility] in AM. (2) GI bleed Current Visit: Yes Status: Acute Assessment and plan: No further monitoring of H&H and no more blood products as patient is palliative care with comfort care orders as per above. Qualifiers: GI bleed type/associated pathology: anorectal hemorrhage Qualified Code(s) : K62.5 - Hemorrhage of anus and rectum (3) ESRD on hemodialysis Current Visit: Yes Status: Chronic Assessment and plan: Patient now requesting discontinuation of hemodialysis. Will discontinue order and notify [facility] supervisor. (4) Essential hypertension Current Visit: Yes Status: Chronic Assessment and plan: Discontinue all medications as patient is now comfort care only. (5) Hyperlipidemia Current Visit: Yes Status: Chronic Assessment and plan: Discontinue all medications as patient is now comfort care only. Qualifiers: Hyperlipidemia type: unspecified Qualified Code(s): E78.5 - Hyperlipidemia , unspecified (6) Atrial fibrillation Current Visit: Yes Status: Chronic Assessment and plan: Discontinue all medications as patient is now comfort care only. Qualifiers: Atrial fibrillation type: paroxysmal Qualified Code(s): I48.0 - Paroxysmal atrial fibrillation (7) CAD (coronary artery disease) Current Visit: Yes Status: Chronic Assessment and plan: Discontinue all medications as patient is now comfort care only. Qualifiers: Coronary Disease-Associated Artery/Lesion type: [place] artery [place] vs. transplanted heart: [place] heart Associated angina: without angina Qualified Code(s): I25.10 - Atherosclerotic heart disease of [place] coronary artery without angina pectoris (8) Hypothyroidism Current Visit: Yes Status: Chronic Assessment and plan: Continue home medications. Qualifiers: Hypothyroidism type: unspecified Qualified Code(s): E03.9 - Hypothyroidism , unspecified (9) Sepsis Current Visit: Yes Status: Acute Assessment and plan: Discontinue antibiotics as patient is now comfort care only. Qualifiers: Sepsis type: sepsis due to unspecified organism Qualified Code(s): A41.9 - Sepsis, unspecified organism (10) HCAP (healthcare-associated pneumonia) Current Visit: Yes Status: Acute Assessment and plan: Discontinue all antibiotics as patient is now comfort care only. (11) Acute respiratory failure with hypoxia and hypercapnia Current Visit: Yes Status: Acute Assessment and plan: Comfort care measures only, like supplemental O2, duonebs, and PRN Bipap. - Time Spent With Patient Total time spent is greater than 50% in coordination of care (as documented) at patient's floor/unit and/or counseling patient: less than 15 minutes - Subjective Interval history: Patient had no acute events overnight. She is resting peacefully in bed this afternoon. She is arousable, and does not voice any concerns. I spoke with palliative care nurse today who states that patient and family have decided to go home with home hospice. Plan for discharge in AM with [facility]. - Constitutional Vitals: Temp Pulse Resp BP Pulse Ox 98.2 F 126 17 101/67 96 02/10/18 14:55 02/10/18 14:55 02/10/18 14:55 02/10/18 14:55 02/10/18 14:55 General appearance: Present: cooperative, pleasant, no acute distress, answers questions appropriately Exam: Sleeping, but easily arousable - Respiratory Respiratory exam: Present: decreased breath sounds. Absent: rales, rhonchi, wheezes Additional comments: Crackles auscultated bilaterally - Cardiovascular Cardiovascular exam: Present: +S1, +S2, tachycardia. Absent: gallop, rubs Additional comments: Irregularly irregular rhythm - GI/Abdominal GI/Abdominal exam: Present: normal bowel sounds, soft. Absent: distended, hepatomegaly, mass, splenomegaly, tenderness - Psychiatric Psychiatric exam: Present: normal affect, normal mood. Absent: agitated, anxious, depressed - Skin Skin exam: Present: dry, intact, warm. Absent: cyanosis, rash Internal Medicine: Result - Labs CBC & Chem 7: 02/10/18 06:16 02/10/18 06:16 Labs: Short CBC 02/10/18 Range/Units 06:16 WBC 12.1 H (4.3-11.1) K/mcL Hgb 9.2 L (11.5-15.4) g/dL Hct 29.1 L (35.3-44.9) % Plt Count 212 (140-400) K/mcL Neutrophils # 8.5 (1.6-8.9) K/mcL BMP 02/10/18 06:16 Sodium 139 Potassium 4.6 Chloride 99 Carbon Dioxide 30 H BUN 37 H Creatinine 4.35 H Glucose 71 Calcium 8.5 L - ABG Interpretation ABG results: ABG ABG pH 7.57 pH Units (7.32-7.45) H 02/08/18 08:58 ABG pCO2 34 mmHg (35-45) L 02/08/18 08:58 ABG pO2 55 mmHg (85-104) L 02/08/18 08:58 ABG O2 Saturation 93 % (95-98) L 02/08/18 08:58 - VTE Reasons for not Prescribing Prophylaxis: Refused by parent (Palliative Care/ Comfort Care) Consult Discharge Plan - Plan Referrals: Tiffanie Dee [Primary Care Provider] - Prescriptions: LORazepam Oral Conc [Ativan Oral Conc] 1 mg PO Q3H PRN 7 Days #30 mls PRN Reason: Anxiety OXYCODONE Oral CONC [Oxycodone Oral Conc] 10 mg PO Q2H PRN 7 Days #30 oral.syg PRN Reason: pain/dyspnea Scopolamine Patch [Transderm-Scop] 1.5 mg TD Q72H PRN #5 patch.td72 PRN Reason: oral secretions
[2018-02-10] MEDS: Atropine Sulfate 1% 40 DROP/2 ML BOTTLE SL PRN (18:02)
--- NOTE | 2018-02-10 19:51 | Nephrology Progress Note ---
Date of Encounter: 02/10/18 Time of Encounter: 09:40 - Assessment and Plan (1) ESRD on hemodialysis Current Visit: Yes Status: Chronic Patient has expressed that she no longer wants dialysis. She is transitioning to palliative care. Will sign off. Please call if question or concerns. (2) Palliative care patient Current Visit: Yes Status: Acute Subjective Principal diagnosis: ESRD Interval history: Ms. Clark is a 77 yo woman with ESRD who is asleep at the time of evaluation. Objective - Vital Signs Vital signs: Vital Signs Temp Pulse Resp BP Pulse Ox 02/10/18 19:00 99.4 F 128 18 103/59 98 02/10/18 14:55 98.2 F 126 17 101/67 96 02/10/18 11:03 18 92 02/10/18 08:00 22 93 02/10/18 07:31 98.6 F 72 24 112/79 92 02/10/18 04:30 20 97 02/10/18 00:20 18 94 02/09/18 21:53 98.8 F 91 30 76/43 99 02/09/18 20:36 20 96 Intake and Output 02/10/18 02/10/18 02/10/18 07:59 15:59 23:59 Intake Total 0 / 0 110 / 110 Output Total 0 / 0 Balance 0 / 0 110 / 110 Intake: IV Fluids 100 / 100 Zosyn 3.375 GM In 0.9 % Sodium 100 / 100 Chloride (Mini-Bag +) 100 ML @ 25 mls/hr IVPB Q12H [facility] Rx#: [id number] Oral 0 / 0 10 / 10 Output: Urine 0 / 0 Other: Meal Lunch Percent of Meal Consumed 5% Stool Size Moderate Small Stool Consistency loose loose soft soft Stool Color Brown Brown # Bowel Movement Diapers 1 1 Blood Glucose* 77 68 - General Appearance General appearance: Present: well-developed, well-nourished EENT: Present: ATNC - Lab 02/10/18 06:16 02/10/18 06:16 Most recent lab results ABG pH 7.57 pH Units (7.32-7.45) H 02/08/18 08:58 ABG pCO2 34 mmHg (35-45) L 02/08/18 08:58 ABG pO2 55 mmHg (85-104) L 05/09/18 08:58 ABG HCO3 31 mEq/L (21-27) H 02/08/18 08:58 ABG O2 Saturation 93 % (95-98) L 02/08/18 08:58 Calcium 8.5 mg/dL (8.6-10.3) L 02/10/18 06:16 Phosphorus 3.8 mg/dL (2.7-4.5) 02/05/18 03:45 Magnesium 1.7 mg/dL (1.6-2.6) 02/06/18 04:08 - VTE Reasons for not Prescribing Prophylaxis: Refused by parent (Palliative Care/ Comfort Care) Documentation of Mechanical Device: Intermittent pneumatic compression device Consult Discharge Plan - Plan Referrals: Tiffanie Dee [Primary Care Provider] - Prescriptions: LORazepam Oral Conc [Ativan Oral Conc] 1 mg PO Q3H PRN 7 Days #30 mls PRN Reason: Anxiety OXYCODONE Oral CONC [Oxycodone Oral Conc] 10 mg PO Q2H PRN 7 Days #30 oral.syg PRN Reason: pain/dyspnea Scopolamine Patch [Transderm-Scop] 1.5 mg TD Q72H PRN #5 patch.td72 PRN Reason: oral secretions
[2018-02-11] MEDS: *HR* LORazepam Oral Conc 2 MG/ML PO PRN ×3 (01:29→14:15)
[2018-02-11] MEDS: OXYCODONE Oral CONC 10 MG/0.5 ML ORAL.SYG SL PRN ×2 (01:29→03:59)
[2018-02-11] MEDS: Ipratropium/Albuterol Neb 3 ML IH SCH ×4 (04:10→15:14)
[2018-02-11] MEDS: Atropine Sulfate 1% 40 DROP/2 ML BOTTLE SL PRN (05:17)
[2018-02-11 07:48] VITALS: BP 103/39
--- NOTE | 2018-02-11 09:53 | Event Note ---
Date of Encounter: 02/11/18 Time of Encounter: 09:00 Patient resting quietly in bed. No family present at bedside. Discharge plan for patient to return home with [facility] today. Prescriptions were written yesterday evening by Tova IRAHETA. [facility] will touch base with patient's nurse today regarding time of discharge. [place] will be setting up patient's hospital bed at home. Patient does not appear in any discomfort at this time. Patient has received: Oxycodone times 3 doses in the last 24 hours, Fentanyl X 0 doses, Zofran X 0 doses, Ativan times 3 doses in the last 24 hours, and Atropine SL X 2 doses in the last 24 hours.
[2018-02-11] MEDS: Levothyroxine Sodium 100 MCG VIAL IVP SCH (10:53)
--- NOTE | 2018-02-11 12:46 | Discharge Summary ---
- NOTES TO OUTPATIENT PROVIDER Notes to Outpatient Provider: Follow up with hospice physician as directed. Orders not resulted at time of discharge: Pending orders 02/04/18 14:08 Culture,Sputum with Gram Stain [RM] Stat 02/05/18 04:00 UA w. reflex microscopic [Urinalysis reflex Microscopic] [URIN] AM 0400 02/07/18 11:40 Culture,Urine [RM] Stat 02/07/18 11:52 Culture,Blood [BC] Stat Date of Encounter: 02/11/18 Time of Encounter: 12:44 - Discharge Diagnosis (1) Palliative care patient Priority: Primary Status: Acute (2) GI bleed Priority: Secondary Status: Acute Qualifiers: GI bleed type/associated pathology: anorectal hemorrhage Qualified Code(s) : K62.5 - Hemorrhage of anus and rectum (3) ESRD on hemodialysis Priority: Secondary Status: Chronic (4) Essential hypertension Priority: Secondary Status: Chronic (5) Hyperlipidemia Priority: Secondary Status: Chronic Qualifiers: Hyperlipidemia type: unspecified Qualified Code(s): E78.5 - Hyperlipidemia , unspecified (6) Atrial fibrillation Priority: Secondary Status: Chronic Qualifiers: Atrial fibrillation type: paroxysmal Qualified Code(s): I48.0 - Paroxysmal atrial fibrillation (7) CAD (coronary artery disease) Priority: Secondary Status: Chronic Qualifiers: Coronary Disease-Associated Artery/Lesion type: [place] artery [place] vs. transplanted heart: [place] heart Associated angina: without angina Qualified Code(s): I25.10 - Atherosclerotic heart disease of [place] coronary artery without angina pectoris (8) Hypothyroidism Priority: Secondary Status: Chronic Qualifiers: Hypothyroidism type: unspecified Qualified Code(s): E03.9 - Hypothyroidism , unspecified (9) Sepsis Priority: Secondary Status: Acute Qualifiers: Sepsis type: sepsis due to unspecified organism Qualified Code(s): A41.9 - Sepsis, unspecified organism (10) HCAP (healthcare-associated pneumonia) Priority: Secondary Status: Acute (11) Acute respiratory failure with hypoxia and hypercapnia Priority: Secondary Status: Acute Hospital course: Ms. Clark is a 77 year old female admitted for GI bleed. She was admitted to general medical floor with telemetry. She met sepsis criteria. IVF held due to ESRD. Home anticoagulation was held. GI and nephrology were consulted. She was started on IV lasix. Broad spectrum antibiotics started for suspected HCAP. H/H held steady. Colonscopy was planned by GI, but wanted to wait for improved renal function. She started experiencing respiratory distress on day 2. She was placed on Bipap. POA at that time agreeable to intubation. She was intubated and transferred to ICU. Please see director food and beverage' s note for full ICU course details. Palliative care was consulted. After family discussion, patient made DNR and comfort care. She was transferred to general medical floor after extubation and family decided on going home with home hospice with [facility]. Patient is currently comfortable and in no distress. She will follow up with hospice physician as directed. Patient has met maximum benefit of this hospitalization and will be discharged home with home hospice. Prognosis is poor. Discharge discussed with: patient, nurse - Time Spent with Patient Total time spent providing and/or coordinating discharge services: Greater than 30 minutes - Discharge Medications Prescriptions: LORazepam Oral Conc [Ativan Oral Conc] 1 mg PO Q3H PRN 7 Days #30 mls PRN Reason: Anxiety OXYCODONE Oral CONC [Oxycodone Oral Conc] 10 mg PO Q2H PRN 7 Days #30 oral.syg PRN Reason: pain/dyspnea Scopolamine Patch [Transderm-Scop] 1.5 mg TD Q72H PRN #5 patch.td72 PRN Reason: oral secretions Home Medications: Albuterol Sulfate [Proair Hfa] 1 puff IH Q4H PRN 02/04/18 [History] Levothyroxine Sodium [Synthroid] 137 mcg PO DAILY@0630 02/04/18 [History] LORazepam Oral Conc [Ativan Oral Conc] 1 mg PO Q3H PRN 7 Days #30 mls 02/10/18 [ Rx] OXYCODONE Oral CONC [Oxycodone Oral Conc] 10 mg PO Q2H PRN 7 Days #30 oral.syg 02/10/18 [Rx] Scopolamine Patch [Transderm-Scop] 1.5 mg TD Q72H PRN #5 patch.td72 02/10/18 [Rx ] Allergies/Adverse Reactions: 3 Allergy/AdvReac Type Severity Reaction Status Date / Time Penicillins AdvReac Unknown See Verified 02/03/18 23:30 Comments Date of admission: 02/03/18 22:58 Primary care physician: [facility] Provider Consults: 02/04/18 01:03 Consult to Gastroenterology [CONS] Routine Consulting Provider: Gastroenterology Zully Reason for Consult: BRBPR Call Completed: Yes 02/04/18 10:57 Consult to Nephrology [CONS] Routine Consulting Provider: Kidney Zully/CYNDY/TEODORO/SMITA Reason for Consult: ESRD pt ..need HD Time Notified: 10:57 Call Completed: Yes 02/06/18 00:39 Consult to Pulmonology [CONS] Routine Consulting Provider: Pulm Crit Care & Sleep Zully Reason for Consult: respiratory failure. on vent Call Completed: No 02/06/18 07:15 Consult to Dialysis [CONS] ONCE 02/06/18 07:59 Consult to Invasive Line Access Team [CONS] Routine Reason for Consult: Limited access Line Type: EPIV 02/06/18 11:22 Consult to Palliative Care [CONS] Routine Comment: Consulting Provider: Palliative Care Zully Reason for Consult: Family is unsure of code status and wanted intubated when pt had DNR DNI signed Time Notified: 11:23 Call Completed: Yes 02/07/18 09:45 Consult to Dialysis [CONS] ONCE 02/08/18 08:15 Consult to Dialysis [CONS] ONCE 02/09/18 09:39 Consult to Speech Therapy [CONS] Routine Comment: Evaluate, develop and implement POC Reason for Consult: swallow eval - extubated yesterday. Some coughing noted with ice chips Call Completed: No Discharging clinician: Carmine Crowley Anticipated date of discharge: 02/11/18 - Constitutional Vitals: Temp Pulse Resp BP Pulse Ox 98.2 F 151 18 103/39 96 02/11/18 07:47 02/11/18 07:47 02/11/18 11:13 02/11/18 07:47 02/11/18 11:13 General appearance: Present: A&O X 0, no acute distress - Respiratory Respiratory exam: Absent: accessory muscle use, rales, rhonchi, wheezes Additional comments: Increased upper airway and bilateral upper lung secretions and crackles, mildly labored WOB - Cardiovascular Cardiovascular exam: Present: +S1, +S2, tachycardia. Absent: diastolic murmur, gallop, rubs, systolic murmur Additional comments: Irregularly irregular rhythm, no BLE edema - GI/Abdominal GI/Abdominal exam: Present: normal bowel sounds, soft. Absent: distended, hepatomegaly, mass, splenomegaly, tenderness - Psychiatric Psychiatric exam: Absent: agitated, anxious, depressed - Skin Skin exam: Present: dry, intact, warm. Absent: cyanosis, rash - Patient Status Disposition: Hospice - Home Condition: Serious Functional capacity at discharge: bed bound Overall status at discharge: patient is not back to baseline - Discharge Instructions Follow Up With: Tiffanie Dee [Primary Care Provider] - Additional Instructions: Follow up with hospice physician as directed. - Diet and Activity Activity: resume usual activities as tolerated Diet: regular diet - VTE Reasons for not Prescribing Prophylaxis: Refused by parent (Palliative Care/ Comfort Care) Documentation of Mechanical Device: Intermittent pneumatic compression device
--- NOTE | 2018-02-11 13:02 | Physician Discharge Referral ---
Home Health/Hosp Referral Info Transfer to: Hospice Provider in Charge Post Discharge: [place] [facility] - Diagnosis (1) Palliative care patient Priority: Primary Status: Acute (2) GI bleed Priority: Secondary Status: Acute (3) ESRD on hemodialysis Priority: Secondary Status: Chronic (4) Essential hypertension Priority: Secondary Status: Chronic (5) Hyperlipidemia Priority: Secondary Status: Chronic (6) Atrial fibrillation Priority: Secondary Status: Chronic (7) CAD (coronary artery disease) Priority: Secondary Status: Chronic (8) Hypothyroidism Priority: Secondary Status: Chronic (9) Sepsis Priority: Secondary Status: Acute (10) HCAP (healthcare-associated pneumonia) Priority: Secondary Status: Acute (11) Acute respiratory failure with hypoxia and hypercapnia Priority: Secondary Status: Acute - Respiratory Orders Oxygen / L per min (PRN comfort) Smoking Cessation: Smoking cessation has been advised. For more information, call the [employer] Tobacco Quit Line at 4-672-HHBU-NOW. - Diet/Nutrition Diet/Nutrition Orders: Regular - Activity Activity Orders: Bedrest - Services Needed Following services are medically necessary services: Nursing, Home Health Aide, Med Social Work Other Treatments: Please follow all palliative care recommendations. - Transfer Medications Prescriptions: LORazepam Oral Conc [Ativan Oral Conc] 1 mg PO Q3H PRN 7 Days #30 mls PRN Reason: Anxiety OXYCODONE Oral CONC [Oxycodone Oral Conc] 10 mg PO Q2H PRN 7 Days #30 oral.syg PRN Reason: pain/dyspnea Scopolamine Patch [Transderm-Scop] 1.5 mg TD Q72H PRN #5 patch.td72 PRN Reason: oral secretions Home Medications: Albuterol Sulfate [Proair Hfa] 1 puff IH Q4H PRN 02/04/18 [History] Levothyroxine Sodium [Synthroid] 137 mcg PO DAILY@0630 02/04/18 [History] LORazepam Oral Conc [Ativan Oral Conc] 1 mg PO Q3H PRN 7 Days #30 mls 02/10/18 [ Rx] OXYCODONE Oral CONC [Oxycodone Oral Conc] 10 mg PO Q2H PRN 7 Days #30 oral.syg 02/10/18 [Rx] Scopolamine Patch [Transderm-Scop] 1.5 mg TD Q72H PRN #5 patch.td72 02/10/18 [Rx ] Allergies/Adverse Reactions: 3 Allergy/AdvReac Type Severity Reaction Status Date / Time Penicillins AdvReac Unknown See Verified 02/03/18 23:30 Comments Certification: Further, I certify that my clinical findings support that this patient is homebound (i.e. absences from home require considerable and taxing effort and are for medical reasons or judaism services or infrequently or short duration when for other reasons) because: palliative/end-of-life care, ESRD. Homebound Reason: Patient requires assistance of a person or device to safely leave home, Absences from home are contraindicated except to recieve medical care, Leaving home requires considerable and taxing effort due to condition, Severity of cardiac or pulmonary status limits activity tolerance Attestation: My signature below is to certify that this patient is under my care and that I, or nurse practitioner, or a physician's head start assistant teacher working with me, has a face-to -face encounter with this patient.
== END 2018-02-11 15:05 | disposition hospice, home (50) | DRG 871 ==
LOC: 2ANU → ICNU 02-05 00:27 → 2ANU 02-09 09:40
PROVIDERS: ADMIT Internal Medicine; ATTEND Internal Medicine